=== PATIENT | female | born 1940 | race African-American/Black ===

== ENCOUNTER 2020-12-03 18:44 | Inpatient (IN) | payer MEDICARE, MEDICAID, SELFPAY ==
[2020-12-03] VITALS (14 sets, daily range): BP systolic 116–142; BP diastolic 65–91; PULSE 57–79; RESP 12–22; TEMP 36.8–37.1; O2SAT 93–100; BMI 21.2
--- NOTE | ~2020-12-03 | CT_ITS ---
EXAMINATION: CT brain wo con DATE: 12/03/2020 20:18 INDICATION: Head injury TECHNIQUE: Computed tomography (CT) of the head was performed without intravenous contrast. The mA wa s adjusted according to patient size. Iterative reconstruction technique was employed. Exam dose: 68 1.00 mGy-cm total exam DLP. COMPARISON: None FINDINGS: Bilateral vertebral artery, basilar artery and bilateral carotid siphon internal carotid ar valerie calcifications. There is nonspecific diminished attenuation of the cerebral white matter, likely due to chronic small vessel ischemic changes. Minimal bilateral basal ganglia calcifications. There is central and cortical cerebral and cerebellar atrophy. No intracranial mass lesion or hemorrhage or cerebrovascular accident is evident. No midline shift or mass effect effect. No subdural or epidural hematoma. No fracture or bone destruction of the cranial vault. Mastoid air cells and paranasal sinuses are unremarkable. IMPRESSION: Cerebral atherosclerosis and chronic small vessel ischemic changes No acute intracranial finding Reviewed, dictated and finalized at [facility]. Reviewed, dictated and finalized at location A.
--- NOTE | ~2020-12-03 | CT_ITS ---
EXAMINATION: CT facial bones wo con DATE: 12/03/2020 20:18 INDICATION: Fall. Pain at top of head, posterior neck TECHNIQUE: Computed tomography (CT) of the facial bones and maxillofacial region was performed withou t intravenous contrast. Automated exposure control and iterative reconstruction technique were employ ed. Exam dose: 681.00 mGy-cm total exam DLP. COMPARISON: None. FINDINGS: The frontozygomatic sutures, orbital rims and tobias, psychotic arches and remainder of the facial bones are intact. No facial bone fracture. Normal alignment at the temporomandibular joints. No mandible fracture. Paranasal sinuses and mastoid air cells are normally developed and aerated. IMPRESSION: No facial fracture Reviewed, dictated and finalized at [facility]. Reviewed, dictated and finalized at location A. IMPRESSION: No facial fracture
--- NOTE | ~2020-12-03 | US_ITS ---
EXAMINATION: US venous doppler [facility] DATE: 12/06/2020 14:41 INDICATION: Lower limb pain and swelling. TECHNIQUE: Grayscale ultrasound images without and with compression and Doppler ultrasound images of the bilateral lower extremity veins were obtained. COMPARISON: None. FINDINGS: The visualized portions of right common femoral vein, profunda (deep) femoral vein, femoral vein, pop liteal vein, peroneal veins, posterior tibial veins, and greater saphenous vein outflow are patent. The visualized portions of left common femoral vein, profunda femoral vein, femoral vein, popliteal v ein, peroneal veins, posterior tibial veins, and greater saphenous vein outflow are patent. IMPRESSION: 1. No deep venous thrombosis. Reviewed, dictated and finalized at location B.
--- NOTE | ~2020-12-03 | XR_ITS ---
XR hip BI 2V w AP pelvis DATE: 12/03/2020 20:28 INDICATION: Pelvic pain following fall TECHNIQUE: AP pelvis. AP and lateral views of each COMPARISON: None FINDINGS: There is diffuse osteopenia. Degenerative disc disease is noted, particularly severe at L4-5 and L5-S1. Calcified uterine fibroids are noted. Normal alignment at the pubic symphysis and sacroiliac joints. No pelvic fracture or bone destruction is evident. No fracture, dislocation, avascular necrosis or bone destruction. Calcification of the iliac and femoral arteries. IMPRESSION: Osteopenia; no pelvic or hip fracture is evident Severe degenerative disc disease at L4-5 and L5-S1 Reviewed, dictated and finalized at location A.
--- NOTE | ~2020-12-03 | XR_ITS ---
XR lumbar spine 2-3V DATE: 12/03/2020 20:29 INDICATION: Fall, back pain TECHNIQUE: AP, lateral, coned lateral lumbosacral views COMPARISON: None FINDINGS: Diffuse osteopenia. No fracture or bone destruction of the lumbar spine is evident. The lumbar pedicles are intact. There is moderate degenerative disc disease at L1-2 and L2-3, mild degenerative disease at L3-4. There is severe degenerative disc disease and mild grade 1 anterolisthesis at L4-5 due to degenerativ e change at the apophyseal joints.. There is severe degenerative disc disease at L5-S1. The cardiac joints are unremarkable. Surgical clips, right upper quadrant, consistent with cholecystectomy. Multiple calcified uterine fibroids. IMPRESSION: Diffuse osteopenia Multilevel degenerative disc disease, particularly severe at L4-5 Degenerative changes of facet joints with associated grade 1 anterolisthesis at L4-5 Status post cholecystectomy Reviewed, dictated and finalized at location A.
--- NOTE | ~2020-12-03 | CT_ITS ---
EXAMINATION: CT cervical spine wo con DATE: 12/03/2020 20:18 INDICATION: Fall. Posterior neck pain TECHNIQUE: Computed tomography (CT) of the cervical spine was performed without intravenous contrast. Automated exposure control and iterative reconstruction technique were employed. Exam dose: 681.00 mGy-cm total exam DLP. COMPARISON: None FINDINGS: C1 and C2 are normally aligned and the odontoid process is intact. No fracture or dislocati on or locked facet or prevertebral soft tissue swelling. Prominent uncovertebral joint spurring is noted at C4-5, C5-6 and C6-7. Degenerative changes of the a pophyseal joints in particular at C7-T1 bilaterally. There is severe degenerative disc disease at C4-5, C5-6 and C6-7 with mild retrolisthesis at C4-5, mi nimal retrolisthesis at C5-6 and C6-7.. IMPRESSION: There are extensive degenerative changes; no fracture or dislocation Reviewed, dictated and finalized at [facility]. Reviewed, dictated and finalized at location A. IMPRESSION: There are extensive degenerative changes; no fracture or dislocati on
--- NOTE | ~2020-12-03 | XR_ITS ---
XR thoracic spine 2V DATE: 12/03/2020 20:29 INDICATION: Fall. Back pain. TECHNIQUE: AP, lateral, swimmer views COMPARISON: None FINDINGS: Diffuse osteopenia. Minimal levoscoliosis. No recent fracture or bone destruction. The thoracic pedicles are intact. There is degenerative spurring of the mid and lower thoracic spine. No paraspinal soft tissue thicken ing. IMPRESSION: Osteopenia and degenerative change; no apparent recent fracture Reviewed, dictated and finalized at location A.
--- NOTE | 2020-12-03 18:46 | ECG_ITS ---
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
[2020-12-03 19:07] LABS: Basophils Percent Auto 0.1 % (0.2-1.2); Hematocrit 37.9 % (37.0-47.0); Hemoglobin 12.6 g/dL (12.0-15.0); Immature Granulocyte Absolute 0.03 K/mm3 (0.00-0.031); Immature Granulocyte Percent A 0.3 % (0-0.5); Lymphocytes Absolute Auto 0.58 K/mm3 (0.9-3.2); Lymphocytes Percent Auto 5.6 % (18.3-44.2); Mean Corpuscular HGB Conc 33.2 g/dl (32-36); Mean Corpuscular Hemoglobin 26.9 pg (26-34); Mean Platelet Volume 10.3 fl (7.4-10.4); Monocytes Absolute Auto 1.2 K/mm3 (0.1-0.6); Monocytes Percent Auto 11.2 % (2.6-8.5); Neutrophils Absolute Auto 8.6 K/mm3 (1.3-6.7); Neutrophils Percent Auto 82.8 % (45.5-73.1); Platelet Count Result 301 k/mm3 (150-375); Red Blood Count 4.68 M/mm3 (4.2-5.4); Red Cell Distribution Width 14.3 % (11.5-14.5); White Blood Count 10.4 K/mm3 (4.5-10.0)
[2020-12-03 19:16] LABS: Anion Gap 11 mmol/L (8-16); Blood Urea Nitrogen 16 mg/dL (7-17); Calcium 9.4 mg/dL (8.4-10.2); Carbon Dioxide 24 mmol/L (22-30); Chloride 106 mmol/L (98-107); Estimated Glomerular Filt Rate > 60; Glucose 181 mg/dL (65-105); Potassium 3.1 mmol/L (3.4-5.0); Sodium 141 mmol/L (137-145)
--- NOTE | 2020-12-03 19:35 | PC.NURSE ---
Received report from BARBARA Romero. Assumed care of patient at this time.
[2020-12-03 19:45] LABS: Add Urine Microscopic? YES; Appearance Urine Cloudy (Clear); Bacteria Urine 4+ /hpf; Bilirubin Urine Negative (Negative); Blood Urine 2+ (Negative); Color Urine Amber (Yellow); Glucose Urine UA Negative (Negative); Ketones Urine 1+ mg/dL (Negative); Leukocyte Esterase Ur 2+ LEU/UL (Negative); Mucus Urine Heavy /lpf; Nitrate Urine Negative (Negative); Protein Urine 3+ mg/dL (Negative); Squamous Epithelial Cell Urine Many /hpf (Few); Urobilinogen Urine Negative mg/dL (<2.0); WBC Clumps Urine Present /HPF; WBC Urine >75 /hpf
[2020-12-03] MEDS: SODIUM CHLORIDE 0.9% IV 1,000 ML 999 ML IV CONT (19:46)
[2020-12-03 20:17] LABS: Prothrombin Time 13.9 Seconds (11.1-14.7)
[2020-12-03 20:18] LABS: Partial Thromboplastin Time 41.7 SECONDS (22.3-36.8)
[2020-12-03 20:21] LABS: Alanine Aminotransferase 24 U/L (4-35); Albumin Level 3.4 g/dL (3.5-5.1); Alkaline Phosphatase 85 U/L (38-126); Aspartate Amino Transferase 48 U/L (14-36); Bilirubin,Total 0.6 mg/dL (0.2-1.3); Creatine Kinase 418 U/L (30-135); Magnesium 1.1 mg/dL (1.6-2.3)
[2020-12-03 20:32] LABS: Troponin I 0.018 ng/mL (0.000-0.034)
--- NOTE | 2020-12-03 21:19 | ED.GENADULT ---
HPI - General Adult General Chief complaint: Fall Stated complaint: UNRESPONSIVE Time Seen by Provider: 12/03/20 19:24 History of Present Illness HPI narrative: Patient 80-year-old female who presents the emergency department with chief complaint of frequent falls and generalized weakness. The patient lives independently and her son checks on her every few days patient states over the last several days she has been having episodes where she falls and then has to crawl on the floor but this evening she fell laid on the floor for she thinks probably approximately 24 hours patient denies loss of consciousness does report that she hit her head when she fell and reports that she had pain in her neck. Patient states her hips are sore and the patient states that she just feels much weaker than normal. Patient denies chest pain denies shortness of breath. The patient reports symptoms are now improved by anything nor they worsened by anything. Related Data Home Medications Medication Instructions Recorded Confirmed acetaminophen 500 mg tablet 500 mg PO DAILY PRN tablet 09/15/19 08/02/20 amlodipine 5 mg tablet 5 mg PO DAILY 09/15/19 08/02/20 aspirin 81 mg chewable tablet 81 mg PO DAILY 09/15/19 08/02/20 bismuth subsalicylate 262 mg 2 tablet PO .prn tablet 09/15/19 08/02/20 chewable tablet blood sugar diagnostic #10 each 09/15/19 08/02/20 calcium carbonate 200 mg calcium 200 mg PO .prn tablet 09/15/19 08/02/20 (500 mg) chewable tablet calcium carbonate 500 mg calcium 500 mg PO DAILY 09/15/19 08/02/20 (1,250 mg) tablet multivit with 1 tablet PO DAILY 09/15/19 08/02/20 cwyexink-smzp-XT-lutein 8 mg iron-400 mcg-300 mcg tablet potassium chloride 20 mEq 20 meq PO DAILY 09/15/19 08/02/20 tablet,extended release telmisartan 40 mg tablet 40 mg PO DAILY 09/15/19 08/02/20 Allergies Allergy/AdvReac Type Severity Reaction Status Date / Time codeine Allergy Unknown Unknown Verified 12/03/20 19:46 Review of Systems Review of Systems: Narrative: A 10 system review of systems was completed on the patient and is negative except for what is stated in the HPI. Nursing and ancillary documentation was reviewed. [facility] Past Medical History Medical History (Updated 12/03/20 @ 21:21 by Sathya Clifton MD) Anemia Arthritis Cataracts, both eyes Chicken pox Diabetes FH: cholecystectomy (~1998) FHx: migraine headaches Glaucoma High cholesterol Hx of one miscarriage Kidney disease Tonsillitis Family History Family History Father , 79 Heart attack Mother , 83 Heart attack Exam Narrative: Exam Narrative: GENERAL: Well-appearing, well-nourished, and in no acute distress. HEAD: Normocephalic, atraumatic. EYES: PERRLA and EOMI. ENT: Nares clear, no rhinorrhea or epistaxis. Mucous membranes moist. NECK: Supple. Mild tenderness to palpation of the midline of the cervical spine CHEST: Clear to auscultation. No respiratory distress. HEART: Regular rate and rhythm. No murmur heard. Normal peripheral pulses. ABDOMEN: Soft, nontender, nondistended, normal active bowel sounds. EXTREMITIES: Normal range of motion. No edema. SKIN: Warm, dry, no rash. NEURO: No focal deficits. Alert and oriented x3. PSYCH: Normal mood and affect. Course Vital Signs Vital signs: Vital Signs Temperature 36.9 C 12/03/20 18:47 Pulse Rate 61 12/03/20 18:47 Respiratory Rate 18 12/03/20 18:47 Blood Pressure 116/91 H 12/03/20 18:47 Pulse Oximetry 100 12/03/20 18:47 Temperature 36.9 C 12/03/20 18:47 Pulse Rate 58 L 12/03/20 20:50 Respiratory Rate 19 12/03/20 20:50 Blood Pressure 116/91 H 12/03/20 18:55 Pulse Oximetry 100 12/03/20 20:50 Medical Decision Making Vital Signs Vital Signs: Vital Signs Temperature 36.9 C 12/03/20 18:47 Pulse Rate 61 12/03/20 18:47 Respiratory Rate 18 12/03/20 18:47 Blood Pr
[2020-12-03] MEDS: MAGNESIUM SULF 4 GM/WATER100ML 4 GM/100 ML BAG IVPB (22:17)
[2020-12-03] MEDS: POTASSIUM CHLORIDE 20 MEQ PACKET (FOR LIQUID) 40 MEQ PO (22:19)
--- NOTE | 2020-12-03 23:02 | ADMGEN ---
This patient, Luna Conner, was admitted to Medical Room 255-. Patient/family oriented to hospital policies and general routines including ID bracelet, bed and alarms, visiting hours, pain management, procedures, bathroom and other care routines, personal items, smoking policy, room service/diet, and visiting hours. Information on how to activate the Rapid Response Team has been discussed. Patient/Family are encouraged to report perceived risks to care and to ask questions if they do not understand what they are told or what they should do.
[2020-12-03] MEDS: SODIUM CHLORIDE 0.9% IV 1,000 ML 125 ML IV CONT (23:28)
--- NOTE | 2020-12-03 23:56 | PC.NURSE ---
Called Patients Son, Moses Warner per telephone. Discussed patients history and current medications. He said she uses [facility] and she just received Eye drops from doctor that they will bring in tomorrow she has not filled her eye drops at [facility]. Unable to add the Eye drops into her medication list. Son said her eye drops are at her house. He will bring them in tomorrow.
[2020-12-04] VITALS (8 sets, daily range): BP systolic 98–133; BP diastolic 61–74; PULSE 60–117; RESP 16–20; TEMP 36.3–36.6; O2SAT 94–99
--- NOTE | 2020-12-04 03:37 | PM.IMHP ---
H&P: HPI History of Present Illness Date/Time: 12/04/20 03:37 Chief Complaint: Fall Narrative: 80-year-old female with past medical history of type 2 diabetes, hypertension and urge urinary incontinence who presented to the ER via EMS after being found down after falling at home. The patient lives in her own home but her son comes and checks on her every couple of days. It is unclear exactly how long the patient was down on the floor. It is assumed that the patient was on the floor for 24 hours. The patient's son reports the patient has been weaker than usual. She had evidently been getting up from using the restroom and felt weak and fell to the floor. She is usually able to crawl to get assistance or to use furniture to get up. This time she was so weak she was unable to crawl back to her bedroom. From what I can tell it sounds as if the patient has had multiple falls at home. She cannot give a time frame as to the falls. She reports that she hurts all over. The patient evidently has some episodes of confusion at baseline. The patient denies any head injury but reports that she hurts all over. She reports that she has been walking with a cane. She has chronic urge incontinence and wears depends at home. She denies any dysuria. She states that her urine may be more foul-smelling than usual. She denies any chest pain or shortness of breath. She has not had any cough or congestion. Review of Systems Review of Systems: Narrative: 12 systems were reviewed with pertinent positives and negatives per HPI. Except as documented in the HPI, all other systems were reviewed and are negative. However, the patient has periods of confusion making review of systems difficult PMF Past Medical History Medical History (Updated 12/04/20 @ 09:07 by Ricarda Starkey DO) Anemia Arthritis Chicken pox Dementia Mild dementia Diabetes Essential hypertension GERD (gastroesophageal reflux disease) Glaucoma High cholesterol Urge urinary incontinence Surgical History Surgical History (Updated 12/04/20 @ 03:40 by Ricarda Starkey DO) Hx of cholecystectomy (~1998) Status post cataract extraction of both eyes with insertion of intraocular lens Family History Family History Father , 79 Heart attack Mother , 83 Heart attack Social History Social History (Updated 12/04/20 @ 08:59 by Ricarda Starkey, DO) Social History: She is and lives at home alone. 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 Smoking status: Former smoker Tobacco type: cigarettes Additional smoking assessment comments: Pt states she smoked for about 9years Alcohol intake: never Substance use: never Substance use type: does not use Gender identity (if verbalized by the patient): Female Spiritual care concerns: No Meds Home Medications and Allergies Home Medications Medication Instructions Recorded Confirmed Type acetaminophen 500 mg tablet 500 mg PO DAILY PRN tablet 09/15/19 12/03/20 History amlodipine 5 mg tablet 5 mg PO DAILY 09/15/19 12/03/20 History potassium chloride 20 mEq 20 meq PO DAILY 09/15/19 12/03/20 History tablet,extended release atorvastatin 40 mg tablet 40 mg PO DAILY #90 tablet 10/06/20 12/03/20 Rx metoprolol succinate 200 mg 200 mg PO BID #180 tablet 10/06/20 12/03/20 Rx tablet,extended release 24 hr metformin 1,000 mg PO BID 12/03/20 12/03/20 History oxybutynin chloride 5 mg PO BID 12/03/20 12/03/20 History pantoprazole 40 mg PO DAILY 12/03/20 12/03/20 History Allergies Allergy/AdvReac Type Severity Reaction Status Date / Time codeine Allergy Unknown Unknown Verified 12/04/20 04:14 Vital Signs Vital Signs - 24 hr 12/03/20 18:47 12/03/20 18:55 12/03/20 18:57 Temperature 98.5 F Pulse Rate 61 61 57 L Respiratory Rate 18 H Blood Pressure 116/91 H 116/91 H Pulse Oximetry 100 99 100 12/03/20 19
[2020-12-04 05:38] LABS: Basophils Percent Auto 0.1 % (0.2-1.2); Hematocrit 38.5 % (37.0-47.0); Hemoglobin 12.1 g/dL (12.0-15.0); Immature Granulocyte Absolute 0.03 K/mm3 (0.00-0.031); Immature Granulocyte Percent A 0.4 % (0-0.5); Lymphocytes Absolute Auto 0.77 K/mm3 (0.9-3.2); Lymphocytes Percent Auto 9.4 % (18.3-44.2); Mean Corpuscular HGB Conc 31.4 g/dl (32-36); Mean Corpuscular Hemoglobin 26.2 pg (26-34); Mean Corpuscular Volume 83.3 fl (80-100); Mean Platelet Volume 10.3 fl (7.4-10.4); Monocytes Absolute Auto 1.1 K/mm3 (0.1-0.6); Monocytes Percent Auto 13.4 % (2.6-8.5); Neutrophils Absolute Auto 6.3 K/mm3 (1.3-6.7); Neutrophils Percent Auto 76.7 % (45.5-73.1); Platelet Count Result 281 k/mm3 (150-375); Red Blood Count 4.62 M/mm3 (4.2-5.4); Red Cell Distribution Width 14.6 % (11.5-14.5); White Blood Count 8.2 K/mm3 (4.5-10.0)
[2020-12-04 05:50] LABS: Anion Gap 8 mmol/L (8-16); Blood Urea Nitrogen 12 mg/dL (7-17); Calcium 8.6 mg/dL (8.4-10.2); Carbon Dioxide 25 mmol/L (22-30); Chloride 110 mmol/L (98-107); Creatine Kinase 218 U/L (30-135); Estimated CRCL calculation 59 ml/min; Estimated Glomerular Filt Rate > 60; Glucose 154 mg/dL (65-105); Potassium 3.3 mmol/L (3.4-5.0); Sodium 143 mmol/L (137-145)
[2020-12-04] MEDS: SODIUM CHLORIDE 0.9% IV 1,000 ML 125 ML IV CONT (07:31)
[2020-12-04 07:53] LABS: Hemoglobin A1C 6.9 % (<5.7)
[2020-12-04] MEDS: metFORMIN HCL 500 MG TABLET 1000 MG PO (08:18)
[2020-12-04] MEDS: amLODIPine BESYLATE 5 MG TABLET PO (08:19)
[2020-12-04] MEDS: PANTOPRAZOLE 40 MG TABLET PO (08:19)
[2020-12-04] MEDS: POTASSIUM CHLORIDE 20 MEQ TABLET.ER PO (08:19)
[2020-12-04] MEDS: ATORVASTATIN 40 MG TABLET PO (08:19)
[2020-12-04 08:31] LABS: Glucose Point of Care 157 (65-105)
[2020-12-04] MEDS: ACETAMINOPHEN 325 MG TABLET 650 MG PO (08:31)
--- NOTE | 2020-12-04 11:52 | PM.IMPN ---
Progress Note: A&P Assessment and Plan (1) Urinary tract infection: Qualifiers: Hematuria presence: without hematuria Urinary tract infection type: site unspecified Qualified Code(s): N39.0 - Urinary tract infection, site not specified Code(s): N39.0 - Urinary tract infection, site not specified Status: Acute Assessment and Plan: Urinalysis abnormal upon presentation. Mild leukocytosis upon presentation has resolved. She is afebrile. She noted to previous provider foul-smelling urine but denies additional urinary symptoms. Continue IV Rocephin. Started 12/03/2020 Continue gentle IV fluids Urine culture pending. Await results and tailor antibiotics accordingly (2) Frequent falls: Code(s): R29.6 - Repeated falls Status: Acute Assessment and Plan: Patient had a mechanical fall at home, where she lives alone. It is estimated that she was on the floor for 24 hours. CK is 218. Head CT with no acute findings. No acute injuries identified on facial CT, cervical spine CT, thoracic and lumbar x-ray, or hip and pelvis x-ray. She has a history of multiple falls at home. Fall precautions in place PT/OT eval appreciated Care coordination following. It seems that patient is unsafe to live at home alone. (3) Hypokalemia: Code(s): E87.6 - Hypokalemia Status: Acute Assessment and Plan: Potassium was 3.1 at presentation. It appears that she has chronic hyponatremia as she is on daily potassium supplements. 3.3 today Continue with 20 mEq KCL daily Monitor potassium levels (4) Hypomagnesemia: Code(s): E83.42 - Hypomagnesemia Status: Acute Assessment and Plan: Magnesium was 1.1 at presentation and was supplemented. Improved at 2.0 today. (5) Diabetes mellitus: Qualifiers: Diabetes mellitus complication status: without complication Diabetes mellitus fdc insulin use: without fdc use Diabetes mellitus type: type 2 Qualified Code(s): E11.9 - Type 2 diabetes mellitus without complications Code(s): E11.9 - Type 2 diabetes mellitus without complications Status: Acute Assessment and Plan: A1c is 6.9 (12/04/20). Last blood sugar was 157 Initiate Accu-Cheks, sliding scale insulin, and hypoglycemic protocol Hold home metformin (6) Nausea & vomiting: Code(s): R11.2 - Nausea with vomiting, unspecified Status: Acute Assessment and Plan: She an episode of emesis today following breakfast and lunch. This may be due to acute infection or hypokalemia/hypomagnesemia. No abdominal pain. Antiemetics as needed Will initiate clear liquid diet. Advance diet as tolerated Continue gentle IV fluids Continue Protonix daily Monitor clinically. Consider CT abdomen/pelvis if symptoms persist Subjective Date/time seen: 12/04/20 11:52 Interval history: Date of service: 12/04/2020 Luna Conner is an 80-year-old female with a history of anemia, akz-imvawgh-svfztocas diabetes mellitus, hyperlipidemia, hypertension, GERD, and dementia who is seen in follow-up for urinary tract infection. She is feeling well today. She complains of soreness in her neck and her head which has been present since her fall. She thinks this is improving. She denies weakness, dizziness, or lightheadedness. In regards to her multiple falls, she denied any precipitating symptoms and it seems this is mechanical in nature. She had an episode of emesis following breakfast and again following lunch. She had not been feeling sick at home. She denies abdominal pain. No diarrhea. Denies fevers or chills. No dysphagia. She denies shortness of breath, cough, chest pain, or palpitations. She denies urinary symptoms. No suprapubic pain, flank pain, or back pain. She notes a little bit of swelling in her legs. Her daughter is present at the bedside during interview and exam. Review of Systems Review
[2020-12-04] MEDS: ONDANSETRON INJ 4 MG/2 ML VIAL IV PUSH (11:59)
[2020-12-04 12:03] LABS: Glucose Point of Care 209 (65-105)
[2020-12-04] MEDS: INSULIN ASPART (*BKC) 100 UNITS/ML SUB-Q ×2 (12:03→17:14)
[2020-12-04 16:45] LABS: Glucose Point of Care 298 (65-105)
[2020-12-04] MEDS: SODIUM CHLORIDE 0.9% IV 1,000 ML 75 ML IV CONT (18:17)
[2020-12-04] MEDS: METOPROLOL SUCCINATE EXT REL 100 MG TABCR 200 MG PO (20:32)
[2020-12-04 20:59] LABS: Glucose Point of Care 331 (65-105)
[2020-12-04 20:59] LABS: Glucose Point of Care 325 (65-105)
[2020-12-05] VITALS (7 sets, daily range): BP systolic 99–151; BP diastolic 55–78; PULSE 54–60; RESP 16–20; TEMP 36.4–36.5; O2SAT 99–100
[2020-12-05 05:20] LABS: Hematocrit 35.9 % (37.0-47.0); Hemoglobin 11.3 g/dL (12.0-15.0); Mean Corpuscular HGB Conc 31.5 g/dl (32-36); Mean Corpuscular Hemoglobin 26.3 pg (26-34); Mean Corpuscular Volume 83.5 fl (80-100); Mean Platelet Volume 10.3 fl (7.4-10.4); Platelet Count Result 258 k/mm3 (150-375); Red Cell Distribution Width 14.7 % (11.5-14.5); White Blood Count 6.9 K/mm3 (4.5-10.0)
[2020-12-05 05:44] LABS: Glucose Point of Care 138 (65-105)
[2020-12-05 05:44] LABS: Alanine Aminotransferase 20 U/L (4-35); Albumin Level 2.7 g/dL (3.5-5.1); Alkaline Phosphatase 70 U/L (38-126); Anion Gap 3 mmol/L (8-16); Aspartate Amino Transferase 25 U/L (14-36); Bilirubin,Total 0.3 mg/dL (0.2-1.3); Blood Urea Nitrogen 8 mg/dL (7-17); Calcium 8.1 mg/dL (8.4-10.2); Carbon Dioxide 29 mmol/L (22-30); Chloride 109 mmol/L (98-107); Estimated CRCL calculation 70 ml/min; Estimated Glomerular Filt Rate > 60; Glucose 131 mg/dL (65-105); Magnesium 1.5 mg/dL (1.6-2.3); Potassium 3.3 mmol/L (3.4-5.0); Sodium 141 mmol/L (137-145)
[2020-12-05] MEDS: SODIUM CHLORIDE 0.9% IV 1,000 ML 75 ML IV CONT (05:59)
[2020-12-05 06:49] LABS: Hemoglobin A1C 6.9 % (<5.7)
[2020-12-05 07:57] LABS: Glucose Point of Care 173 (65-105)
[2020-12-05] MEDS: ACETAMINOPHEN 325 MG TABLET 650 MG PO (08:01)
[2020-12-05] MEDS: ATORVASTATIN 40 MG TABLET PO (08:02)
[2020-12-05] MEDS: PANTOPRAZOLE 40 MG TABLET PO (08:02)
[2020-12-05] MEDS: POTASSIUM CHLORIDE 20 MEQ TABLET.ER PO ×2 (08:02→16:09)
[2020-12-05] MEDS: amLODIPine BESYLATE 5 MG TABLET PO (08:02)
[2020-12-05] MEDS: METOPROLOL SUCCINATE EXT REL 100 MG TABCR 200 MG PO (08:02)
[2020-12-05] MEDS: ASPIRIN 81 MG CHEWABLE TABLET PO (09:31)
[2020-12-05] MEDS: OLOPATADINE 0.1% OPHTH SOLN 5 ML BTL 1 DROP EACH EYE ×2 (09:31→16:09)
[2020-12-05] MEDS: MAGNESIUM SULF 2 GM/WATER 50ML 2 GM/50 ML BAG IVPB (09:31)
[2020-12-05 12:20] LABS: Glucose Point of Care 249 (65-105)
[2020-12-05] MEDS: INSULIN ASPART (*BKC) 100 UNITS/ML SUB-Q ×2 (12:29→17:03)
--- NOTE | 2020-12-05 13:40 | PM.IMPN ---
Progress Note: A&P Assessment and Plan (1) Urinary tract infection: Qualifiers: Hematuria presence: without hematuria Urinary tract infection type: site unspecified Qualified Code(s): N39.0 - Urinary tract infection, site not specified Code(s): N39.0 - Urinary tract infection, site not specified Status: Acute Assessment and Plan: Urinalysis abnormal upon presentation. Mild leukocytosis upon presentation has resolved. She is afebrile. She initially noted foul-smelling urine but denies additional urinary symptoms. Urine culture with growth of >100,000 CFU E.coli Continue IV Rocephin based on susceptibility report. Started 12/03/2020 Discontinue IV fluids as she is tolerating p.o. intake (2) Frequent falls: Code(s): R29.6 - Repeated falls Status: Acute Assessment and Plan: Patient had a mechanical fall at home, where she lives alone. It is estimated that she was on the floor for 24 hours. CK is 218. Head CT with no acute findings. No acute injuries identified on facial CT, cervical spine CT, thoracic and lumbar x-ray, or hip and pelvis x-ray. She has a history of multiple falls at home. Fall precautions in place PT/OT eval appreciated Care coordination following. It seems that patient is unsafe to live at home alone. Initially resistant to SNF placement, today however family and patient both agreeable. Will await placement (3) Hypokalemia: Code(s): E87.6 - Hypokalemia Status: Acute Assessment and Plan: Potassium was 3.1 at presentation. It appears that she has chronic hyponatremia as she is on daily potassium supplements. Potassium 3.3 today Continue with 20 mEq KCL. Changed to b.i.d. Monitor potassium levels (4) Hypomagnesemia: Code(s): E83.42 - Hypomagnesemia Status: Acute Assessment and Plan: Magnesium was 1.1 at presentation and was supplemented with improvement to 2.0. Today low again at 1.5, may be due to vomiting yesterday. 2 g IV magnesium administered Monitor magnesium levels. She will probably need to be started on a daily magnesium supplement (5) Diabetes mellitus: Qualifiers: Diabetes mellitus complication status: without complication Diabetes mellitus intermediate accountant insulin use: without intermediate accountant use Diabetes mellitus type: type 2 Qualified Code(s): E11.9 - Type 2 diabetes mellitus without complications Code(s): E11.9 - Type 2 diabetes mellitus without complications Status: Acute Assessment and Plan: A1c is 6.9 (12/04/20). Reviewed and have been elevated above target. She had a blood sugar in the 300s yesterday evening. Last blood sugar 249. Initiate Accu-Cheks, high-dose sliding scale insulin, and hypoglycemic protocol Resume home metformin Administer 12 units Lantus tonight (6) Nausea & vomiting: Code(s): R11.2 - Nausea with vomiting, unspecified Status: Acute Assessment and Plan: She an episode of emesis yesterday following breakfast and lunch. This may be due to acute infection or hypokalemia/hypomagnesemia. No abdominal pain. This has resolved today and she is tolerating her diet. Antiemetics as needed Continue low-fat, bland diet. Go back to clears if vomiting again. Discontinue IV fluids as she has been tolerating p.o. intake today and has been adequately rehydrated Continue Protonix daily Monitor clinically. Subjective Date/time seen: 12/05/20 13:40 Interval history: Date of service: 12/05/2020 Luna Conner is an 80-year-old female with a history of anemia, nxn-cbinqco-gtrdodwgp diabetes mellitus, hyperlipidemia, hypertension, GERD, and dementia who is seen in follow-up for urinary tract infection. She is feeling well today. She denies urinary symptoms. She denies lower abdominal pain, flank pain, back pain. No fever or chills. She has been able to tolerate a bland diet today. No further nausea or vomiting. No jeremias
[2020-12-05] MEDS: metFORMIN HCL 500 MG TABLET 1000 MG PO (16:09)
[2020-12-05 16:42] LABS: Glucose Point of Care 221 (65-105)
[2020-12-05] MEDS: INSULIN GLARGINE (*BKC) 100 UNITS/ML 12 UNITS SUB-Q (20:47)
[2020-12-05 21:32] LABS: Glucose Point of Care 153 (65-105)
[2020-12-06] VITALS (8 sets, daily range): BP systolic 100–128; BP diastolic 53–78; PULSE 52–110; RESP 16–21; TEMP 36–36.2; O2SAT 100
[2020-12-06] MEDS: METOPROLOL SUCCINATE EXT REL 100 MG TABCR 200 MG PO ×3 (00:34→20:05)
[2020-12-06] MEDS: ACETAMINOPHEN 325 MG TABLET 650 MG PO (05:07)
[2020-12-06 05:45] LABS: Hematocrit 33.2 % (37.0-47.0); Hemoglobin 10.6 g/dL (12.0-15.0)
[2020-12-06 06:06] LABS: Anion Gap 2 mmol/L (8-16); Blood Urea Nitrogen 11 mg/dL (7-17); Calcium 8.6 mg/dL (8.4-10.2); Carbon Dioxide 28 mmol/L (22-30); Chloride 109 mmol/L (98-107); Estimated CRCL calculation 59 ml/min; Estimated Glomerular Filt Rate > 60; Glucose 132 mg/dL (65-105); Magnesium 1.5 mg/dL (1.6-2.3); Potassium 3.9 mmol/L (3.4-5.0); Sodium 139 mmol/L (137-145)
[2020-12-06 08:16] LABS: Glucose Point of Care 140 (65-105)
[2020-12-06] MEDS: PANTOPRAZOLE 40 MG TABLET PO (09:34)
[2020-12-06] MEDS: POTASSIUM CHLORIDE 20 MEQ TABLET.ER PO ×2 (09:34→17:38)
[2020-12-06] MEDS: ASPIRIN 81 MG CHEWABLE TABLET PO (09:34)
[2020-12-06] MEDS: amLODIPine BESYLATE 5 MG TABLET PO (09:34)
[2020-12-06] MEDS: metFORMIN HCL 500 MG TABLET 1000 MG PO ×2 (09:34→17:37)
[2020-12-06] MEDS: ATORVASTATIN 40 MG TABLET PO (09:35)
[2020-12-06] MEDS: OLOPATADINE 0.1% OPHTH SOLN 5 ML BTL 1 DROP EACH EYE ×2 (09:37→17:37)
--- NOTE | 2020-12-06 11:06 | PM.IMPN ---
Progress Note: A&P Assessment and Plan (1) Urinary tract infection: Qualifiers: Hematuria presence: without hematuria Urinary tract infection type: site unspecified Qualified Code(s): N39.0 - Urinary tract infection, site not specified Code(s): N39.0 - Urinary tract infection, site not specified Status: Acute Assessment and Plan: Urinalysis abnormal upon presentation. Mild leukocytosis upon presentation has resolved. She is afebrile. She initially noted foul-smelling urine but denies additional urinary symptoms. Urine culture with growth of >100,000 CFU E.coli Continue IV Rocephin based on susceptibility report. Started 12/03/2020 Hopeful discharge today. Will plan to transition to PO Cefdinir upon discharge to complete a 7 day course of antibiotic therapy. (2) Frequent falls: Code(s): R29.6 - Repeated falls Status: Acute Assessment and Plan: Patient had a mechanical fall at home, where she lives alone. It is estimated that she was on the floor for 24 hours. CK is 218. Head CT with no acute findings. No acute injuries identified on facial CT, cervical spine CT, thoracic and lumbar x-ray, or hip and pelvis x-ray. She has a history of multiple falls at home. Fall precautions in place PT/OT eval appreciated Care coordination following. Planning for SNF placement. COVID-19 test pending for placement. Hopeful discharge today upon negative COVID test. (3) Hypokalemia: Code(s): E87.6 - Hypokalemia Status: Acute Assessment and Plan: Potassium was 3.1 at presentation. It appears that she has chronic hyponatremia as she is on daily potassium supplements. Potassium 3.9 today Continue with home 20 mEq KCL Monitor potassium levels (4) Hypomagnesemia: Code(s): E83.42 - Hypomagnesemia Status: Acute Assessment and Plan: Magnesium was slightly decreased has been supplemented with IV magnesium. Magnesium slightly decreased at 1.5 again today. 2 g IV magnesium administered Begin 400 mg PO magnesium oxide daily upon discharge. Plan to repeat mag levels at nursing facility in 1 week. (5) Diabetes mellitus: Qualifiers: Diabetes mellitus type: type 2 Diabetes mellitus nursing home insulin use: without nursing home use Diabetes mellitus complication status: without complication Qualified Code(s): E11.9 - Type 2 diabetes mellitus without complications Code(s): E11.9 - Type 2 diabetes mellitus without complications Status: Acute Assessment and Plan: A1c is 6.9 (12/04/20). Reviewed and had been elevated above target but are improving. Last blood sugar 132. Accu-Cheks, high-dose sliding scale insulin, and hypoglycemic protocol Continue home metformin 12 units Lantus qHS while inpatient (6) Nausea & vomiting: Code(s): R11.2 - Nausea with vomiting, unspecified Status: Acute Assessment and Plan: She an episode of emesis on 12/04 following breakfast and lunch. This may have been due to acute infection or hypokalemia/hypomagnesemia. No abdominal pain. This has resolved today and she is tolerating her diet. She was rehydrated with IV fluids Antiemetics as needed Continue low-fat, bland diet. Go back to clears if vomiting again. Continue Protonix daily Monitor clinically. (7) Lower extremity edema: Code(s): R60.0 - Localized edema Status: Acute Assessment and Plan: She has 1+ edema bilateral lower extremities. This appears to be dependent edema and reportedly improves with leg elevation. She complains of bilateral calf tenderness. Homans sign negative. Elevate extremities Obtain bilateral venous Doppler Consider Behzad wrap for compression Subjective Date/time seen: 12/06/20 11:06 Interval history: Date of service: 12/06/2020 Luna Conner is an 80-year-old female with a history of anemia, jxg-uhnnhhd-yuzctegmh diabetes mellitus, hyperli
[2020-12-06] MEDS: MAGNESIUM SULF 2 GM/WATER 50ML 2 GM/50 ML BAG IVPB (11:30)
[2020-12-06 13:02] LABS: Glucose Point of Care 182 (65-105)
[2020-12-06 16:57] LABS: Glucose Point of Care 179 (65-105)
[2020-12-06 19:04] LABS: SARS-CoV-2 RNA PCR Negative
[2020-12-06] MEDS: INSULIN GLARGINE (*BKC) 100 UNITS/ML 12 UNITS SUB-Q (20:10)
[2020-12-06 20:50] LABS: Glucose Point of Care 171 (65-105)
[2020-12-07] MEDS: ACETAMINOPHEN 325 MG TABLET 650 MG PO ×2 (04:23→10:05)
[2020-12-07 05:32] LABS: Hemoglobin 11.6 g/dL (12.0-15.0)
[2020-12-07 06:00] VITALS: BP 131/56; PULSE 50; RESP 21; TEMP 36.3; O2SAT 100
[2020-12-07 06:19] LABS: Anion Gap 3 mmol/L (8-16); Blood Urea Nitrogen 11 mg/dL (7-17); Calcium 8.9 mg/dL (8.4-10.2); Carbon Dioxide 31 mmol/L (22-30); Chloride 106 mmol/L (98-107); Estimated CRCL calculation 59 ml/min; Estimated Glomerular Filt Rate > 60; Glucose 95 mg/dL (65-105); Magnesium 1.3 mg/dL (1.6-2.3); Potassium 3.9 mmol/L (3.4-5.0); Sodium 140 mmol/L (137-145)
[2020-12-07 08:36] LABS: Glucose Point of Care 89 (65-105)
[2020-12-07] MEDS: metFORMIN HCL 500 MG TABLET 1000 MG PO ×2 (09:47→17:10)
[2020-12-07] MEDS: POTASSIUM CHLORIDE 20 MEQ TABLET.ER PO ×2 (09:48→17:10)
[2020-12-07] MEDS: MAGNESIUM OXIDE 400 MG TABLET PO (09:48)
[2020-12-07] MEDS: ASPIRIN 81 MG CHEWABLE TABLET PO (09:48)
[2020-12-07] MEDS: amLODIPine BESYLATE 5 MG TABLET PO (09:48)
[2020-12-07] MEDS: ATORVASTATIN 40 MG TABLET PO (09:48)
[2020-12-07 09:49] VITALS: PULSE 64
[2020-12-07] MEDS: METOPROLOL SUCCINATE EXT REL 100 MG TABCR 200 MG PO (09:49)
[2020-12-07] MEDS: PANTOPRAZOLE 40 MG TABLET PO (09:49)
[2020-12-07] MEDS: OLOPATADINE 0.1% OPHTH SOLN 5 ML BTL 1 DROP EACH EYE ×2 (09:49→17:10)
[2020-12-07] MEDS: MAGNESIUM SULF 2 GM/WATER 50ML 2 GM/50 ML BAG IVPB (10:06)
[2020-12-07 12:21] LABS: Glucose Point of Care 176 (65-105)
[2020-12-07 14:00] VITALS: BP 109/51; PULSE 51; RESP 16; TEMP 36.2; O2SAT 100
--- NOTE | 2020-12-07 15:56 | PM.DS ---
DS: Admitting Diagnosis Admitting Diagnosis Admitting Diagnosis: uti DS: Discharge Diagnosis Discharge Diagnosis (1) Urinary tract infection: Qualifiers: Hematuria presence: without hematuria Urinary tract infection type: site unspecified Qualified Code(s): N39.0 - Urinary tract infection, site not specified Code(s): N39.0 - Urinary tract infection, site not specified Status: Acute Assessment and Plan: Urinalysis abnormal upon presentation. Mild leukocytosis upon presentation has resolved. She is afebrile. She initially noted foul-smelling urine but denies additional urinary symptoms. Urine culture with growth of >100,000 CFU E.coli Continue IV Rocephin based on susceptibility report. Started 12/03/2020 discharge today continue PO Cefdinir upon discharge to complete a 7 day course of antibiotic therapy (2) Frequent falls: Code(s): R29.6 - Repeated falls Status: Acute Assessment and Plan: Patient had a mechanical fall at home, where she lives alone. It is estimated that she was on the floor for 24 hours. CK is 218. Head CT with no acute findings. No acute injuries identified on facial CT, cervical spine CT, thoracic and lumbar x-ray, or hip and pelvis x-ray. She has a history of multiple falls at home. Fall precautions in place PT/OT eval appreciated Care coordination following. SNF placement. COVID-19 test neg (3) Hypokalemia: Code(s): E87.6 - Hypokalemia Status: Acute Assessment and Plan: Potassium was 3.1 at presentation. It appears that she has chronic hyponatremia as she is on daily potassium supplements. Potassium 3.9 today Continue with home 20 mEq KCL Monitor potassium levels (4) Hypomagnesemia: Code(s): E83.42 - Hypomagnesemia Status: Acute Assessment and Plan: Magnesium was slightly decreased has been supplemented with IV magnesium. Magnesium slightly decreased at 1.5-->1.3 today. 2 g IV magnesium administered Begin 400 mg PO magnesium oxide daily upon discharge repeat mag levels at nursing facility in 2 days (5) Diabetes mellitus: Qualifiers: Diabetes mellitus complication status: without complication Diabetes mellitus technician terminal and repeater insulin use: without technician terminal and repeater use Diabetes mellitus type: type 2 Qualified Code(s): E11.9 - Type 2 diabetes mellitus without complications Code(s): E11.9 - Type 2 diabetes mellitus without complications Status: Acute Assessment and Plan: A1c is 6.9 (12/04/20). Reviewed and had been elevated above target but are improving. Last blood sugar 132. Accu-Cheks, high-dose sliding scale insulin, and hypoglycemic protocol Continue home metformin 12 units Lantus qHS while inpatient (6) Nausea & vomiting: Code(s): R11.2 - Nausea with vomiting, unspecified Status: Acute Assessment and Plan: She an episode of emesis on 12/04 following breakfast and lunch. This may have been due to acute infection or hypokalemia/hypomagnesemia. No abdominal pain. This has resolved today and she is tolerating her diet. She was rehydrated with IV fluids Antiemetics as needed Continue low-fat, bland diet. Go back to clears if vomiting again. Continue Protonix daily Monitor clinically. (7) Lower extremity edema: Code(s): R60.0 - Localized edema Status: Acute Assessment and Plan: She has 1+ edema bilateral lower extremities. This appears to be dependent edema and reportedly improves with leg elevation. She complains of bilateral calf tenderness. Homans sign negative. Elevate extremities Obtain bilateral venous Doppler Consider Behzad wrap for compression DS: Summary Hospital Course Hospital Course: see d/c summary Time Spent with Patient Time attestation: Total time spent providing and/or coordinating discharge services: Exam Narrative: Exam Narrative: Ms. Conner is a thin, well-ap
[2020-12-07 17:30] LABS: Glucose Point of Care 148 (65-105)
== END 2020-12-07 18:00 | DRG 690 ==
LOC: ANHED 21:21 → ANH2MED 12-04 01:20
PROVIDERS: Emergency Medicine; Admitting Provider Internal Medicine; Emergency Provider Emergency Medicine; PCP Emergency Medicine; Visit Provider Physician Assistant
DX: N39.0 Urinary tract infection, site not specified (principal); B96.20 Unspecified Escherichia coli [E. coli] as the cause of diseases classified elsewhere; Z20.822 Contact with and (suspected) exposure to COVID-19; R29.6 Repeated falls; W19.XXXA Unspecified fall, initial encounter; E87.6 Hypokalemia; E83.42 Hypomagnesemia; E11.9 Type 2 diabetes mellitus without complications; R11.2 Nausea with vomiting, unspecified; R60.0 Localized edema; M62.81 Muscle weakness (generalized); K21.9 Gastro-esophageal reflux disease without esophagitis; F03.90 Unspecified dementia, unspecified severity, without behavioral disturbance, psychotic disturbance, mood disturbance, and anxiety; I10 Essential (primary) hypertension; H40.9 Unspecified glaucoma; E78.00 Pure hypercholesterolemia, unspecified; Z91.81 History of falling; Z79.82 Long term (current) use of aspirin; Z79.899 Other long term (current) drug therapy; Z98.42 Cataract extraction status, left eye; Z98.41 Cataract extraction status, right eye; Z96.1 Presence of intraocular lens
CPT/HCPCS: 36415; 51701; 70450; 70486; 72070; 72100; 72125; 73521; 80048; 80053; 80076; 81001; 82550; 82948; 83036; 83605; 83735; 84484; 85014; 85018; 85025; 85027; 85610; 85730; 87077; 87086; 87088; 87186; 93005; 93970; 96361; 96365; 97110; 97116; 97161; 97165; 97530; 97535; 99285; A9270; C9803; J0696; J1815; J2405; J3475; J7030; U0003; U0005

== ENCOUNTER → 2021-02-14 17:51 | Outpatient (CLI) | payer MEDICARE, MEDICAID, SELFPAY ==
--- NOTE | ~2021-02-14 | XR_ITS ---
EXAMINATION: XR abdomen obstructive series EXAM DATE: 02/14/2021 19:17 INDICATION: R11.2 - Nausea with vomiting, unspecified.. TECHNIQUE: Frontal upright projection of the upper abdomen, frontal projection of the lower abdomen f or interpretation. There is no prior study for comparison. FINDINGS: There is expected amount of colonic stool and gas. No small bowel dilation, nonobstructiv e bowel gas pattern. Small calcified fibroids. There are cholecystectomy clips. There is no organ omegaly suspected. Moderate to severe disc disease L4-5. There is moderate symmetric bilateral hip p rimary osteoarthritis. There is no free intraperitoneal air. The lung bases are clear. IMPRESSION: Chronic findings. Reviewed, dictated and finalized at location A. IMPRESSION: Chronic findings.
== END ==
PROVIDERS: PCP Emergency Medicine; Visit Provider Emergency Medicine
DX: R11.2 Nausea with vomiting, unspecified (principal)
CPT/HCPCS: 74019

== ENCOUNTER 2022-08-09 09:20 | Outpatient (CLI) | payer MEDICARE, MEDICAID, SELFPAY ==
--- NOTE | ~2022-08-09 | NM_ITS ---
EXAMINATION: NM shelby stress w perfusion DATE: 08/09/2022 12:28 INDICATION: Chest pain TECHNIQUE: Rest images were obtained following intravenous administration of 11 mCi Tc99m tetrofosmin (Myoview). The patient was infused intravenously with Lexiscan (Regadenoson). Then, 32.2 mCi Tc99m t etrofosmin (Myoview) was administered intravenously, and stress images were obtained. Data was recons tructed into short axis and horizontal and vertical long axis SPECT images. Gated SPECT images were a lso obtained. COMPARISON: None. FINDINGS: There is no definite reversible or fixed perfusion abnormality to suggest ischemia or infar ction. There is normal left ventricular chamber size, wall motion and ejection fraction. Left ventr icular ejection fraction measures 67%. IMPRESSION: 1. Normal myocardial perfusion at rest and during stress. 2. Left ventricular ejection fraction measuring 67%. Reviewed, dictated and finalized at location A. 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
--- NOTE | 2022-08-09 09:48 | EST_ITS ---
Patient Info Name: Luna Conner Age: 81 years : 1940 Gender: Female Ht: 62 in Wt: 138 lbs BSA: 1.67 m2 HR: 53 bpm BP: 165 / 61 mmHg Heart Rhythm: Sinus Rhythm Exam Date: 08/09/2022 11:12 AM Exam Location: [facility] Stress Patient Status: Outpatient Admit Date: 08/09/2022 Staff Ordering Physician: Rafal Meraz MD Attending Provider: Rafal Meraz MD Exercise Technologist: Lisandra Ruiz CT Exam Type: CA stress shelby w NM Study Info Indications R07.9 - Chest pain, unspecified A regadenoson stress test was performed. Summary 1. 1. Negative lexiscan stress test for ischemic ST changes by ECG criteria. 2. 2. Baseline hypertension with hypertensive response to lexiscan. 3. 3. Nuclear scan to follow and will be reported separately. Please correlate with it. 4. 4. Patient informed of the above results. Protocol: Lexiscan Stress ECG Details Stage: REST Duration (min): 2 min : 19 sec HR (bpm): 53 SBP (mmHg): 165 DBP (mmHg): 61 Stage: REST Duration (min): 8 min : 55 sec HR (bpm): 57 SBP (mmHg): 165 DBP (mmHg): 61 Stage: STAGE 1 Duration (min): 1 min : 0 sec HR (bpm): 69 SBP (mmHg): 165 DBP (mmHg): 61 Stage: RECOVERY Duration (min): 1 min : 0 sec HR (bpm): 85 SBP (mmHg): 253 DBP (mmHg): 41 Stage: RECOVERY Duration (min): 1 min : 51 sec HR (bpm): 83 SBP (mmHg): 242 DBP (mmHg): 82 Rest HR: 57 bpm Peak HR: 85 bpm Rest Sys BP: 165 mmHg Peak Sys BP: 253 mmHg Max Pred HR: 137 bpm % Max Pred HR: 62 % Target HR: 116 bpm Max RPP: 21,505 bpm*mmHg BP Response: Patient exhibited a hypertensive response with stress Termination Reason: Completed protocol Cardiac Symptoms: Shortness of breath Total Time: 1 min : 0 sec Rest Escobar BP: 61 mmHg Peak Escobar BP: 41 mmHg Total Dose: 0.4 mg Resting ECG Sinus bradycardia. Stress ECG No ST changes. Arrhythmias None. Report Signatures
== END 2022-08-09 09:21 | disposition home or self-care (01) ==
PROVIDERS: PCP Emergency Medicine; Visit Provider Emergency Medicine
DX: R07.9 Chest pain, unspecified (principal)
CPT/HCPCS: 78452; 93017; A9502; J2785

== ENCOUNTER 2022-10-18 00:22 | Day surgery (SDC) | payer MEDICARE, MEDICAID, SELFPAY ==
[2022-10-02 12:15] VITALS: BMI 25.6
[2022-10-18 09:55] VITALS: BP 141/93; PULSE 55; RESP 20; TEMP 36.9; O2SAT 95
[2022-10-18 10:09] LABS: Glucose Point of Care 114 mg/dl (65-105)
[2022-10-18] MEDS: LACTATED RINGERS 1,000 ML 150 ML IV CONT (10:09)
--- NOTE | 2022-10-18 10:17 | PM.HPGS ---
History of Present Illness History of Present Illness Consent: Risks, benefits, and alternatives have been discussed and questions answered. Patient agrees to proceed with procedure. Chief complaint: melena Narrative: Luna Conner is a 81 year old female with intermittent rectal bleeding, last colonoscopy about 14 years ago Review of Systems Constitutional: Constitutional: Denies headache(s) and Denies weakness Eyes: Eyes: Denies blurry vision ENT: Reports Normal hearing present, Denies headache(s) and Denies neck pain Cardiovascular: Cardiovascular: Denies chest pain and Denies dyspnea Respiratory: Respiratory: Denies dyspnea Gastrointestinal: Gastrointestinal: Reports no additional gastrointestinal complaints Genitourinary: Genitourinary: Denies dysuria Musculoskeletal: Musculoskeletal: Denies neck pain Integumentary/Breasts: Skin/Breast: Denies dry skin Neurologic: Reports Normal hearing present, Denies headache(s) and Denies weakness Psychiatric: Psychiatric: Denies anxiety Endocrine: Endocrine: Denies change in body appearance Hematologic/Lymphatic: Hematologic/Lymphatic: Denies easy bleeding Allergic/Immunologic: Allergic/Immunologic: Denies urticaria PMFSH Past Medical History Medical History (Updated 10/18/22 @ 10:18 by Jordi Bazan MD) Anemia Arthritis Chicken pox Dementia Mild dementia Diabetes Essential hypertension GERD (gastroesophageal reflux disease) Glaucoma High cholesterol Rectal bleeding Urge urinary incontinence Surgical History Surgical History Hx of cholecystectomy (~1998) Status post cataract extraction of both eyes with insertion of intraocular lens Family History Family History Father , 79 Heart attack Mother , 83 Heart attack Social History Social History Social History: She is and lives at home alone. 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 Smoking status: Former smoker Tobacco type: cigarettes Additional smoking assessment comments: Pt states she smoked for about 9years Alcohol intake: never Substance use: never Substance use type: does not use Living arrangements: assisted living Gender identity (if verbalized by the patient): Female Spiritual care concerns: No Meds Home Medications and Allergies Home Medications Medication Instructions Recorded Confirmed Type acetaminophen 500 mg tablet 500 mg PO DAILY PRN Pain 09/15/19 10/02/22 History (Tylenol Extra Strength) metformin 1,000 mg tablet 1,000 mg PO BID 12/03/20 10/02/22 History aspirin 81 mg tablet 81 mg PO DAILY 12/04/20 10/02/22 History calcium carbonate 200 mg calcium 200 mg PO BID PRN Heartburn 12/04/20 10/02/22 History (500 mg) chewable tablet (Antacid (calcium carbonate)) calcium carbonate 250 mg chewable 250 mg PO DAILY 12/04/20 10/02/22 History tablet carboxymethylcellulose sodium 1 % 1 drp EACH EYE QID 12/04/20 10/02/22 History eye liquid gel drops multivit with 1 tablet PO DAILY 12/04/20 10/02/22 History mdweeyqh-rgom-IZ-lutein 8 mg iron-400 mcg-300 mcg tablet (Centrum Silver Women) magnesium oxide 400 mg (241.3 mg 400 mg PO DAILY #30 tabs 12/06/20 10/02/22 Rx magnesium) tablet blood sugar diagnostic (Contour #100 ea 02/07/21 02/07/21 Rx Next Test Strips) furosemide 20 mg tablet (Lasix) 20 mg PO QAM #90 tabs 02/07/21 10/02/22 Rx lancets (Microlet Lancet) #300 ea 02/07/21 02/07/21 Rx metoprolol succinate 200 mg 200 mg PO BID #180 tabs 05/20/21 10/02/22 Rx tablet,extended release 24 hr benzonatate 100 mg capsule 100 mg PO TID PRN cough #21 caps 06/28/21 10/02/22 Rx donepezil 10 mg tablet (Aricept) 10 mg PO DAILY #90 tabs 07/24/22 10/02/22 Rx ondansetron HCl 4 mg tablet 4 mg PO Q6H PRN nausea and 07/24/2210/02
--- NOTE | 2022-10-18 10:22 | WPDANESEPPF ---
Anes - Initial Pre Proc Eval Procedure: Operation Date: 10/18/22 11:00 Proposed Procedures p Colonoscopy - Jordi Bazan MD Date/Time: 10/18/22 10:22 Surgeon: Jordi Bazan MD Pre Op Diagnosis: melena Patient Data Age: 81 Gender: F Height: 1.57 m Weight: 61.7 kg Last Vital Signs Temp 98.5 F 10/18/22 09:55 Pulse 55 L 10/18/22 09:55 Resp 20 10/18/22 09:55 BP 141/93 H 10/18/22 09:55 Pulse Ox 95 10/18/22 09:55 O2 Del Method Room Air 10/18/22 09:55 Allergies Allergy/AdvReac Type Severity Reaction Status Date / Time codeine Allergy Unknown Unknown Verified 10/18/22 09:54 Home Medications Medication Instructions Recorded Confirmed Type acetaminophen 500 mg tablet 500 mg PO DAILY PRN Pain 09/15/19 10/02/22 History (Tylenol Extra Strength) metformin 1,000 mg tablet 1,000 mg PO BID 12/03/20 10/02/22 History aspirin 81 mg tablet 81 mg PO DAILY 12/04/20 10/02/22 History calcium carbonate 200 mg calcium 200 mg PO BID PRN Heartburn 12/04/20 10/02/22 History (500 mg) chewable tablet (Antacid (calcium carbonate)) calcium carbonate 250 mg chewable 250 mg PO DAILY 12/04/20 10/02/22 History tablet carboxymethylcellulose sodium 1 % 1 drp EACH EYE QID 12/04/20 10/02/22 History eye liquid gel drops multivit with 1 tablet PO DAILY 12/04/20 10/02/22 History skclqoin-vikq-PH-lutein 8 mg iron-400 mcg-300 mcg tablet (Centrum Silver Women) magnesium oxide 400 mg (241.3 mg 400 mg PO DAILY #30 tabs 12/06/20 10/02/22 Rx magnesium) tablet blood sugar diagnostic (Contour #100 ea 02/07/21 02/07/21 Rx Next Test Strips) furosemide 20 mg tablet (Lasix) 20 mg PO QAM #90 tabs 02/07/21 10/02/22 Rx lancets (Microlet Lancet) #300 ea 02/07/21 02/07/21 Rx metoprolol succinate 200 mg 200 mg PO BID #180 tabs 05/20/21 10/02/22 Rx tablet,extended release 24 hr benzonatate 100 mg capsule 100 mg PO TID PRN cough #21 caps 06/28/21 10/02/22 Rx donepezil 10 mg tablet (Aricept) 10 mg PO DAILY #90 tabs 07/24/22 10/02/22 Rx ondansetron HCl 4 mg tablet 4 mg PO Q6H PRN nausea and 07/24/22 10/02/22 Rx vomiting #90 tabs pantoprazole 40 mg tablet,delayed 40 mg PO DAILY #90 tabs 07/24/22 10/02/22 Rx release amlodipine 5 mg tablet 5 mg PO DAILY 10/02/22 10/02/22 History atorvastatin 40 mg tablet 40 mg PO DAILY 10/02/22 10/02/22 History potassium chloride 20 mEq 20 meq PO DAILY 10/02/22 10/02/22 History tablet,extended release(part/cryst) oxybutynin chloride 5 mg tablet See Rx Instructions .Route 10/13/22 Rx .COMPLEX #180 tabs Laboratory Tests 10/18/22 10:06 POC Capillary Glucose 114 mg/dl H mg/dl (65-105) Patient hx anesthesia problems: none Family hx anesthesia problems: none Results Review: All pre-operative results and documents have been reviewed as part of the pre-operative evaluation. [facility] Past Medical History Medical History (Updated 10/18/22 @ 10:18 by Jordi Bazan MD) Anemia Arthritis Chicken pox Dementia Mild dementia Diabetes Essential hypertension GERD (gastroesophageal reflux disease) Glaucoma High cholesterol Rectal bleeding Urge urinary incontinence Surgical History Surgical History Hx of cholecystectomy (~1998) Status post cataract extraction of both eyes with insertion of intraocular lens Family History Family History Father , 79 Heart attack Mother , 83 Heart attack Social History Social History Social History: She is and lives at home alone. 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 Smoking status: Former smoker Tobacco type: cigarettes Additional smoking assessment comments: Pt states she smoked for about 9years Alcohol intake: never Substance use: never Substance
[2022-10-18 10:44] VITALS: BP 124/54; PULSE 49; RESP 17; O2SAT 96
[2022-10-18 10:54] VITALS: BP 134/86; PULSE 55; RESP 20; O2SAT 100
[2022-10-18 11:04] VITALS: BP 135/82; PULSE 55; RESP 20; O2SAT 100
== END 2022-10-18 11:20 | disposition home or self-care (01) ==
PROVIDERS: PCP Emergency Medicine; Visit Provider Internal Medicine Gastroenterology
PROC: 0DJD8ZZ Inspection of Lower Intestinal Tract, Via Natural or Artificial Opening Endoscopic (ICD-10-PCS; CPT 45378; principal; 2022-10-18 11:00)
DX: K92.1 Melena (principal); K57.30 Diverticulosis of large intestine without perforation or abscess without bleeding; F03.90 Unspecified dementia, unspecified severity, without behavioral disturbance, psychotic disturbance, mood disturbance, and anxiety; D64.9 Anemia, unspecified; E11.9 Type 2 diabetes mellitus without complications; I10 Essential (primary) hypertension; K21.9 Gastro-esophageal reflux disease without esophagitis; E78.00 Pure hypercholesterolemia, unspecified; H40.9 Unspecified glaucoma; Z79.84 Long term (current) use of oral hypoglycemic drugs; Z87.891 Personal history of nicotine dependence
CPT/HCPCS: 45378; 82948; J2704; J7120

== ENCOUNTER 2023-05-30 08:54 | Outpatient (CLI) | payer MEDICARE, SELFPAY | END 2023-05-30 08:55 | disposition home or self-care (01) | LOC: ANHAUDIO 08:56 | PROVIDERS: PCP Emergency Medicine; Visit Provider Emergency Medicine | DX: H91.90 Unspecified hearing loss, unspecified ear (principal) | CPT/HCPCS: 92557; 92567 ==

== ENCOUNTER 2023-08-22 12:19 | Outpatient (CLI) | payer MEDICARE, SELFPAY ==
[2023-08-22 13:22] LABS: SARS-CoV-2 RNA PCR Negative (Negative)
== END 2023-08-22 12:20 | disposition home or self-care (01) ==
LOC: ANHLAB 12:21
PROVIDERS: PCP Emergency Medicine; Visit Provider Emergency Medicine
DX: R05.3 Chronic cough (principal); H93.8X3 Other specified disorders of ear, bilateral; Z20.822 Contact with and (suspected) exposure to COVID-19
CPT/HCPCS: 87635

== ENCOUNTER 2025-03-20 16:19 | Inpatient (IN) | payer MEDICARE, SELFPAY ==
--- NOTE | ~2025-03-20 | XR_ITS ---
EXAMINATION: XR chest 1V portable Exam Date/Time: 03/20/2025 18:15 CDT HISTORY: weakness, confusion Comparison: None. RESULT: Lines, tubes, and devices: None. Lungs and pleura: Focal subsegmental opacity projecting over the left lower lung. Cardiomediastinal silhouette: Stable. Other: No acute osseous or upper abdominal finding. IMPRESSION: Focal, subsegmental atelectasis/consolidation in the left lower lung. Recommend short-term radiograph ic follow-up to ensure resolution. Reviewed, dictated and finalized at location K. IMPRESSION: Focal, subsegmental atelectasis/consolidation in the left lower lung. Recommend short-term radiographic follow-up to ensure resolution.
--- NOTE | ~2025-03-20 | MR_ITS ---
EXAMINATION: MR brain/brain stem wo/w con DATE: 03/21/2025 12:33 INDICATION: Weakness, confusion and right eye vision changes TECHNIQUE: Magnetic resonance imaging (MRI) of the brain and brainstem was performed without and with 13 mL Multihance intravenous contrast. Sequences included sagittal and axial T1-weighted SE, axial d iffusion-weighted FS SE, , axial T2-weighted FLAIR, and axial T2-weighted FSE. Postcontrast axial, sa gittal and coronal T1-weighted FSE was obtained. Apparent diffusion coefficient (ADC) maps were creat ed. COMPARISON: None. FINDINGS: Moderate-sized region of restricted diffusion with associated cytotoxic edema with increased T2 signa l an post fall defect the brain at the left occipital lobe consistent with acute to early subacute in farct. Within this region there is some thin serpiginous gyral enhancement consistent with secondary luxury perfusion in favoring an early subacute chronicity. Also within this region are 2 collections of multiple small foci of susceptibility artifact consistent with secondary petechial hemorrhage. The re are a couple additional small foci of susceptibility artifact in the right occipital lobe and righ t thalamus consistent with additional chronic microhemorrhage, typically seen in the setting of hyper tension. No abnormal intracranial mass lesion. There are multiple scattered small foci of nonspecific increased T2-weighted signal intensity in the cerebral white matter, predominantly involving the lionel p and periventricular white matter. There are no intraparenchymal signal abnormalities seen on the ot her pulse sequences. The ventricles are symmetric and normal in size. There are no abnormal extra-axi al fluid collections. Flow voids are seen in the cerebral arteries on the T2-weighted sequences consi stent with their expected patency. Visualized orbits and soft tissues are unremarkable. IMPRESSION: 1. Moderate-sized likely early subacute infarct with secondary gyral enhancement and some associated petechial hemorrhage in the left occipital lobe. 2. Additional mild scattered mesenteric white matter T2 hyperintensity consistent with chronic small vessel ischemic disease. 3. A couple additional small foci of susceptibility artifact consistent with chronic microhemorrhage at the right occipital lobe and right thalamus. Reviewed, dictated and finalized at location A. IMPRESSION: 1. Moderate-sized likely early subacute infarct with secondary gyral enhancemen t and some associated petechial hemorrhage in the left occipital lobe. 2. Additional mild scattered mesenteric white matter T2 hyperintensity consiste nt with chronic small vessel ischemic disease. 3. A couple additional small foci of susceptibility artifact consistent with ch ronic microhemorrhage at the right occipital lobe and right thalamus.
--- NOTE | ~2025-03-20 | CT_ITS ---
EXAMINATION: CT brain wo con DATE: 03/20/2025 18:57 INDICATION: confusion, vision changes, ramirez . TECHNIQUE: Computed tomography (CT) of the head was performed without intravenous contrast. The mA wa s adjusted according to patient size. Iterative reconstruction technique was employed. The dose-lengt h product was 681.00 mGy-cm. COMPARISON: 12/03/2020. FINDINGS: No acute intracranial hemorrhage or extra-axial fluid collection. No hydrocephalus, mass, or herniation. No acute ischemic infarct. Unremarkable dural venous sinus attenuation. No acute osseous abnormality. Small retention cyst/polyp in the right inferior maxillary sinus, minimal right ethmoid sinus mucosal thickening, the remaining aerated spaces are clear. Moderate atrophy and chronic white matter change. Atherosclerotic intracranial calcification. Bilater al lens replacements. Bilateral basal ganglia calcifications. Empty sella. IMPRESSION: No acute intracranial process. Reviewed, dictated and finalized at location K.
--- NOTE | ~2025-03-20 | CT_ITS ---
EXAMINATION: CTA brain carotid DATE: 03/20/2025 20:13 INDICATION: R vision loss/changes, weakness, confusion TECHNIQUE: Computed tomographic angiography (CTA) of the head and neck was performed with 100 mL Omni paque-350 intravenous contrast. Automated exposure control and iterative reconstruction technique wer e employed. The dose-length product was 945.54 mGy-cm. Maximum intensity projection and volume render ed 3D-reconstructions were created by the technologist on a separate workstation. COMPARISON: CT brain, same date. FINDINGS: CTA HEAD: No large vessel occlusion, aneurysm, high flow vascular malformation, nidus or extravasation. Symmetr ic parenchymal enhancement. Patent cerebral veins. Symmetric CTA NECK: Aortic arch and proximal great vessels: Normal arch anatomy. Atherosclerotic calcifications at the vi sualized aortic arch and proximal great vessels. Right common carotid, carotid bifurcation, and internal carotid artery: Calcified atherosclerotic tremaine que at the carotid bifurcation.There is 0% stenosis of the proximal right internal carotid artery rel ative to normal distal artery lumen diameter (NASCET criteria). Left common carotid, carotid bifurcation, and internal carotid artery: Calcified atherosclerotic plaq ue at the carotid bifurcation.There is 32% stenosis of the proximal left internal carotid artery rela tive to normal distal artery lumen diameter (NASCET criteria). Vertebral arteries: Severe left and moderate right vertebral artery origin stenoses. Vertebral arteri es co-dominant. Other findings: Subcentimeter thyroid hypodensities which require no additional evaluation at this ti me. Degenerative changes in the cervical spine. Mild senescent/emphysematous changes in the lungs. Os teopenia. Patient is edentulous. IMPRESSION: No large vessel intracranial occlusion, high-grade intracranial stenosis, or aneurysm. No carotid artery occlusion, dissection, or significant stenosis. No vertebral artery occlusion or dissection. Severe left and moderate right vertebral artery origin s tenoses. Reviewed, dictated and finalized at location K. IMPRESSION: No large vessel intracranial occlusion, high-grade intracranial stenosis, or an eurysm. No carotid artery occlusion, dissection, or significant stenosis. No vertebral artery occlusion or dissection. Severe left and moderate right dread tebral artery origin stenoses.
--- OUTSIDE RECORDS SUMMARY | 2025-03-20 16:22 | XMS_ITS | Patient Health Record ---
Author Organization [facility] Address [address] [place], [place] [id number] Care Team Providers Care Tower Foreman Name Role Phone AMEE Gonzales Unavailable Tin Sheffield Unavailable Unavailable Reason For Referral No Information Plan Of Treatment No Information Insurance Providers Payer Name Payer Address Payer Phone Subscriber Number Group Number Insured Name Patient Relationship to Insured Coverage Start Date Coverage End Date Medicare Part B [facility] [address] [place] [id number] SISI TRIPP Self - patient is the insured
[2025-03-20 16:26] VITALS: BP 140/69; PULSE 67; RESP 18; TEMP 36.4; O2SAT 99
--- NOTE | 2025-03-20 17:44 | ECG_ITS ---
Test Date: 2025-03-20 18:01:33 Measurements Intervals [place] Rate: 63 P: 88 [place]: 168 QRS: 48 QRSD: 85 T: 62 QT: 413 QTc: 424 Interpretive Statements SINUS RHYTHM BASELINE ARTIFACT- I, II, III, AVR, AVL, AVF, V3 NORMAL ECG No previous ECG available for comparison Electronically Signed On 03-20-2025 19:19:26 CDT by Joe Rivero D.O.
[2025-03-20 18:14] LABS: Hematocrit 40.4 % (37.0-47.0); Hemoglobin 12.6 g/dL (12.0-15.0); Immature Granulocyte Percent A 0.1 % (0-0.5); Lymphocytes Absolute Auto 1.34 K/mm3 (0.9-3.2); Mean Corpuscular HGB Conc 31.2 g/dl (32-36); Mean Corpuscular Hemoglobin 26.1 pg (26-34); Mean Corpuscular Volume 83.6 fl (80-100); Nucleated Red Blood Cells Absolute Auto 0.000 K/mm3 (0.0-0.012); Nucleated Red Blood Cells Perc 0.0 % (0.0-0.2); Platelet Count Result 276 k/mm3 (150-375); Red Blood Count 4.83 M/mm3 (4.2-5.4); White Blood Count 7.3 K/mm3 (4.5-10.0)
[2025-03-20 18:20] LABS: Add Urine Microscopic? YES; Appearance Urine Cloudy (Clear); Glucose Urine UA Negative (Negative); Leukocyte Esterase Ur 1+ LEU/UL (Negative); Need Manual Microscopic Reviewed; Nitrate Urine Positive (Negative); Specific Grav Ur 1.016 (1.001-1.035)
[2025-03-20 18:26] LABS: Alanine Aminotransferase 22 U/L (6-35); Albumin Level 4.2 g/dL (3.5-5.1); Alkaline Phosphatase 109 U/L (38-126); Anion Gap 8 mmol/L (4-12); Aspartate Amino Transferase 40 U/L (14-36); Bilirubin,Total 0.7 mg/dL (0.2-1.3); Blood Urea Nitrogen 16 mg/dL (7-17); Calcium 9.7 mg/dL (8.4-10.2); Carbon Dioxide 25 mmol/L (22-30); Chloride 105 mmol/L (98-107); Estimated CRCL calculation 29 ml/min; Estimated Glomerular Filt Rate 46; Glucose 153 mg/dL (65-110); Potassium 3.6 mmol/L (3.4-5.0); Sodium 138 mmol/L (137-145); Total Protein 7.9 g/dL (6.3-8.2)
--- NOTE | 2025-03-20 18:49 | ED_ITS ---
HPI - Weakness General Chief complaint: Weakness <GLENYS Rome Last Filed: 03/21/25 00:06> Stated complaint: weakness <GLENYS Rome Last Filed: 03/21/25 00:06> Time Seen by Provider: 03/20/25 18:36 <GLENYS Rome Last Filed: 03/21/25 00:06> Source: patient and family <GLENYS Rome Last Filed: 03/21/25 00:06> Mode of arrival: ambulatory <GLENYS Rome Last Filed: 03/21/25 00:06> Limitations: no limitations <GLENYS Rome Last Filed: 03/21/25 00:06> History of Present Illness HPI Narrative: Patient is an 84-year-old female who presents the ED with report of weakness, confusion, right eye vision changes. Patient reports yesterday she began noticing a white spot in the lateral visual field of her right eye. It has been intermittent. She states when the white spot occurs she has a hard time seeing on the right side. Patient's family at bedside reported that patient would attempt to grab her walker and would be grabbing at the air with her right hand. They also report that she has been somewhat confused over the last couple of days and weaker than normal. Patient describes generalized weakness. She denies focal numbness or weakness. No report of slurred speech or facial asymmetry. She does complain of a left-sided headache currently which has been ongoing since yesterday. She has been taking Tylenol. Denies nausea, vomiting, fevers, abdominal pain, chest pain. <GLENYS Rome Last Filed: 03/21/25 00:06> Related Data Home medications: Home Medications ?Medication ?Instructions ?Recorded ?Confirmed ?Last Taken ?Type acetaminophen 500 mg tablet 500 mg PO DAILY PRN Pain 09/15/19 12/10/24 Unknown History (Tylenol Extra Strength) aspirin 81 mg tablet 81 mg PO DAILY 12/04/20 12/10/24 Unknown History calcium carbonate (Antacid 200 mg PO BID PRN Heartburn 12/04/20 12/10/24 Unknown History (calcium carbonate)) calcium carbonate 250 mg chewable 250 mg PO DAILY 12/04/20 12/10/24 Unknown History tablet carboxymethylcellulose sodium 1 % 1 drp EACH EYE QID 12/04/20 12/10/24 Unknown History eye liquid gel drops [id number]-[id number] 8 mg-folic 400 1 tablet PO DAILY 12/04/20 12/10/24 Unknown History mcg-K 50 mcg-lutein 300 mcg tablet (Centrum Silver Women) <Trini Roberts PA-C - Last Filed: 03/21/25 00:06> Allergies/Adverse reactions: Allergies Allergy/AdvReac Type Severity Reaction Status Date / Time codeine Allergy Unknown Unknown Verified 03/21/25 01:47 <Trini Roberts PA-C - Last Filed: 03/21/25 00:06> Review of Systems 2 Review of Systems: All systems reviewed & are unremarkable except as noted in HPI. <Trini Roberts PA-C - Last Filed: 03/21/25 00:06> All systems reviewed & are unremarkable except as noted in HPI and below < Trini Roberts PA-C - Last Filed: 03/21/25 00:06> [facility] Past Medical History Medical History: Medical History Diverticulosis Rectal bleeding Black tarry stools Chest pain Sinusitis Lower extremity edema Nausea & vomiting Dementia Mild dementia GERD (gastroesophageal reflux disease) Urge urinary incontinence Essential hypertension Urinary tract infection High cholesterol Glaucoma Diabetes Chicken pox Arthritis Anemia <Trini Roberts PA-C - Last Filed: 03/21/25 00:06> Surgical History Surgical History: Surgical History Status post cataract extraction of both eyes with insertion of intraocular lens Hx of cholecystectomy (~1998) <Trini Roberts PA-C - Last Filed: 03/21/25 00:06> Family History Family History: Family History Father , 79 Heart attack Mother , 83 Heart attack <Trini Roberts PA-C - Last Filed: 03/21/25 00:06> Social History Social History: Social History Social History: She is and lives at home alone. 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 Smoking status: Former smoker Tobacco type: cigarettes Additional smoking assessment comments: Pt states she smoked for about 9years Alcohol intake: never Substance use: never Substance use type: does not use Do You Feel Safe in your Home?: Yes Lack of Transportation: No Lack of Food: Never True Current Housing: I Have Housing Concerned About Future Housing: No Difficulty Paying Gas/Electric Bills: No Difficulty Paying for Meds: No Currently Unemployed: No Education: Decline to Answer Difficulty w/ Childcare or Family Care: No Living arrangements: assisted living Gender identity (if verbalized by the patient): Female Spiritual care concerns: No <Trini Roberts PA-C - Last Filed: 03/21/25 00:06> Exam 2 Narrative: GENERAL: Elderly, non-toxic, in no acute distress. HEAD: Normocephalic, atraumatic. EYES: PERRL/EOMI, conjunctivae clear bilaterally. No nystagmus. NECK: Supple. No meningeal signs. RESPIRATORY: Airway patent, respirations nonlabored. Clear to auscultation bilaterally, no rales, rhonchi, wheezing. CARDIOVASCULAR: Regular rate and rhythm without murmurs, rubs, or gallops. Peripheral pulses 2+ and equal bilaterally. MUSCULOSKELETAL: Moves all extremities. No gross deformities. SKIN: Warm, dry, normal color. No rashes. NEURO: A&O X3. Speech clear. Follows commands. CN II-XII grossly intact. Sensation grossly intact. No ataxic movements. Strength 5/5 in upper and lower extremities bilaterally. No pronator drift. Equal lock plater strength bilaterally. Visual field significantly decreased in R eye periphery with both eyes open. R eye peripheral vision does seem to be slightly more clear and visualized more appropriately with only right eye open. Left eye visual field seems normal. [id number]-mr-[id number] testing is intact bilaterally, but slightly more uncoordinated on right side. PSYCHIATRIC: Appropriate mood and affect. Normal interaction. <Trini Roberts PA-C - Last Filed: 03/21/25 00:06> Course AIR POLLUTION CONTROL ENGINEER/PA Physician Supervision I agree with midlevel documentation; I performed the medical decision making component of this evaluation. <Cecy Joseph MD - Last Filed: 03/21/25 02:05> Vital Signs Vital signs: Vital Signs Temperature 97.6 F 03/20/25 16:26 Pulse Rate 67 03/20/25 16:26 Respiratory Rate 18 03/20/25 16:26 Blood Pressure 140/69 03/20/25 16:26 Pulse Oximetry 99 03/20/25 16:26 Oxygen Delivery Room Air 03/20/25 16:26 Temperature 97.6 F 03/20/25 16:26 Pulse Rate 67 03/20/25 16:26 Respiratory Rate 18 03/20/25 16:26 Blood Pressure 140/69 03/20/25 16:26 Pulse Oximetry 99 03/20/25 16:26 Oxygen Delivery Room Air 03/20/25 16:26 <Trini Roberts PA-C - Last Filed: 03/21/25 00:06> Vital Signs Temperature 97.6 F 03/20/25 16:26 Pulse Rate 67 03/20/25 16:26 Respiratory Rate 18 03/20/25 16:26 Blood Pressure 140/69 03/20/25 16:26 Pulse Oximetry 99 03/20/25 16:26 Oxygen Delivery Room Air 03/20/25 16:26 Temperature 97.6 F 03/20/25 16:26 Pulse Rate 67 03/20/25 16:26 Respiratory Rate 18 03/20/25 16:26 Blood Pressure 140/69 03/20/25 16:26 Pulse Oximetry 99 03/20/25 16:26 Oxygen Delivery Room Air 03/20/25 16:26 <Cecy Joseph MD - Last Filed: 03/21/25 02:05> MDM - Weakness MDM Narrative Medical decision making narrative: Patient presented to ED with weakness, confusion per family over the past couple of days. Patient also reporting R eye vision changes, described as a white spot in her right lateral visual filed since yesterday. Vital signs are stable upon arrival. Visual acuity is 20-200 bilaterally. Patient does seem to have fairly significant decreased peripheral vision in right eye, though exam is somewhat inconsistent. Extraocular movements intact. Eye itself appears normal. No gaze deviation. She otherwise appears neurologically intact on exam. I do not appreciate any other focal deficits. No strength discrepancies. No facial asymmetry. Sensation grossly intact. Per records, dilated eye exam with the [facility] in 01/11/2025 shows evidence of moderate diabetic retinopathy, hypertensive retinopathy, left eye posterior vitreous detachment. Concern for neurologic etiology versus mine technician issue. Unclear how much of this is related to her chronic ophthalmologic issues. Laboratory studies were obtained and fairly unremarkable. Possibly slight YANE, though no recent records to compare to. Given fluids in the ED. Blood sugar 153. Stable electrolytes. UA does appear consistent with infection. Sent for culture. Started on Rocephin. This may be contributing to report of weakness/confusion per family. EKG without concerning ischemic changes. Normal sinus rhythm. CT brain non con negative CTA brain and carotids does show vertebral artery stenosis, severe on left, moderate on right. No occlusion or dissection. No large vessel occlusion. No carotid artery stenosis. Discussed case with Dr. Zapata, ophthalmology @ [facility], felt sx's more neurologic related vs true ophtho/acute visual emergency. Can transfer if wanted, otherwise recommended continued with neurologic workup, outpatient ophthalmology eval with the [facility] that patient has previously seen. Discussed this with family. Utilize shared decision-making. Family would prefer patient to stay here and be evaluated by neurology here. Discussed case with Dr. Aguilar, neurology, agreed with plan, will consult. MRI in a.m.. Discussed case with Dr. Haider, hospitalist, accepted patient for admission. Med tele with neuro checks. Patient family in agreement with plan. <Trini Roberts PA-C - Last Filed: 03/21/25 00:06> Medical Records Attestation: I reviewed the patient's medical records. <Trini Roberts PA-C - Last Filed: 03/21/25 00:06> Lab Data Attestation: I reviewed the patient's lab results. <Trini Roberts PA-C - Last Filed: 03/21/25 00:06> Result diagrams: 03/20/25 18:07 03/20/25 18:07 <Trini Roberts PA-C - Last Filed: 03/21/25 00:06> Labs: Lab Results 03/20/25 03/20/25 Range/Units 18:00 18:07 WBC 7.3 (4.5-10.0) K/mm3 RBC 4.83 (4.2-5.4) M/mm3 Hgb 12.6 (12.0-15.0) g/dL Hct 40.4 (37.0-47.0) % MCV 83.6 (80-100) fl MCH 26.1 (26-34) pg MCHC 31.2 L (32-36) g/dl RDW 15.1 H (11.5-14.5) % Plt Count 276 (150-375) k/mm3 MPV 10.3 (7.4-10.4) fl Immature Gran % (Auto) 0.1 (0-0.5) % Neut % (Auto) 72.6 (45.5-73.1) % Lymph % (Auto) 18.3 (18.3-44.2) % Ford % (Auto) 8.6 H (2.6-8.5) % Eos % (Auto) 0.0 (0-4.4) % Baso % (Auto) 0.4 (0.2-1.2) % Lymph # (Auto) 1.34 (0.9-3.2) K/mm3 Ford # (Auto) 0.6 (0.1-0.6) K/mm3 Eos # (Auto) 0.0 (0-0.3) K/mm3 Baso # (Auto) 0.0 (0.0-0.1) K/mm3 Abs Immat Gran (auto) 0.01 (0.00-0.031) K/mm3 Absolute Neuts (auto) 5.3 (1.3-6.7) K/mm3 Absolute Nucleated RBC 0.000 (0.0-0.012) K/mm3 Nucleated RBC % 0.0 (0.0-0.2) % Sodium 138 (137-145) mmol/L Potassium 3.6 (3.4-5.0) mmol/L Chloride 105 (98-107) mmol/L Carbon Dioxide 25 (22-30) mmol/L Anion Gap 8 (4-12) mmol/L BUN 16 (7-17) mg/dL Creatinine 1.13 H (0.7-1.0) mg/dL Estim Creat Clear Calc 29 ml/min Estimated GFR 46 L (59 - ) Glucose 153 H (65-110) mg/dL Calcium 9.7 (8.4-10.2) mg/dL Total Bilirubin 0.7 (0.2-1.3) mg/dL AST 40 H (14-36) U/L ALT 22 (6-35) U/L Alkaline Phosphatase 109 (38-126) U/L Total Protein 7.9 (6.3-8.2) g/dL Albumin 4.2 (3.5-5.1) g/dL Urine Color Yellow (Yellow) Urine Appearance Cloudy H (Clear) Urine pH 5.5 (5.0-9.0) Ur Specific [place] 1.016 (1.001-1.035) Urine Protein 3+ H (Negative) mg/dL Urine Glucose (UA) Negative (Negative) mg/dL Urine Ketones Trace H (Negative) mg/dL Ur Blood (Man) 1+ H (Negative) Urine Nitrate Positive H (Negative) Urine Bilirubin Negative (Negative) Urine Urobilinogen 1.0 (<2.0) mg/dL Add Ur Microanalysis Reviewed Leukocyte Esterase Rfl 1+ H (Negative) PATTI/UL Urine RBC 6-10 H (0-2) /hpf Urine WBC 21-50 H (0-3) /hpf Ur Squamous Epith Cells Few (Few) /hpf Urine Bacteria 4+ /hpf Urine Casts 3-5 <Trini Roberts PA-C - Last Filed: 03/21/25 00:06> Lab Results 03/20/25 03/20/25 Range/Units 18:00 18:07 WBC 7.3 (4.5-10.0) K/mm3 RBC 4.83 (4.2-5.4) M/mm3 Hgb 12.6 (12.0-15.0) g/dL Hct 40.4 (37.0-47.0) % MCV 83.6 (80-100) fl MCH 26.1 (26-34) pg MCHC 31.2 L (32-36) g/dl RDW 15.1 H (11.5-14.5) % Plt Count 276 (150-375) k/mm3 MPV 10.3 (7.4-10.4) fl Immature Gran % (Auto) 0.1 (0-0.5) % Neut % (Auto) 72.6 (45.5-73.1) % Lymph % (Auto) 18.3 (18.3-44.2) % Ford % (Auto) 8.6 H (2.6-8.5) % Eos % (Auto) 0.0 (0-4.4) % Baso % (Auto) 0.4 (0.2-1.2) % Lymph # (Auto) 1.34 (0.9-3.2) K/mm3 Ford # (Auto) 0.6 (0.1-0.6) K/mm3 Eos # (Auto) 0.0 (0-0.3) K/mm3 Baso # (Auto) 0.0 (0.0-0.1) K/mm3 Abs Immat Gran (auto) 0.01 (0.00-0.031) K/mm3 Absolute Neuts (auto) 5.3 (1.3-6.7) K/mm3 Absolute Nucleated RBC 0.000 (0.0-0.012) K/mm3 Nucleated RBC % 0.0 (0.0-0.2) % Sodium 138 (137-145) mmol/L Potassium 3.6 (3.4-5.0) mmol/L Chloride 105 (98-107) mmol/L Carbon Dioxide 25 (22-30) mmol/L Anion Gap 8 (4-12) mmol/L BUN 16 (7-17) mg/dL Creatinine 1.13 H (0.7-1.0) mg/dL Estim Creat Clear Calc 29 ml/min Estimated GFR 46 L (59 - ) Glucose 153 H (65-110) mg/dL Calcium 9.7 (8.4-10.2) mg/dL Total Bilirubin 0.7 (0.2-1.3) mg/dL AST 40 H (14-36) U/L ALT 22 (6-35) U/L Alkaline Phosphatase 109 (38-126) U/L Total Protein 7.9 (6.3-8.2) g/dL Albumin 4.2 (3.5-5.1) g/dL Urine Color Yellow (Yellow) Urine Appearance Cloudy H (Clear) Urine pH 5.5 (5.0-9.0) Ur Specific [place] 1.016 (1.001-1.035) Urine Protein 3+ H (Negative) mg/dL Urine Glucose (UA) Negative (Negative) mg/dL Urine Ketones Trace H (Negative) mg/dL Ur Blood (Man) 1+ H (Negative) Urine Nitrate Positive H (Negative) Urine Bilirubin Negative (Negative) Urine Urobilinogen 1.0 (<2.0) mg/dL Add Ur Microanalysis Reviewed Leukocyte Esterase Rfl 1+ H (Negative) PATTI/UL Urine RBC 6-10 H (0-2) /hpf Urine WBC 21-50 H (0-3) /hpf Ur Squamous Epith Cells Few (Few) /hpf Urine Bacteria 4+ /hpf Urine Casts 3-5 <Cecy Joseph MD - Last Filed: 03/21/25 02:05> Imaging Data Attestation: I personally reviewed and interpreted this imaging study as follows: < Trini Roberts PA-C - Last Filed: 03/21/25 00:06> Radiologist's impression: ITS Impressions Chest X-Ray 03/20/25 18:33 IMPRESSION: Focal, subsegmental atelectasis/consolidation in the left lower lung. Recommend short-term radiographic follow-up to ensure resolution. Head CT 03/20/25 18:59 IMPRESSION: No acute intracranial process. Head/Neck CTA 03/20/25 20:34 IMPRESSION: No large vessel intracranial occlusion, high-grade intracranial stenosis, or aneurysm. No carotid artery occlusion, dissection, or significant stenosis. No vertebral artery occlusion or dissection. 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 <Trini Roberts PA-C - Last Filed: 03/21/25 00:06> ECG Data EKG #1: Attestation: I personally reviewed and interpreted this ECG as follows: <GLENYS Rome Last Filed: 03/21/25 00:06> ECG completion date: 03/20/25 <Trini Roberts PA-C - Last Filed: 03/21/25 00:06> ECG completion time: 18:01 <Trini Roberts PA-C - Last Filed: 03/21/25 00:06> EKG Interpretation: normal rate (63), sinus rhythm and no ST changes <Trini Roberts PA-C - Last Filed: 03/21/25 00:06> Critical Care Time Critical Care Time Critical Care Time: Yes <Cecy Joseph MD - Last Filed: 03/21/25 02:05> Total Critical Care Time: 45 <Cecy Joseph MD - Last Filed: 03/21/25 02:05> Discharge Plan Discharge Clinical Impression: Visual color changes, Generalized weakness, Acute confusion UTI (urinary tract infection) Qualifiers: Urinary tract infection type: acute cystitis Hematuria presence: with hematuria Qualified Code(s): N30.01 - Acute cystitis with hematuria <Trini Roberts PA-C - Last Filed: 03/21/25 00:06> Patient Disposition: Still a Patient <GLENYS Rome Last Filed: 03/21/25 00:06> Condition: Stable <GLENYS Rome Last Filed: 03/21/25 00:06>
--- NOTE | 2025-03-20 19:56 | PC.NURSE ---
Pt to CT at this time.
[2025-03-20] MEDS: cefTRIAXone 1 GM in SODIUM CHLORIDE 0.9% IV 50 ML 100 ML IVPB (21:00)
[2025-03-21] VITALS (8 sets, daily range): BP systolic 126–156; BP diastolic 72–85; PULSE 56–81; RESP 16–20; TEMP 36.8–37; O2SAT 98–100; BMI 26.0
[2025-03-21] MEDS: SODIUM CHLORIDE 0.9% IV 1,000 ML 999 ML IV CONT (00:25)
--- NOTE | 2025-03-21 00:50 | P.HP_ITS ---
H&P: HPI History of Present Illness Date/Time: 03/21/25 00:50 Chief Complaint: Weakness and right-sided cloudy vision Narrative: 84-year-old female with history of hypertension, hyperlipidemia, dementia, GERD, [id number] diabetes mellitus, hypertensive retinopathy, nonproliferative diabetic retinopathy, left eye posterior vitreous detachment, bilateral cataracts status post extraction with intra-ocular lens insertion, presents to [facility] ER on 03/20/2025 with weakness, confusion, white spots and decreased vision on the right visual field. For a few days she has felt weak and a bit more confused than usual. On day of admission she could not grab her walker with her right hand as her vision was obscured. No focal weakness or numbness. No slurred speech, no syncope, dizziness, chest pain, nausea, vomiting, diarrhea, shortness of breath, fever. She also had a left- sided headache a day prior but that resolved. Took Tylenol. She has no history of stroke but takes aspirin and atorvastatin daily. ER examination revealed decreased vision right visual field in the right eye, slightly better in the left eye. No focal deficits otherwise. WBC 7.3, urinalysis cloudy, leukocyte esterase 1+, nitrate positive, 21-50 WBC, few squamous cells. Chest x-ray with subsegmental atelectasis. CT head no acute intracranial process, moderate atrophy and chronic white matter change. CTA head and neck no occlusion, severe left and moderate right vertebral artery origin stenosis. She was given ceftriaxone IV. Case discussed with Dr. Zapata, opthalmology @ [facility]. [place] transfer not necessary for urgent workup. Case discussed with in-house Neurology Dr. Aguilar. Advised MRI and admission. Review of Systems Review of Systems: All systems reviewed & are unremarkable except as noted in HPI and below (Subjective/HPI) [facility] Past Medical History Medical History Diverticulosis Rectal bleeding Black tarry stools Chest pain Sinusitis Lower extremity edema Nausea & vomiting Dementia Mild dementia GERD (gastroesophageal reflux disease) Urge urinary incontinence Essential hypertension Urinary tract infection High cholesterol Glaucoma Diabetes Chicken pox Arthritis Anemia Surgical History Surgical History Status post cataract extraction of both eyes with insertion of intraocular lens Hx of cholecystectomy (~1998) Family History Family History Father , 79 Heart attack Mother , 83 Heart attack Social History Social History Social History: She is and lives at home alone. 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 Smoking status: Former smoker Tobacco type: cigarettes Additional smoking assessment comments: Pt states she smoked for about 9years Alcohol intake: never Substance use: never Substance use type: does not use Do You Feel Safe in your Home?: Yes Lack of Transportation: No Lack of Food: Never True Current Housing: I Have Housing Concerned About Future Housing: No Difficulty Paying Gas/Electric Bills: No Difficulty Paying for Meds: No Currently Unemployed: No Education: Decline to Answer Difficulty w/ Childcare or Family Care: No Living arrangements: assisted living Gender identity (if verbalized by the patient): Female Spiritual care concerns: No Meds Home Medications and Allergies Home Medications ?Medication ?Instructions ?Recorded ?Confirmed ?Type acetaminophen 500 mg tablet 500 mg PO DAILY PRN Pain 09/15/19 12/10/24 History (Tylenol Extra Strength) aspirin 81 mg tablet 81 mg PO DAILY 12/04/20 12/10/24 History calcium carbonate (Antacid 200 mg PO BID PRN Heartburn 12/04/20 12/10/24 History (calcium carbonate)) calcium carbonate 250 mg chewable 250 mg PO DAILY 12/04/20 12/10/24 History tablet carboxymethylcellulose sodium 1 % 1 drp EACH EYE QID 12/04/20 12/10/24 History eye liquid gel drops yremdjlo-vckr-cufd 8 mg-folic 400 1 tablet PO DAILY 12/04/20 12/10/24 History mcg-K 50 mcg-lutein 300 mcg tablet (Centrum Silver Women) blood-glucose sensor (Dexcom G7 #1 ea 06/11/24 12/10/24 Rx Sensor device) oxybutynin chloride 5 mg tablet See Rx Instructions .Route 07/07/24 12/10/24 Rx .COMPLEX #180 tabs donepezil 10 mg tablet See Rx Instructions .Route 07/15/24 12/10/24 Rx .COMPLEX #90 tabs metoprolol succinate 100 mg See Rx Instructions .Route 08/26/24 12/10/24 Rx tablet,extended release 24 hr .COMPLEX #90 tabs potassium chloride 20 mEq See Rx Instructions .Route 08/26/24 12/10/24 Rx tablet,extended release(part/cryst) .COMPLEX #90 tabs amlodipine 5 mg tablet See Rx Instructions .Route 09/25/24 12/10/24 Rx .COMPLEX #90 tabs metformin 1,000 mg tablet See Rx Instructions .Route 11/19/24 12/10/24 Rx .COMPLEX #180 tabs losartan 25 mg tablet 25 mg PO DAILY #90 tabs 12/08/24 12/10/24 Rx atorvastatin 40 mg tablet See Rx Instructions .Route 02/06/25 Rx .COMPLEX #90 tabs Allergies Allergy/AdvReac Type Severity Reaction Status Date / Time codeine Allergy Unknown Unknown Verified 12/10/24 10:10 Vital Signs Vital Signs - 24 hr 03/20/25 16:26 Temperature 97.6 F Pulse Rate 67 Respiratory Rate 18 Blood Pressure 140/69 Pulse Oximetry 99 Oxygen Delivery Room Air Exam Const: General: comfortable and no acute distress Other: A&O x3 HENMT: Mouth: Yes moist mucous membranes Other: Edentulous Eyes: Pupils: Equal, round and reactive pupils present Neck: Neck: supple Resp: Effort & Inspection: normal respiratory effort Auscultation: clear to auscultation bilaterally Cardio: Rate: regular rate Rhythm: regular rhythm GI: GI Palp: Yes Soft to palpation and No Tenderness to palpation present (GI) : General: Yes bladder normal to palpation Neuro: Motor exam (neuro): 5/5 motor strength present throughout Other: As described above. Retinal exam difficult, no papilledema or occlusion identified. Extrem: General: no edema H&P: Results Labs Labs: Short CBC 03/20/25 Range/Units 18:07 WBC 7.3 (4.5-10.0) K/mm3 Hgb 12.6 (12.0-15.0) g/dL Hct 40.4 (37.0-47.0) % Plt Count 276 (150-375) k/mm3 BMP 03/20/25 18:07 Sodium 138 Potassium 3.6 Chloride 105 Carbon Dioxide 25 BUN 16 Creatinine 1.13 H Glucose 153 H Calcium 9.7 Liver Function 03/20/25 Range/Units 18:07 Total Bilirubin 0.7 (0.2-1.3) mg/dL AST 40 H (14-36) U/L ALT 22 (6-35) U/L Alkaline Phosphatase 109 (38-126) U/L Albumin 4.2 (3.5-5.1) g/dL Urine 03/20/25 Range/Units 18:00 Urine Color Yellow (Yellow) Urine Appearance Cloudy H (Clear) Urine pH 5.5 (5.0-9.0) Ur Specific [place] 1.016 (1.001-1.035) Urine Protein 3+ H (Negative) mg/dL Urine Glucose (UA) Negative (Negative) mg/dL Assessment and Plan Assessment and plan (1) HTN (hypertension): Qualifiers: Hypertension type: essential hypertension Qualified Code(s): I10 - Essential (primary) hypertension Code(s): I10 - Essential (primary) hypertension Status: Acute (2) Diabetes mellitus: Qualifiers: Diabetes mellitus type: type 2 Diabetes mellitus intermediate card tender insulin use: without usp use Diabetes mellitus complication status: without complication Qualified Code(s): E11.9 - Type 2 diabetes mellitus without complications Code(s): E11.9 - Type 2 diabetes mellitus without complications Status: Acute (3) Generalized weakness: Code(s): R53.1 - Weakness Status: Acute (4) Vision changes: Code(s): H53.9 - Unspecified visual disturbance Status: Acute Plan 84-year-old female with history of hypertension, hyperlipidemia, dementia, GERD, pat-[id number] diabetes mellitus, hypertensive retinopathy, nonproliferative diabetic retinopathy, left eye posterior vitreous detachment, bilateral cataracts status post extraction with intra-ocular lens insertion, presents to [facility] ER on 03/20/2025 with weakness, confusion, white spots and decreased vision on the right visual field. For a few days she has felt weak and a bit more confused than usual. On day of admission she could not grab her walker with her right hand as her vision was obscured. No focal weakness or numbness. No slurred speech, no syncope, dizziness, chest pain, nausea, vomiting, diarrhea, shortness of breath, fever. She also had a left- sided headache a day prior but that resolved. Took Tylenol. She has no history of stroke but takes aspirin and atorvastatin daily. ER examination revealed decreased vision right visual field in the right eye, slightly better in the left eye. No focal deficits otherwise. WBC 7.3, urinalysis cloudy, leukocyte esterase 1+, nitrate positive, 21-50 WBC, few squamous cells. Chest x-ray with subsegmental atelectasis. CT head no acute intracranial process, moderate atrophy and chronic white matter change. CTA head and neck no occlusion, severe left and moderate right vertebral artery origin stenosis. She was given ceftriaxone IV. Case discussed with Dr. Zapata, opthalmology @ [facility]. [place] transfer not necessary for urgent workup. Case discussed with in-house Neurology Dr. Aguilar. Advised MRI and admission. ----- Pending MRI brain brainstem with and without contrast. Neurology consultation. Load with aspirin, continue aspirin 81 mg p.o. daily and atorvastatin. Neurochecks, fall precaution, ambulate with assistance, PTOT. Check lipid panel, hemoglobin A1c. Accu-Cheks a.c. HS with insulin sliding scale, low-dose. Patient wished to be full code. Diabetic diet. Heparin subQ 5000 units b.i.d.. Patient lives alone at home, has family assistance. Uses walker at baseline. Hospitalist [facility] Advance Care Plan I have confirmed that the patient's Advanced Care Plan is present, code status is documented, or surrogate decision maker is listed in patient medical record.: Yes Medication Reconciliation I have utilized all available resources to obtain, update and review the patients current medications (includes all prescriptions, OTC, herbals, cannabis, and nutritional supplements).: Yes
--- NOTE | 2025-03-21 01:04 | ADMGEN ---
This patient, Luna Conner, was admitted to Medical Room 346-01. Patient/family oriented to hospital policies and general routines including ID bracelet, bed and alarms, visiting hours, pain management, procedures, bathroom and other care routines, personal items, smoking policy, room service/diet, and visiting hours. Information on how to activate the Rapid Response Team has been discussed. Patient/Family are encouraged to report perceived risks to care and to ask questions if they do not understand what they are told or what they should do.
[2025-03-21] MEDS: ASPIRIN 81 MG CHEWABLE TABLET 324 MG PO (01:59)
[2025-03-21 05:54] LABS: Hematocrit 37.6 % (37.0-47.0); Hemoglobin 11.9 g/dL (12.0-15.0); Immature Granulocyte Percent A 0.2 % (0-0.5); Lymphocytes Absolute Auto 1.35 K/mm3 (0.9-3.2); Mean Corpuscular HGB Conc 31.6 g/dl (32-36); Mean Corpuscular Hemoglobin 26.3 pg (26-34); Mean Corpuscular Volume 83.0 fl (80-100); Nucleated Red Blood Cells Absolute Auto 0.000 K/mm3 (0.0-0.012); Nucleated Red Blood Cells Perc 0.0 % (0.0-0.2); Platelet Count Result 252 k/mm3 (150-375); Red Blood Count 4.53 M/mm3 (4.2-5.4); White Blood Count 6.6 K/mm3 (4.5-10.0)
[2025-03-21 06:27] LABS: Anion Gap 7 mmol/L (4-12); Blood Urea Nitrogen 10 mg/dL (7-17); Calcium 9.1 mg/dL (8.4-10.2); Carbon Dioxide 25 mmol/L (22-30); Chloride 104 mmol/L (98-107); Cholesterol 134 mg/dL (0-200); Estimated CRCL calculation 38 ml/min; Estimated Glomerular Filt Rate > 60; Glucose 120 mg/dL (65-110); HDL Direct 60 mg/dL; Magnesium 1.3 mg/dL (1.6-2.3); Potassium 3.1 mmol/L (3.4-5.0); Sodium 136 mmol/L (137-145); Triglycerides 80 mg/dL (<150)
[2025-03-21 07:37] LABS: Hemoglobin A1C 7.0 % (<5.7)
[2025-03-21] MEDS: DONEPEZIL HCL 10 MG TABLET BY MOUTH (08:32)
[2025-03-21] MEDS: ATORVASTATIN 40 MG TABLET BY MOUTH (08:32)
[2025-03-21] MEDS: LOSARTAN POTASSIUM 25 MG TABLET PO (08:53)
[2025-03-21] MEDS: POTASSIUM CHLORIDE 20 MEQ PACKET (FOR LIQUID) 40 MEQ PO (08:54)
[2025-03-21] MEDS: MAGNESIUM SULF 2 GM/WATER 50ML 2 GM/50 ML BAG IVPB (09:05)
--- NOTE | 2025-03-21 14:15 | P.PNCROSS_ITS ---
Event Note Event Note Event Note: patient is an 84-year-old female who had been seen and assessed by previous freddy duran same day I followed up with patient for assessment she was in no acute distress and no neuro deficits noted at time of visit daughter was at bedside and updated pending MRI results following assessment, MRI was completed that showed moderate sized subacute infarct with secondary gain will enhancement and some associated petechial hemorrhage in the left occipital lobe and A couple additional small foci of susceptibility artifact consistent with chronic microhemorrhage at the right occipital lobe and right thalamus. neurology has been consulted for further recommendations currently continuing with ASA and atorvastatin. echocardiogram pending to rule out any shunting, patient with mild hypokalemia and hypo magnesium which were both replenish and continued with IV Rocephin to treat urinary tract infection pending cultures. patient with no difficulty tolerating oral intake but PT/OT have been ordered for evaluation post CVA and possible discharge needs.
--- NOTE | 2025-03-21 15:27 | WPDNEURCNPN ---
Assessment and Plan Assessment and plan (1) Acute left [employer] stroke: Code(s): I63.532 - Cerebral infarction due to unspecified occlusion or stenosis of left posterior cerebral artery Status: Acute Assessment and Plan: patient has right homonymous hemianopsia. She also has some loss of rapid alternating movement of the right hand compared to the left side however the findings fairly subtle. The patient is currently on aspirin 81 mg a day and atorvastatin 40 mg a day and I would suggest to add Plavix or clopidogrel 75 mg daily for at least 3 months. That she can go on to single anti-platelet agent. I have given her my phone number for follow-up office in view of the stroke. Last LDL earlier this year was less than 65. Hence we can continue the current dose of atorvastatin 40 mg a day. Also attention to the blood pressure and blood glucose and lipid profile is recommended. (2) Diabetes mellitus: Qualifiers: Diabetes mellitus type: type 2 Diabetes mellitus group home insulin use: without group home use Diabetes mellitus complication status: without complication Qualified Code(s): E11.9 - Type 2 diabetes mellitus without complications Code(s): E11.9 - Type 2 diabetes mellitus without complications Status: Acute Plan The patient does not drive. I had discussion with the patient's daughter also on explained to her about the finding. Patient will need to be on antiplatelets and statins and work with the physical therapist particularly since he lives by herself. She may also any occupational therapist to evaluate her. The risk of her falling because of the hemianopia and the safety precautions also very important. Consult date: 03/21/25 HPI: Luna Conner is a 84 year old female With history of diabetes mellitus since her 30s presented to the hospital with some visual difficulties. Emergency room physician explained to me that she was having some difficulty with the right field of vision. CT angiogram head was performed and that shows a severe stenosis the left vertebral artery and moderate stenosis the right vertebral artery. CT scan of brain did not show any significant abnormalities. Patient also has had some headache and dizziness. Patient lives by herself. Her daughter is close to her and she is in fact was here at the time of this visit also. Patient denies any weakness in upper lower limbs however she still has some sense of imbalance while trying to go to the bathroom. No passing out spell. No history of previous stroke-like symptoms. Review of Systems Review of Systems: All systems reviewed & are unremarkable except as noted in HPI and below PMFSH Past Medical History Medical History (Updated 03/21/25 @ 15:32 by Hector Aguilar MD) Acute left [employer]OM[employer] stroke Diverticulosis Rectal bleeding Black tarry stools Chest pain Sinusitis Lower extremity edema Nausea & vomiting Dementia Mild dementia GERD (gastroesophageal reflux disease) Urge urinary incontinence Essential hypertension Urinary tract infection High cholesterol Glaucoma Diabetes Chicken pox Arthritis Anemia Surgical History Surgical History Status post cataract extraction of both eyes with insertion of intraocular lens Hx of cholecystectomy (~1998) Family History Family History Father , 79 Heart attack Mother , 83 Heart attack Social History Social History Social History: She is and lives at home alone. 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 Smoking status: Former smoker Tobacco type: cigarettes Additional smoking assessment comments: Pt states she smoked for about 9years Alcohol intake: never Substance use: never Substance use type: does not use Do You Feel Safe in your Home?: Yes Lack of Transportation: No Lack of Food: Never True Current Housing: I Have Housing Concerned About Future Housing: No Difficulty Paying Gas/Electric Bills: No Difficulty Paying for Meds: No Currently Unemployed: No Education: Decline to Answer Difficulty w/ Childcare or Family Care: No Living arrangements: assisted living Gender identity (if verbalized by the patient): Female Spiritual care concerns: No Meds Home Medications and Allergies Home Medications ?Medication ?Instructions ?Recorded ?Confirmed ?Type acetaminophen 500 mg tablet 500 mg PO DAILY PRN Pain 09/15/19 03/21/25 History (Tylenol Extra Strength) aspirin 81 mg tablet 81 mg PO DAILY 12/04/20 03/21/25 History calcium carbonate (Antacid 200 mg PO BID PRN Heartburn 12/04/20 03/21/25 History (calcium carbonate)) qrutjcsm-gxjt-orma 8 mg-folic 400 1 tablet PO DAILY 12/04/20 03/21/25 History mcg-K 50 mcg-lutein 300 mcg tablet (Centrum Silver Women) blood-glucose sensor (DexBookNow G7 #1 ea 06/11/24 03/21/25 Rx Sensor device) oxybutynin chloride 5 mg tablet See Rx Instructions .Route 07/07/24 03/21/25 Rx .COMPLEX #180 tabs donepezil 10 mg tablet See Rx Instructions .Route 07/15/24 03/21/25 Rx .COMPLEX #90 tabs metoprolol succinate 100 mg See Rx Instructions .Route 08/26/24 03/21/25 Rx tablet,extended release 24 hr .COMPLEX #90 tabs potassium chloride 20 mEq See Rx Instructions .Route 08/26/24 03/21/25 Rx tablet,extended release(part/cryst) .COMPLEX #90 tabs amlodipine 5 mg tablet See Rx Instructions .Route 09/25/24 03/21/25 Rx .COMPLEX #90 tabs metformin 1,000 mg tablet See Rx Instructions .Route 11/19/24 03/21/25 Rx .COMPLEX #180 tabs losartan 25 mg tablet 25 mg PO DAILY #90 tabs 12/08/24 03/21/25 Rx atorvastatin 40 mg tablet See Rx Instructions .Route 02/06/25 03/21/25 Rx .COMPLEX #90 tabs Allergies Allergy/AdvReac Type Severity Reaction Status Date / Time codeine Allergy Unknown Unknown Verified 03/21/25 01:47 Vital Signs Vital Signs - 24 hr 03/20/25 16:26 03/21/25 04:00 03/21/25 05:24 Temperature 97.6 F 98.6 F Pulse Rate 67 56 L 56 L Respiratory Rate 18 16 Blood Pressure 140/69 156/85 H Pulse Oximetry 99 100 Oxygen Delivery Room Air 03/21/25 08:30 03/21/25 08:30 03/21/25 11:49 Temperature Pulse Rate 58 L 70 Respiratory Rate Blood Pressure Pulse Oximetry Oxygen Delivery Room Air 03/21/25 14:38 Temperature Pulse Rate Respiratory Rate Blood Pressure Pulse Oximetry Oxygen Delivery Room Air Exam Const: General: cooperative, well developed and alert Orientation/consciousness: oriented to person, oriented to place and oriented to time HENMT: Head: atraumatic Mouth: Yes oropharynx normal Eyes: Alignment and Position: position normal Pupils: Equal, round and reactive pupils present EOM: EOMs intact bilaterally Other: Right homonymous hemianopsia was noted on bedside visual field Evaluation. Neck: Neck: supple Resp: Effort & Inspection: normal respiratory effort Cardio: Rate: regular rate Rhythm: regular rhythm Skin: General skin exam: normal color Neuro: General: Unable to assess gait Cranial nerves: Yes CN's II-XII intact bilaterally ( Except for right homonymous hemianopsia), Yes facial sensation intact/muscles of mastication intact, Yes Equal, round and reactive pupils present, Yes Bilaterally intact EOM present, Yes Nystagmus not present, Yes facial symmetry, Yes Midline tongue present, Yes Symmetric palate elevation present and Yes Ability to bilaterally elevate shoulders present Cognition (Neuro): normal cognition Speech: normal speech Motor exam (neuro): 5/5 motor strength present throughout, Motor fasciculations not present, Normal motor muscle tone present throughout and Motor abnormalities not present Sensory Exam: normal sensation Coordination: wwgxps-af-jrty test normal Other: rapid alternating movement of the right hand appears slightly less than the left side however no changes on the right foot compared to the left side. Normal strength throughout in all 4 limbs was noted at this time. No involuntary movements are seen. Results Labs 03/21/25 05:34 03/21/25 05:34 Labs: Short CBC 03/20/25 03/21/25 Range/Units 18:07 05:34 WBC 7.3 6.6 (4.5-10.0) K/mm3 Hgb 12.6 11.9 L (12.0-15.0) g/dL Hct 40.4 37.6 (37.0-47.0) % Plt Count 276 252 (150-375) k/mm3 BMP 03/20/25 03/21/25 18:07 05:34 Sodium 138 136 L Potassium 3.6 3.1 L Chloride 105 104 Carbon Dioxide 25 25 BUN 16 10 D Creatinine 1.13 H 0.73 Glucose 153 H 120 H Calcium 9.7 9.1 XAMINATION: MR brain/brain stem wo/w con DATE: 03/21/2025 12:33 INDICATION: Weakness, confusion and right eye vision changes TECHNIQUE: Magnetic resonance imaging (MRI) of the brain and brainstem was performed without and with 13 mL Multihance intravenous contrast. Sequences included sagittal and axial T1-weighted SE, axial diffusion-weighted FS SE, , axial T2-weighted FLAIR, and axial T2-weighted FSE. Postcontrast axial, sagittal and coronal T1-weighted FSE was obtained. Apparent diffusion coefficient (ADC) maps were created. COMPARISON: None. FINDINGS: Moderate-sized region of restricted diffusion with associated cytotoxic edema with increased T2 signal an post fall defect the brain at the left occipital lobe consistent with acute to early subacute infarct. Within this region there is some thin serpiginous gyral enhancement consistent with secondary luxury perfusion in favoring an early subacute chronicity. Also within this region are 2 collections of multiple small foci of susceptibility artifact consistent with secondary petechial hemorrhage. There are a couple additional small foci of susceptibility artifact in the right occipital lobe and right thalamus consistent with additional chronic microhemorrhage, typically seen in the setting of hypertension. No abnormal intracranial mass lesion. There are multiple scattered small foci of nonspecific increased T2-weighted signal intensity in the cerebral white matter, predominantly involving the deep and periventricular white matter. There are no intraparenchymal signal abnormalities seen on the other pulse sequences. The ventricles are symmetric and normal in size. There are no abnormal extra-axial fluid collections. Flow voids are seen in the cerebral arteries on the T2-weighted sequences consistent with their expected patency. Visualized orbits and soft tissues are unremarkable. IMPRESSION: 1. Moderate-sized likely early subacute infarct with secondary gyral enhancement and some associated petechial hemorrhage in the left occipital lobe. 2. Additional mild scattered mesenteric white matter T2 hyperintensity consistent with chronic small vessel ischemic disease. 3. A couple additional small foci of susceptibility artifact consistent with chronic microhemorrhage at the right occipital lobe and right thalamus. Reviewed, dictated and finalized at location A. Liver Function 03/20/25 Range/Units 18:07 Total Bilirubin 0.7 (0.2-1.3) mg/dL AST 40 H (14-36) U/L ALT 22 (6-35) U/L Alkaline Phosphatase 109 (38-126) U/L Albumin 4.2 (3.5-5.1) g/dL Urine 03/20/25 Range/Units 18:00 Urine Color Yellow (Yellow) Urine Appearance Cloudy H (Clear) Urine pH 5.5 (5.0-9.0) Ur Specific [place] 1.016 (1.001-1.035) Urine Protein 3+ H (Negative) mg/dL Urine Glucose (UA) Negative (Negative) mg/dL Imaging Attestation: I personally reviewed and interpreted this imaging study as follows: ( MRI of the brain and CT angiogram head and neck.) My impression: MRI of the brain shows infarct in the left occipital area most likely in the left posterior cerebral artery distribution. CT angiogram shows moderate to severe narrowing of the vertebral arteries left more than right.
[2025-03-21 16:23] LABS: Hemoglobin A1C 7.0 % (<5.7)
[2025-03-21 16:50] LABS: Cholesterol 154 mg/dL (0-200); HDL Direct 71 mg/dL; Triglycerides 99 mg/dL (<150)
[2025-03-21 17:26] LABS: Thyroid Stimulating Hormone 1.260 uIU/mL (0.465-4.680)
[2025-03-21] MEDS: INSULIN ASPART (*BKC) 100 UNITS/ML SUB-Q (17:50)
[2025-03-21 18:15] LABS: Vitamin B12 > 1000.0 pg/mL (239-931)
[2025-03-21] MEDS: cefTRIAXone 1 GM in SODIUM CHLORIDE 0.9% IV 50 ML 100 ML IVPB (20:08)
[2025-03-22] VITALS (9 sets, daily range): BP systolic 118–144; BP diastolic 68–77; PULSE 62–79; RESP 14–18; TEMP 36.7–36.8; O2SAT 98–100
[2025-03-22 05:52] LABS: Hematocrit 43.2 % (37.0-47.0); Hemoglobin 13.0 g/dL (12.0-15.0); Mean Corpuscular HGB Conc 30.1 g/dl (32-36); Mean Corpuscular Hemoglobin 26.1 pg (26-34); Mean Corpuscular Volume 86.7 fl (80-100); Platelet Count Result 249 k/mm3 (150-375); Red Blood Count 4.98 M/mm3 (4.2-5.4); White Blood Count 5.4 K/mm3 (4.5-10.0)
[2025-03-22 06:14] LABS: Alanine Aminotransferase 17 U/L (6-35); Albumin Level 3.8 g/dL (3.5-5.1); Alkaline Phosphatase 107 U/L (38-126); Anion Gap 6 mmol/L (4-12); Aspartate Amino Transferase 38 U/L (14-36); Bilirubin,Total 0.8 mg/dL (0.2-1.3); Blood Urea Nitrogen 9 mg/dL (7-17); Calcium 9.3 mg/dL (8.4-10.2); Carbon Dioxide 22 mmol/L (22-30); Chloride 104 mmol/L (98-107); Estimated CRCL calculation 31 ml/min; Estimated Glomerular Filt Rate 60; Glucose 122 mg/dL (65-110); Potassium 3.8 mmol/L (3.4-5.0); Sodium 132 mmol/L (137-145); Total Protein 7.1 g/dL (6.3-8.2)
[2025-03-22] MEDS: LOSARTAN POTASSIUM 25 MG TABLET PO (08:55)
[2025-03-22] MEDS: POTASSIUM CHLORIDE 20 MEQ PACKET (FOR LIQUID) 40 MEQ PO (08:55)
[2025-03-22] MEDS: ASPIRIN 81 MG ENTERIC TABLET PO (08:55)
[2025-03-22] MEDS: DONEPEZIL HCL 10 MG TABLET BY MOUTH (08:55)
[2025-03-22] MEDS: ATORVASTATIN 40 MG TABLET BY MOUTH (08:55)
--- NOTE | 2025-03-22 10:49 | P.PNIM_ITS ---
Progress Note: A&P Assessment and Plan (1) Acute left CLIENT COORDINATOR stroke: Code(s): I63.532 - Cerebral infarction due to unspecified occlusion or stenosis of left posterior cerebral artery Status: Acute Assessment and Plan: patient presented to the emergency department with worsening weakness and worsening visual problems * neurology consulted * MRI: Moderate-sized likely early subacute infarct with secondary gyral enhancement and some associated petechial hemorrhage in the left occipital lobe. * CTA with no stenosis * continue ASA, atorvastatin started on Plavix 75 daily x3 months stool antiplatelet therapy per Neurology recommendations * PT/OT recommending acute inpatient rehab * echocardiogram pending (2) HTN (hypertension): Qualifiers: Hypertension type: essential hypertension Qualified Code(s): I10 - Essential (primary) hypertension Code(s): I10 - Essential (primary) hypertension Status: Acute Assessment and Plan: * continue patient's losartan metoprolol, and amlodipine * monitor BP per unit protocol (3) UTI (urinary tract infection): Qualifiers: Hematuria presence: with hematuria Urinary tract infection type: acute cystitis Qualified Code(s): N30.01 - Acute cystitis with hematuria Code(s): N39.0 - Urinary tract infection, site not specified Status: Acute Assessment and Plan: UA on arrival suspicious for urinary tract infection, last attainable UA was with E coli pansensitive back in 2020 * IV Rocephin pending cultures (4) Diabetes mellitus: Qualifiers: Diabetes mellitus complication status: without complication Diabetes mellitus nursing home insulin use: without nursing home use Diabetes mellitus type: type 2 Qualified Code(s): E11.9 - Type 2 diabetes mellitus without complications Code(s): E11.9 - Type 2 diabetes mellitus without complications Status: Acute Assessment and Plan: * holding patient's metformin * low-dose SSI * Accu-Cheks a.c. HS * hypoglycemia protocol * diabetic diet * A1c 7.0/ follow-up A1c times 3-6 months (5) Generalized weakness: Code(s): R53.1 - Weakness Status: Acute Assessment and Plan: generalized weakness likely secondary to urinary tract infection and new subacute CVA * PT/ OT recommending acute inpatient rehab * care coordination sent referrals to [facility] (6) Vision changes: Code(s): H53.9 - Unspecified visual disturbance Status: Acute Assessment and Plan: CT angiogram head was performed and that shows a severe stenosis the left verteb ral artery and moderate stenosis the right vertebral artery. ED had spoke with Dr. Zapata, opthalmology @ [facility]. [place] transfer not necessary for urgent workup * MRI performed showing A couple additional small foci of susceptibility artifact consistent with chronic microhemorrhage at the right occipital lobe and right thalamus,Moderate-sized likely early subacute infarct with secondary gyral enhancement and some associated petechial hemorrhage in the left occipital lobe. * Follow-up outpatient Plan Code status: Full code per patient DVT prophylaxis: Heparin Stress ulcer prophylaxis: Na PT/OT notes: PT/OT recommends inpatient rehab Disposition: patient continues admission to the medical unit for further evaluation and treatment subacute CVA and urinary tract infection with generalized weakness patient worked with PT /OT who are recommending inpatient rehab referrals have been sent to [facility] from . Time Spent With Patient Time with patient: 15 - 25 minutes Subjective Date/time seen: 03/22/25 10:49 Interval history: Patient is an 84-year-old female who was admitted for further evaluation of weakness and right-sided cloudy vision she was found to have a new subacute infarction 03/22/2025: Patient resting comfortably in no acute distress, still reporting visual concerns but unchanged from admission. Review of Systems Review of Systems: All systems reviewed & are unremarkable except as noted in HPI and below (Subjective/HPI) Exam Const: General: comfortable and no acute distress Other: A&O x3 HENMT: Mouth: Yes moist mucous membranes Other: Edentulous Eyes: Pupils: Equal, round and reactive pupils present Neck: Neck: supple Resp: Effort & Inspection: normal respiratory effort Auscultation: clear to auscultation bilaterally Cardio: Rate: regular rate Rhythm: regular rhythm : General: Yes bladder normal to palpation Bimanual exam- vagina & uterus: bladder normal to palpation Skin: General skin exam: normal color and no rashes or lesions noted Wounds: wounds noted Neuro: Cranial nerves: Yes Equal, round and reactive pupils present Motor exam (neuro): 5/5 motor strength present throughout Extrem: General: normal to inspection and no edema Psych: Affect: normal affect Objective Data Vital Signs Vital Signs: Vital Signs - 24 hr 03/21/25 11:49 03/21/25 14:00 03/21/25 14:38 Temperature 98.5 F Pulse Rate 70 74 Respiratory Rate 20 Blood Pressure 133/81 Pulse Oximetry 100 Oxygen Delivery Room Air 03/21/25 16:00 03/21/25 20:00 03/21/25 22:00 Temperature 98.3 F Pulse Rate 81 64 68 Respiratory Rate 16 Blood Pressure 126/72 Pulse Oximetry 98 Oxygen Delivery 03/22/25 00:00 03/22/25 04:00 03/22/25 05:22 Temperature 98.1 F Pulse Rate 63 62 63 Respiratory Rate 14 Blood Pressure 144/73 H Pulse Oximetry 100 Oxygen Delivery 03/22/25 09:02 03/22/25 09:02 Temperature Pulse Rate 63 Respiratory Rate Blood Pressure Pulse Oximetry Oxygen Delivery Room Air Intake/Output Intake/Output: Intake & Output 03/19/25 03/20/25 03/21/25 03/22/25 23:59 23:59 23:59 23:59 Intake Total 50 2340 240 Output Total 600 Balance 50 2340 -360 Meds/Results Medications: Active Medications Generic Name Dose Route Start Last Admin Trade Name Freq PRN Reason Stop Dose Admin Acetaminophen 650 mg 03/20/25 23:21 Acetaminophen 325 Mg Tablet PO Q4H PRN Mild Pain (1-3) or Fever Amlodipine Besylate 5 mg 03/21/25 09:00 03/22/25 08:55 Amlodipine Besylate 5 Mg Tablet PO 5 mg DAILY ARTURO Administration Aspirin 81 mg 03/22/25 09:00 03/22/25 08:55 Aspirin 81 Mg Enteric Tablet PO 81 mg QAM ARTURO Administration Atorvastatin Calcium 40 mg 03/21/25 09:00 03/22/25 08:55 Atorvastatin 40 Mg Tablet BY MOUTH 40 mg DAILY ARTURO Administration Clopidogrel Bisulfate 75 mg 03/22/25 10:45 Clopidogrel Bisulfate 75 Mg Tablet PO QAM ARTURO Dextrose 12.5 gm 03/21/25 00:46 Dextrose 50% 25 Gm/50 Ml Syringe IV PUSH PRN PRN Hypoglycemia Protocol Donepezil HCl 10 mg 03/21/25 09:00 03/22/25 08:55 Donepezil Hcl 10 Mg Tablet BY MOUTH 10 mg DAILY ARTURO Administration Glucagon 1 mg 03/20/25 23:21 Glucagon For Inj 1 Mg Vial IM PRN PRN Hypoglycemia Protocol Glucose 15 gm 03/21/25 00:46 Glucose Oral Gel 15 Gm Of Glucse In 37.5 Gm Tube PO PRN PRN Hypoglycemia Protocol Heparin Sodium (Porcine) 5,000 units 03/21/25 00:50 03/22/25 08:55 Heparin Sodium 5,000 Units/Ml Vial SUB-Q 5,000 units Q12HR ARTURO Administration Ceftriaxone Sodium 1 gm/ 50 mls @ 100 mls/hr 03/21/25 21:00 03/21/25 20:38 Sodium Chloride IVPB Infused Q24H ARTURO Infusion Dextrose 1,000 mls @ 100 mls/hr 03/21/25 00:46 Dextrose 5% 1,000 Ml IVPB PRN PRN Hypoglycemia Protocol Insulin Aspart 2 - 5 units 03/21/25 08:00 03/22/25 08:45 Insulin Aspart (*Bkc) 100 Units/Ml SUB-Q Not Given TIDWM ARTURO Protocol Insulin Aspart 1 - 2 units 03/21/25 21:00 03/21/25 20:10 Insulin Aspart (*Bkc) 100 Units/Ml SUB-Q Not Given HS ARTURO Protocol Losartan Potassium 25 mg 03/21/25 09:00 03/22/25 08:55 Losartan Potassium 25 Mg Tablet PO 25 mg DAILY ARTURO Administration Oxybutynin Chloride 5 mg 03/21/25 09:00 03/22/25 08:55 Oxybutynin Chloride 5 Mg Tablet PO 5 mg BID ARTURO Administration Perflutren Lipid Microsphere 0 ml 03/21/25 14:18 Perflutren Lipid Microspheres 1.5 Ml Vial Diluted To 10 Ml Total Volume IV PUSH 03/24/25 14:18 ONCE PRN adequate visualization Protocol Potassium Chloride 40 meq 03/21/25 09:00 03/22/25 08:55 Potassium Chloride 20 Meq Packet (For Liquid) PO 40 meq DAILY ARTURO Administration Radiology Results: ITS Impressions Chest X-Ray 03/20/25 18:33 IMPRESSION: Focal, subsegmental atelectasis/consolidation in the left lower lung. Recommend short-term radiographic follow-up to ensure resolution. Head CT 03/20/25 18:59 IMPRESSION: No acute intracranial process. Head/Neck CTA 03/20/25 20:34 IMPRESSION: No large vessel intracranial occlusion, high-grade intracranial stenosis, or a neurysm. No carotid artery occlusion, dissection, or significant stenosis. No vertebral artery occlusion or dissection. 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 Brain MRI 03/21/25 12:43 IMPRESSION: 1. Moderate-sized likely early subacute infarct with secondary gyral enhancement and some associated petechial hemorrhage in the left occipital lobe. 2. Additional mild scattered mesenteric white matter T2 hyperintensity consistent with chronic small vessel ischemic disease. 3. A couple additional small foci of susceptibility artifact consistent with chronic microhemorrhage at the right occipital lobe and right thalamus. Labs Labs: Laboratory Results - last 24 hr 03/21/25 03/21/25 03/21/25 16:05 17:27 20:10 WBC RBC Hgb Hct MCV MCH MCHC RDW Plt Count MPV Sodium Potassium Chloride Carbon Dioxide Anion Gap BUN Creatinine Estim Creat Clear Calc Estimated GFR Glucose POC Capillary Glucose 219 H 195 H Hemoglobin A1c 7.0 H Calcium Total Bilirubin AST ALT Alkaline Phosphatase Total Protein Albumin Triglycerides 99 Cholesterol 154 LDL Cholesterol Direct 45 HDL Direct 71 Vitamin B12 > 1000.0 H Vitamin D 25-Hydroxy 39.9 Folate > 20.0 H TSH 1.260 03/22/25 03/22/25 05:32 08:39 WBC 5.4 RBC 4.98 Hgb 13.0 Hct 43.2 MCV 86.7 MCH 26.1 MCHC 30.1 L RDW 15.5 H Plt Count 249 MPV 10.5 H Sodium 132 L Potassium 3.8 Chloride 104 Carbon Dioxide 22 Anion Gap 6 BUN 9 Creatinine 0.89 Estim Creat Clear Calc 31 Estimated GFR 60 Glucose 122 H POC Capillary Glucose 140 H Hemoglobin A1c Calcium 9.3 Total Bilirubin 0.8 AST 38 H ALT 17 Alkaline Phosphatase 107 Total Protein 7.1 Albumin 3.8 Triglycerides Cholesterol LDL Cholesterol Direct HDL Direct Vitamin B12 Vitamin D 25-Hydroxy Folate TSH Quality VTE Prophylaxis VTE prophylaxis: pharmacologic ordered -Patient's previous records reviewed on admission -ER notes reviewed in detail on admission -discussed all findings and current treatment plan with patient/Family/POA -Consultations reviewed for recommendations -Patient's disposition for safe discharge discussed with case aide Dictation performed by [employer], a [employer] direct speech recognition software, therefore embroiderer hand variants and typographical errors may occur. Hospitalist MIPS Advance Care Plan I have confirmed that the patient's Advanced Care Plan is present, code status is documented, or surrogate decision maker is listed in patient medical record.: Yes Medication Reconciliation I have utilized all available resources to obtain, update and review the patients current medications (includes all prescriptions, OTC, herbals, cannabis, and nutritional supplements).: Yes The patient is not eligible for med reconciliation; the patient is in a emergent medical situation where delaying treatment would jeopardize the patients health.: No
[2025-03-22] MEDS: INSULIN ASPART (*BKC) 100 UNITS/ML SUB-Q (12:20)
[2025-03-22] MEDS: CLOPIDOGREL BISULFATE 75 MG TABLET PO (12:20)
[2025-03-22] MEDS: cefTRIAXone 1 GM in SODIUM CHLORIDE 0.9% IV 50 ML 100 ML IVPB (20:14)
[2025-03-23] VITALS (10 sets, daily range): BP systolic 123–134; BP diastolic 56–72; PULSE 62–99; RESP 16–18; TEMP 36.3–37; O2SAT 94–99
--- NOTE | 2025-03-23 | ECHO_ITS ---
Patient Info Name: Luna Conner Age: 84 years : 1940 Gender: Female Ht: 62 in Wt: 142 lbs BSA: 1.69 m2 HR: 69 bpm BP: 130 / 77 mmHg Technical Quality: Good Exam Date: 03/23/2025 1:35 PM Patient Status: I Admit Date: 03/21/2025 Exam Type: CA echo doppler w bubble study Staff Referring Physician: Trini Roberts Junior Database Administrator: Elizabeth Lomax Attending Provider: Nikia Haider Contrast/Agitated Saline Contrast/Ag. Saline: Agitated Saline Amount: 20.00 ml Existing IV Access: Yes IV Access Condition: patent with no signs of infiltration Summary 1. Left ventricular chamber dimension is normal. 2. Left ventricular systolic function is normal, estimated at 60-65. 3. There is moderate concentric increased left ventricular wall thickness. 4. The left ventricular diastolic function is grade I diastolic dysfunction. 5. E/e' 10 is mildly elevated. 6. Left atrial chamber dimension is moderately enlarged. 7. The aortic valve is not well visualized. Cannot determine number of aortic valve leaflets. 8. There is severe aortic valve sclerosis. 9. There is moderate aortic valve stenosis with a peak velocity of 264 cm/s, mean gradient of 17 mmHg, and aortic valve area of 1.1 cm2. 10. There is mild mitral valve regurgitation. 11. There is trace tricuspid valve regurgitation. 12. Mild pulmonary hypertension, estimated pulmonary arterial systolic pressure is 42 mmHg. 13. There is trace pulmonic regurgitation. Left Ventricle Left ventricular chamber dimension is normal. Left ventricular systolic function is normal, estimated at 60-65. There is moderate concentric increased left ventricular wall thickness. The left ventricular diastolic function is grade I diastolic dysfunction. E/e' 10 is mildly elevated. Right Ventricle Right ventricular chamber dimension is normal. Right ventricular systolic function is normal and with normal TAPSE 2.7 cm. Left Atria Left atrial chamber dimension is moderately enlarged. Right Atria Right atrial chamber dimension is normal. Atrial Septum Intact interatrial septum visualized by 2D and agitated saline imaging. Agitated saline injection with and without valsalva maneuver opacified right side cardiac chambers without shunt to left side cardiac chambers. Aortic Valve The aortic valve is not well visualized. Cannot determine number of aortic valve leaflets. There is severe aortic valve sclerosis. There is moderate aortic valve stenosis with a peak velocity of 264 cm/s, mean gradient of 17 mmHg, and aortic valve area of 1.1 cm2. There is no aortic valve regurgitation. Pulmonic Valve There is trace pulmonic regurgitation. Mitral Valve There is no mitral valve stenosis. There is mild mitral valve regurgitation. Tricuspid Valve There is trace tricuspid valve regurgitation. Mild pulmonary hypertension, estimated pulmonary arterial systolic pressure is 42 mmHg. Pericardium/Pleural There is no pericardial effusion. Inferior Vena Cava Normal inferior vena cava with >50% collapse upon inspiration consistent with normal right atrial pressure, 5 mmHg. Aorta The aortic root size at the sinus of Valsalva is normal. Left Ventricular Outflow Tract Name Value Normal LVOT 2D LVOT Diameter 1.9 cm LVOT Doppler LVOT Peak Velocity 103 cm/s LVOT Peak Gradient 3 mmHg LVOT Mean Gradient 2 mmHg LVOT VTI 23 cm LVOT VTI/AV VTI Ratio 0.4 LVOT Stroke Volume 65 ml LVOT CO 3.7 l/min LVOT CI 2.2 l/min/m2 Pulmonic Valve Name Value Normal RVOT Doppler RVOT Peak Velocity 90 cm/s RVOT Peak Gradient 3 mmHg PV Doppler PV Peak Velocity 109 cm/s PV Peak Gradient 5 mmHg Mitral Valve Name Value Normal MV Diastolic Function MV E Peak Velocity 56 cm/s MV A Peak Velocity 67 cm/s MV E/A 0.8 MV Decel Time (PW) 249 ms Tricuspid Valve Name Value Normal TV Regurgitation Doppler TR Peak Velocity 304 cm/s TR Peak Gradient 37 mmHg Estimated PAP/RSVP RA Pressure 5 mmHg <=5 PA Systolic Pressure 42 mmHg <36 RV Systolic Pressure 42 mmHg <36 TV Annular TDI TV Lateral [place] s' Velocity 15.5 cm/s >=9.5 Aorta Name Value Normal Ascending Aorta Ao Root Diameter (MM) 2.4 cm Ao Root Diam Index (MM) 1.4 cm/m2 Aortic Valve Name Value Normal AV Doppler AV Peak Velocity 264 cm/s AV Peak Gradient 28 mmHg AV Mean Gradient 17 mmHg AV VTI 62 cm AV Area (Cont Eq VTI) 1.1 cm2 >=3.0 AV Area (Cont Eq Yobani) 1.1 cm2 AV DI (Yobani) 0.39 AV Regurgitation 2D LVOT Area 2.8 cm2 Ventricles Name Value Normal LV Dimensions 2D/MM IVS Diastolic Thickness (2D) 1.2 cm 0.6-1.0 IVS Diastole Thickness (MM) 0.6 cm 0.6-0.9 LVID Diastole (2D) 3.8 cm 3.8-5.2 LVID Diastole (MM) 4.6 cm 3.8-5.2 LVIW Diastolic Thickness (2D) 1.0 cm 0.6-0.9 LVIW Diastolic Thickness (MM) 0.8 cm 0.6-0.9 LVID Systole (2D) 1.6 cm 2.2-3.5 LVID Systole (MM) 2.7 cm 2.2-3.5 LVOT Diameter 1.9 cm LV Mass (2D Cubed) 132.66 g 67.00-162.00 LV Mass Index (2D Cubed) 78 g/m2 43-95 Relative Wall Thickness (2D) 0.52 <=0.42 LV Mass (MM Cubed) 97.70 g 67.00-162.00 LV Mass Index (MM Cubed) 58 g/m2 43-95 Relative Wall Thickness (MM) 0.33 LV Fractional Shortening/Ejection Fraction 2D/MM LV Fractional Shortening (2D) 57 % 27-45 LV Fractional Shortening (MM) 41 % 27-45 LV EF (MM Teichholz) 72 % LV EF (2D Teichholz) 88 % LV Diastolic Volume (4C MOD) 56 ml LV EF (4C MOD) 71 % LV Diastolic Volume (2C MOD) 43 ml LV EF (2C MOD) 57 % LV Diastolic Volume (BP MOD) 49 ml 46-106 LV Diastolic Volume Index (BP MOD) 29 ml/m2 29-61 LV Systolic Volume (BP MOD) 17 ml 14-42 LV Systolic Volume Index (BP MOD) 10 ml/m2 8-24 LV EF (BP MOD) 65 % 54-74 LV Diastolic Length (4C) 7.2 cm LV Systolic Length (4C) 5.6 cm LV Stroke Volume (4C MOD) 40 ml Atria Name Value Normal LA Dimensions LA Dimension (MM) 3.7 cm 2.7-3.8 LA Volume (4C A-L) 76 ml LA Volume (BP A-L) 81 ml RA Dimensions RA Systolic Major [place] Length (4C) 4.8 cm 2.2-2.8 RA Area (4C) 14.8 cm2 <=18.0 Report Signatures
[2025-03-23 06:00] LABS: Hematocrit 37.1 % (37.0-47.0); Hemoglobin 11.8 g/dL (12.0-15.0); Mean Corpuscular HGB Conc 31.8 g/dl (32-36); Mean Corpuscular Hemoglobin 26.2 pg (26-34); Mean Corpuscular Volume 82.4 fl (80-100); Platelet Count Result 250 k/mm3 (150-375); Red Blood Count 4.50 M/mm3 (4.2-5.4); White Blood Count 4.6 K/mm3 (4.5-10.0)
[2025-03-23 06:27] LABS: Alanine Aminotransferase 18 U/L (6-35); Albumin Level 3.3 g/dL (3.5-5.1); Alkaline Phosphatase 92 U/L (38-126); Anion Gap 5 mmol/L (4-12); Aspartate Amino Transferase 35 U/L (14-36); Bilirubin,Total 0.6 mg/dL (0.2-1.3); Blood Urea Nitrogen 10 mg/dL (7-17); Calcium 9.1 mg/dL (8.4-10.2); Carbon Dioxide 25 mmol/L (22-30); Chloride 104 mmol/L (98-107); Estimated CRCL calculation 32 ml/min; Estimated Glomerular Filt Rate > 60; Glucose 123 mg/dL (65-110); Potassium 3.9 mmol/L (3.4-5.0); Sodium 134 mmol/L (137-145); Total Protein 6.3 g/dL (6.3-8.2)
[2025-03-23] MEDS: DONEPEZIL HCL 10 MG TABLET BY MOUTH (08:28)
[2025-03-23] MEDS: LOSARTAN POTASSIUM 25 MG TABLET PO (08:28)
[2025-03-23] MEDS: CLOPIDOGREL BISULFATE 75 MG TABLET PO (08:28)
[2025-03-23] MEDS: ASPIRIN 81 MG ENTERIC TABLET PO (08:28)
[2025-03-23] MEDS: ATORVASTATIN 40 MG TABLET BY MOUTH (08:28)
[2025-03-23] MEDS: POTASSIUM CHLORIDE 20 MEQ PACKET (FOR LIQUID) 40 MEQ PO (08:28)
--- NOTE | 2025-03-23 09:18 | P.PNIM_ITS ---
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 * CTA with no stenosis * continue ASA, atorvastatin started on Plavix 75 daily x3 months stool antiplatelet therapy per Neurology recommendations * PT/OT/ST recommending acute inpatient rehab * echocardiogram pending (2) HTN (hypertension): Qualifiers: Hypertension type: essential hypertension Qualified Code(s): I10 - Essential (primary) hypertension Code(s): I10 - Essential (primary) hypertension Status: Acute Assessment and Plan: * continue patient's losartan metoprolol, and amlodipine * monitor BP per unit protocol (3) UTI (urinary tract infection): Qualifiers: Hematuria presence: with hematuria Urinary tract infection type: acute cystitis Qualified Code(s): N30.01 - Acute cystitis with hematuria Code(s): N39.0 - Urinary tract infection, site not specified Status: Acute Assessment and Plan: UA on arrival suspicious for urinary tract infection, last attainable UA was with E coli pansensitive back in 2020 * IV Rocephin pending cultures (4) Diabetes mellitus: Qualifiers: Diabetes mellitus complication status: without complication Diabetes mellitus senior living insulin use: without extermination supervisor use Diabetes mellitus type: type 2 Qualified Code(s): E11.9 - Type 2 diabetes mellitus without complications Code(s): E11.9 - Type 2 diabetes mellitus without complications Status: Acute Assessment and Plan: * holding patient's metformin * low-dose SSI * Accu-Cheks a.c. HS * hypoglycemia protocol * diabetic diet * A1c 7.0/ follow-up A1c times 3-6 months (5) Generalized weakness: Code(s): R53.1 - Weakness Status: Acute Assessment and Plan: generalized weakness likely secondary to urinary tract infection and new subacute CVA * PT/ OT recommending acute inpatient rehab * care coordination sent referrals to [facility] (6) Vision changes: Code(s): H53.9 - Unspecified visual disturbance Status: Acute Assessment and Plan: CT angiogram head was performed and that shows a severe stenosis the left dread tebral artery and moderate stenosis the right vertebral artery. ED had spoke with Dr. Zapata, opthalmology @ [facility]. [place] transfer not necessary for urgent workup * MRI performed showing A couple additional small foci of susceptibility artifact consistent with chronic microhemorrhage at the right occipital lobe and right thalamus,Moderate-sized likely early subacute infarct with secondary gyral enhancement and some associated petechial hemorrhage in the left occipital lobe. * Follow-up outpatient Plan Code status: Full code per patient DVT prophylaxis: Heparin Stress ulcer prophylaxis: Na PT/OT notes: PT/OT recommends inpatient rehab Disposition: patient continues admission to the medical unit for further evaluation and treatment subacute CVA and urinary tract infection with generalized weakness patient worked with PT /OT who are recommending inpatient rehab referrals have been sent to [facility] from . Time Spent With Patient Time with patient: 15 - 25 minutes Subjective Date/time seen: 03/23/25 09:18 Interval history: Patient is an 84-year-old female who was admitted for further evaluation of weakness and right-sided cloudy vision she was found to have a new subacute infarction 03/23/2025: Patient up in chair doing well still with some communication difficulty, vision unchanged. Denies any dizziness, N/V, SOB, CP. Review of Systems Review of Systems: All systems reviewed & are unremarkable except as noted in HPI and below (Subjective/HPI) Exam Const: General: comfortable and no acute distress Other: A&O x3 HENMT: Mouth: Yes moist mucous membranes Other: Edentulous Eyes: Pupils: Equal, round and reactive pupils present Neck: Neck: supple Resp: Effort & Inspection: normal respiratory effort Auscultation: clear to auscultation bilaterally Cardio: Rate: regular rate Rhythm: regular rhythm Skin: General skin exam: normal color, no rashes or lesions noted and wounds noted Wounds: wounds noted Neuro: Cranial nerves: Yes Equal, round and reactive pupils present Motor exam (neuro): 5/5 motor strength present throughout Other: As described above. Retinal exam difficult, no papilledema or occlusion nahum ntified. Extrem: General: normal to inspection and no edema Psych: Affect: normal affect Objective Data Vital Signs Vital Signs: Vital Signs - 24 hr 03/22/25 12:00 03/22/25 14:00 03/22/25 16:00 Temperature 98.3 F Pulse Rate 79 64 73 Respiratory Rate 18 Blood Pressure 118/68 Pulse Oximetry 98 03/22/25 20:00 03/22/25 21:45 03/23/25 01:34 Temperature 98.1 F Pulse Rate 69 78 66 Respiratory Rate 18 Blood Pressure 130/77 Pulse Oximetry 99 03/23/25 04:47 03/23/25 06:00 Temperature 97.4 F L Pulse Rate 62 74 Respiratory Rate 18 Blood Pressure 131/72 Pulse Oximetry 97 Intake/Output Intake/Output: Intake & Output 03/20/25 03/21/25 03/22/25 03/23/25 23:59 23:59 23:59 23:59 Intake Total 50 2340 2700 170 Output Total 600 750 Balance 50 2340 2100 -580 Meds/Results Medications: Active Medications Generic Name Dose Route Start Last Admin Trade Name Freq PRN Reason Stop Dose Admin Acetaminophen 650 mg 03/20/25 23:21 Acetaminophen 325 Mg Tablet PO Q4H PRN Mild Pain (1-3) or Fever Amlodipine Besylate 5 mg 03/21/25 09:00 03/23/25 08:28 Amlodipine Besylate 5 Mg Tablet PO 5 mg DAILY ARTURO Administration Aspirin 81 mg 03/22/25 09:00 03/23/25 08:28 Aspirin 81 Mg Enteric Tablet PO 81 mg QAM ARTURO Administration Atorvastatin Calcium 40 mg 03/21/25 09:00 03/23/25 08:28 Atorvastatin 40 Mg Tablet BY MOUTH 40 mg DAILY ARTURO Administration Clopidogrel Bisulfate 75 mg 03/22/25 10:45 03/23/25 08:28 Clopidogrel Bisulfate 75 Mg Tablet PO 75 mg QAM ARTURO Administration Dextrose 12.5 gm 03/21/25 00:46 Dextrose 50% 25 Gm/50 Ml Syringe IV PUSH PRN PRN Hypoglycemia Protocol Donepezil HCl 10 mg 03/21/25 09:00 03/23/25 08:28 Donepezil Hcl 10 Mg Tablet BY MOUTH 10 mg DAILY ARTURO Administration Glucagon 1 mg 03/20/25 23:21 Glucagon For Inj 1 Mg Vial IM PRN PRN Hypoglycemia Protocol Glucose 15 gm 03/21/25 00:46 Glucose Oral Gel 15 Gm Of Glucse In 37.5 Gm Tube PO PRN PRN Hypoglycemia Protocol Heparin Sodium (Porcine) 5,000 units 03/21/25 00:50 03/23/25 08:28 Heparin Sodium 5,000 Units/Ml Vial SUB-Q 5,000 units Q12HR ARTURO Administration Ceftriaxone Sodium 1 gm/ 50 mls @ 100 mls/hr 03/21/25 21:00 03/23/25 00:32 Sodium Chloride IVPB Infused Q24H ARTURO Infusion Dextrose 1,000 mls @ 100 mls/hr 03/21/25 00:46 Dextrose 5% 1,000 Ml IVPB PRN PRN Hypoglycemia Protocol Insulin Aspart 2 - 5 units 03/21/25 08:00 03/23/25 08:03 Insulin Aspart (*Bkc) 100 Units/Ml SUB-Q Not Given TIDWM ARTURO Protocol Insulin Aspart 1 - 2 units 03/21/25 21:00 03/22/25 20:57 Insulin Aspart (*Bkc) 100 Units/Ml SUB-Q Not Given HS ARTURO Protocol Losartan Potassium 25 mg 03/21/25 09:00 03/23/25 08:28 Losartan Potassium 25 Mg Tablet PO 25 mg DAILY ARTURO Administration Oxybutynin Chloride 5 mg 03/21/25 09:00 03/23/25 08:28 Oxybutynin Chloride 5 Mg Tablet PO 5 mg BID ARTURO Administration Perflutren Lipid Microsphere 0 ml 03/21/25 14:18 Perflutren Lipid Microspheres 1.5 Ml Vial Diluted To 10 Ml Total Volume IV PUSH 03/24/25 14:18 ONCE PRN adequate visualization Protocol Potassium Chloride 40 meq 03/21/25 09:00 03/23/25 08:28 Potassium Chloride 20 Meq Packet (For Liquid) PO 40 meq DAILY ARTURO Administration Radiology Results: ITS Impressions Chest X-Ray 03/20/25 18:33 IMPRESSION: Focal, subsegmental atelectasis/consolidation in the left lower lung. Recommend short-term radiographic follow-up to ensure resolution. Head CT 03/20/25 18:59 IMPRESSION: No acute intracranial process. Head/Neck CTA 03/20/25 20:34 IMPRESSION: No large vessel intracranial occlusion, high-grade intracranial stenosis, or aneurysm. No carotid artery occlusion, dissection, or significant stenosis. No vertebral artery occlusion or dissection. 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 Brain MRI 03/21/25 12:43 IMPRESSION: 1. Moderate-sized likely early subacute infarct with secondary gyral enhancement and some associated petechial hemorrhage in the left occipital lobe. 2. Additional mild scattered mesenteric white matter T2 hyperintensity consistent with chronic small vessel ischemic disease. 3. A couple additional small foci of susceptibility artifact consistent with chronic microhemorrhage at the right occipital lobe and right thalamus. Labs Labs: Laboratory Results - last 24 hr 03/22/25 03/22/25 03/22/25 12:12 17:01 20:55 WBC RBC Hgb Hct MCV MCH MCHC RDW Plt Count MPV Sodium Potassium Chloride Carbon Dioxide Anion Gap BUN Creatinine Estim Creat Clear Calc Estimated GFR Glucose POC Capillary Glucose 285 H 143 H 183 H Calcium Total Bilirubin AST ALT Alkaline Phosphatase Total Protein Albumin 03/23/25 03/23/25 05:43 07:56 WBC 4.6 RBC 4.50 Hgb 11.8 L Hct 37.1 MCV 82.4 MCH 26.2 MCHC 31.8 L RDW 15.3 H Plt Count 250 MPV 9.7 Sodium 134 L Potassium 3.9 Chloride 104 Carbon Dioxide 25 Anion Gap 5 BUN 10 Creatinine 0.88 Estim Creat Clear Calc 32 Estimated GFR > 60 Glucose 123 H POC Capillary Glucose 130 H Calcium 9.1 Total Bilirubin 0.6 AST 35 ALT 18 Alkaline Phosphatase 92 Total Protein 6.3 Albumin 3.3 L Quality VTE Prophylaxis VTE prophylaxis: pharmacologic ordered -Patient's previous records reviewed on admission -ER notes reviewed in detail on admission -discussed all findings and current treatment plan with patient/Family/POA -Consultations reviewed for recommendations -Patient's disposition for safe discharge discussed with geriatric case manager Dictation performed by [employer] direct speech recognition software, therefore paratransit driver variants and typographical errors may occur. Hospitalist MIPS Advance Care Plan I have confirmed that the patient's Advanced Care Plan is present, code status is documented, or surrogate decision maker is listed in patient medical record.: Yes Medication Reconciliation I have utilized all available resources to obtain, update and review the patients current medications (includes all prescriptions, OTC, herbals, cannabis, and nutritional supplements).: Yes The patient is not eligible for med reconciliation; the patient is in a emergent medical situation where delaying treatment would jeopardize the patients health.: No
[2025-03-23] MEDS: INSULIN ASPART (*BKC) 100 UNITS/ML SUB-Q (11:53)
[2025-03-23] MEDS: cefTRIAXone 1 GM in SODIUM CHLORIDE 0.9% IV 50 ML 100 ML IVPB (20:20)
[2025-03-24] VITALS: PULSE 68
[2025-03-24 04:00] VITALS: PULSE 61
[2025-03-24 05:54] LABS: Hematocrit 39.4 % (37.0-47.0); Hemoglobin 12.1 g/dL (12.0-15.0); Mean Corpuscular HGB Conc 30.7 g/dl (32-36); Mean Corpuscular Hemoglobin 25.9 pg (26-34); Mean Corpuscular Volume 84.4 fl (80-100); Platelet Count Result 261 k/mm3 (150-375); Red Blood Count 4.67 M/mm3 (4.2-5.4); White Blood Count 4.3 K/mm3 (4.5-10.0)
[2025-03-24 06:00] VITALS: BP 139/88; PULSE 64; RESP 18; TEMP 36.6; O2SAT 99
[2025-03-24 06:14] LABS: Alanine Aminotransferase 27 U/L (6-35); Albumin Level 3.4 g/dL (3.5-5.1); Alkaline Phosphatase 88 U/L (38-126); Anion Gap 4 mmol/L (4-12); Aspartate Amino Transferase 45 U/L (14-36); Bilirubin,Total 0.5 mg/dL (0.2-1.3); Blood Urea Nitrogen 12 mg/dL (7-17); Calcium 9.2 mg/dL (8.4-10.2); Carbon Dioxide 24 mmol/L (22-30); Chloride 109 mmol/L (98-107); Estimated CRCL calculation 32 ml/min; Estimated Glomerular Filt Rate > 60; Glucose 123 mg/dL (65-110); Sodium 137 mmol/L (137-145); Total Protein 6.5 g/dL (6.3-8.2)
[2025-03-24 06:22] LABS: Potassium 4.3 mmol/L (3.4-5.0)
[2025-03-24] MEDS: ATORVASTATIN 40 MG TABLET BY MOUTH (09:26)
[2025-03-24] MEDS: ASPIRIN 81 MG ENTERIC TABLET PO (09:26)
[2025-03-24] MEDS: POTASSIUM CHLORIDE 20 MEQ PACKET (FOR LIQUID) 40 MEQ PO (09:26)
[2025-03-24] MEDS: CLOPIDOGREL BISULFATE 75 MG TABLET PO (09:26)
[2025-03-24] MEDS: DONEPEZIL HCL 10 MG TABLET BY MOUTH (09:26)
[2025-03-24] MEDS: LOSARTAN POTASSIUM 25 MG TABLET PO (09:27)
[2025-03-24 09:29] VITALS: PULSE 63
[2025-03-24 12:00] VITALS: PULSE 79
[2025-03-24 14:00] VITALS: BP 100/65; PULSE 76; RESP 16; TEMP 37; O2SAT 100
--- NOTE | 2025-03-24 14:15 | P.DS_ITS ---
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: Code(s): I63.532 - Cerebral infarction due to unspecified occlusion or stenosis of left posterior cerebral artery Status: Acute (2) HTN (hypertension): Qualifiers: Hypertension type: essential hypertension Qualified Code(s): I10 - Essential (primary) hypertension Code(s): I10 - Essential (primary) hypertension Status: Acute (3) UTI (urinary tract infection): Qualifiers: Hematuria presence: with hematuria Urinary tract infection type: acute cystitis Qualified Code(s): N30.01 - Acute cystitis with hematuria Code(s): N39.0 - Urinary tract infection, site not specified Status: Acute (4) Diabetes mellitus: Qualifiers: Diabetes mellitus complication status: without complication Diabetes mellitus salvage determiner insulin use: without salvage determiner use Diabetes mellitus type: type 2 Qualified Code(s): E11.9 - Type 2 diabetes mellitus without complications Code(s): E11.9 - Type 2 diabetes mellitus without complications Status: Acute (5) Generalized weakness: Code(s): R53.1 - Weakness Status: Acute (6) Vision changes: Code(s): H53.9 - Unspecified visual disturbance Status: Acute DS: Summary Hospital Course Reason for hospitalization: Acute CVA /UTI Hospital Course: Admission: Patient was a 84-year-old female with history of hypertension, hyperlipidemia, dementia, GERD, bca-djauior-ntezmursp diabetes mellitus, hypertensive retinopathy, nonproliferative diabetic retinopathy, left eye posterior vitreous detachment, bilateral cataracts status post extraction with intra-ocular lens insertion, presents to [facility] on 03/20/2025 with weakness, confu nikhil, white spots and decreased vision on the right visual field. For a few days she has felt weak and a bit more confused than usual. On day of admission she could not grab her walker with her right hand as her vision was obscured. No focal weakness or numbness. No slurred speech, no syncope, dizziness, chest pain, nausea, vomiting, diarrhea, shortness of breath, fever. She also had a left-sided headache a day prior but that resolved. Took Tylenol. She has no history of stroke but takes aspirin and atorvastatin daily. In the ED: revealed decreased vision right visual field in the right eye, slightly better in the left eye. No focal deficits otherwise. WBC 7.3, urinalysis cloudy, leukocyte esterase 1+, nitrate positive, 21-50 WBC, few squamous cells. Chest x-ray with subsegmental atelectasis. CT head no acute intracranial process, moderate atrophy and chronic white matter change. CTA head and neck no occlusion, severe left and moderate right vertebral artery origin stenosis. She was given ceftriaxone IV. ER physician had discussed csase with Dr. Zaptaa, ophthalmology @ [facility] [place] transfer not necessary for urgent workup. Case discussed with in-house Neurology Dr. Aguilar. Advised MRI and admission. Hospital Course: patient was then admitted to the medical unit for further evaluation and treatment of possible CVA and MRI was ordered and Neurology was consulted. brain MRI demonstrated a moderate sized likely early subacute infarct with secondary Tone enhancement and some associated petechial hemorrhaging of the left occipital lobe. these results were evaluated by Neurology at which time they place patient on atorvastatin, ASA and Plavix. patient will continue with dual antiplatelet therapy for 3 months but then can transition just to ASA. physical, occupational, and speech therapy were consulted for evaluation recommended acute rehab for further therapy after acute CVA. Patient with overall improvement during admission and was progressing back to her baseline prior to acute stroke. during this admission she was also found to have a urinary tract infection which grew E coli that was pansensitive. Patient on day of discharge alert and oriented responding appropriately but still having some difficulty communication. Patient was discharged to [facility] for continued rehab transitioned her to oral antibiotic therapy for completion for UTI. family and patient updated on discharge plan both acknowledged and agreed. on day of discharge labs reviewed desirable ranges and vitals stable. Status at Discharge Functional status at discharge: uses cane/walker Overall status at discharge: patient is progressing back to baseline Time Spent with Patient Time attestation: Total time spent providing and/or coordinating discharge services: Time spent: Greater than 30 minutes Exam Const: General: comfortable and no acute distress Other: A&O x3 HENMT: Mouth: Yes moist mucous membranes Other: Edentulous Eyes: Pupils: Equal, round and reactive pupils present Neck: Neck: supple Resp: Effort & Inspection: normal respiratory effort Auscultation: clear to auscultation bilaterally Cardio: Rate: regular rate Rhythm: regular rhythm : General: Yes bladder normal to palpation Bimanual exam- vagina & uterus: bladder normal to palpation Skin: General skin exam: normal color, no rashes or lesions noted and wounds noted Wounds: wounds noted Neuro: Cranial nerves: Yes Equal, round and reactive pupils present Motor exam (neuro): 5/5 motor strength present throughout Other: As described above. Retinal exam difficult, no papilledema or occlusion identified. Extrem: General: normal to inspection and no edema Psych: Affect: normal affect DS: Data Data Completed and Pending Labs on day of discharge: Labs from last 24 hours 03/24/25 03/24/25 03/24/25 11:43 08:00 05:40 WBC 4.3 L RBC 4.67 Hgb 12.1 Hct 39.4 MCV 84.4 MCH 25.9 L MCHC 30.7 L RDW 15.5 H Plt Count 261 MPV 10.1 Sodium 137 Potassium 4.3 Chloride 109 H Carbon Dioxide 24 Anion Gap 4 BUN 12 Creatinine 0.88 Estim Creat Clear Calc 32 Estimated GFR > 60 Glucose 123 H POC Capillary Glucose 190 H 128 H Calcium 9.2 Total Bilirubin 0.5 AST 45 H ALT 27 Alkaline Phosphatase 88 Total Protein 6.5 Albumin 3.4 L 03/23/25 03/23/25 20:50 17:13 WBC RBC Hgb Hct MCV MCH MCHC RDW Plt Count MPV Sodium Potassium Chloride Carbon Dioxide Anion Gap BUN Creatinine Estim Creat Clear Calc Estimated GFR Glucose POC Capillary Glucose 213 H 131 H Calcium Total Bilirubin AST ALT Alkaline Phosphatase Total Protein Albumin Imaging Radiologist's impression: Radiology Results: ITS Impressions Chest X-Ray 03/20/25 18:33 IMPRESSION: Focal, subsegmental atelectasis/consolidation in the left lower lung. Recommend short-term radiographic follow-up to ensure resolution. Head CT 03/20/25 18:59 IMPRESSION: No acute intracranial process. Head/Neck CTA 03/20/25 20:34 IMPRESSION: No large vessel intracranial occlusion, high-grade intracranial stenosis, or aneurysm. No carotid artery occlusion, dissection, or significant stenosis. No vertebral artery occlusion or dissection. 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 Brain MRI 03/21/25 12:43 IMPRESSION: 1. Moderate-sized likely early subacute infarct with secondary gyral enhancement and some associated petechial hemorrhage in the left occipital lobe. 2. Additional mild scattered mesenteric white matter T2 hyperintensity consistent with chronic small vessel ischemic disease. 3. A couple additional small foci of susceptibility artifact consistent with chronic microhemorrhage at the right occipital lobe and right thalamus. Discharge Plan Discharge Attending physician on discharge: Sathya Florentino Consulting providers: Hector Aguilar; Katerina Escoto Discharging Clinician: Katerina Escoto Anticipated Discharge Date/Time: 03/24/25 14:07 Patient Disposition: SNF Activity: may shower and as tolerated Diet: diabetic Discharge Instructions: 1). CVA * continue ASA, atorvastatin started on Plavix 75 daily x3 months dual antiplatelet therapy per Neurology recommendations then can stop the Plavix * Continue with PT/OT/ST * Monitor and control blood pressure 2). UTI * I have prescribed oral antibiotic please complete as indicated 3) Vision changes * MRI performed showed additional small foci of susceptibility artifact consistent with chronic microhemorrhage at the right occipital lobe and right thalamus,Moderate-sized likely early subacute infarct with secondary gyral enhancement and some associated petechial hemorrhage in the left occipital lobe. * Follow-up outpatient with your fuller brush man How can you care for yourself at home? ? Keep track of any new symptoms or changes in your symptoms. ? Rest until you feel better. ? Be safe with medicines. Take your medicines exactly as prescribed. Call your doctor if you think you are having a problem with your medicine. ? Do not drive after taking a prescription pain medicine. ? Ensure to follow-up with primary care physician as indicated and provide updated medication list provided to you at discharge. When should you call for help? Call 911 anytime you think you may need emergency care. For example, call if: ? You passed out (lost consciousness). Call your doctor now or seek immediate medical care if: ? You have new symptoms like fever, difficulty breathing, Chest pain, vomiting, or rash. ? You have new or different pain. ? You are confused and are having trouble thinking clearly. ? Your symptoms are getting worse. Watch closely for changes in your health, and be sure to contact your doctor if: ? You do not get better as expected. Patient Instructions: Ischemic Stroke (DC), Urinary Tract Infection in Older Adults (DC) Patient Language: Citizen Of [place] Stand Alone Forms: General Discharge Information, Correction Discharge Follow-up/Referrals: Rafal Meraz MD [Primary Care Provider] - 3 Weeks Discharge Medications: New clopidogrel 75 mg Tablet 75 mg PO QAM Qty: 90 0RF Rx Instructions: Stop after 3 months cephalexin 500 mg Capsule 500 mg PO Q12HR Qty: 6 0RF Continued acetaminophen [Tylenol Extra Strength] 500 mg tablet 500 mg PO DAILY PRN (Reason: Pain) aspirin 81 mg Tablet 81 mg PO DAILY Centrum Silver Women 8 mg iron-400 mcg-300 mcg Tablet 1 tablet PO DAILY calcium carbonate [Antacid (calcium carbonate)] 200 mg calcium (500 mg) Tablet,Chewable 200 mg PO BID PRN (Reason: Heartburn) oxybutynin chloride 5 mg tablet See Rx Instructions .ROUTE .COMPLEX Qty: 180 2RF Dose Instruction: TAKE 1 TABLET BY MOUTH TWICE DAILY Rx Instructions: TAKE 1 TABLET BY MOUTH TWICE DAILY donepezil 10 mg tablet See Rx Instructions .ROUTE .COMPLEX Qty: 90 2RF Dose Instruction: TAKE 1 TABLET BY MOUTH DAILY Rx Instructions: TAKE 1 TABLET BY MOUTH DAILY potassium chloride 20 mEq tablet,ER particles/crystals See Rx Instructions .ROUTE .COMPLEX Qty: 90 2RF Dose Instruction: TAKE 1 TABLET BY MOUTH EVERY DAY Rx Instructions: TAKE 1 TABLET BY MOUTH EVERY DAY metoprolol succinate 100 mg tablet extended release 24 hr See Rx Instructions .ROUTE .COMPLEX Qty: 90 2RF Dose Instruction: TAKE 1 TABLET BY MOUTH DAILY Rx Instructions: TAKE 1 TABLET BY MOUTH DAILY amlodipine 5 mg tablet See Rx Instructions .ROUTE .COMPLEX Qty: 90 2RF Dose Instruction: TAKE 1 TABLET(5 MG) BY MOUTH EVERY DAY Rx Instructions: TAKE 1 TABLET(5 MG) BY MOUTH EVERY DAY metformin 1,000 mg tablet See Rx Instructions .ROUTE .COMPLEX Qty: 180 2RF Dose Instruction: TAKE 1 TABLET BY MOUTH TWICE DAILY Rx Instructions: TAKE 1 TABLET BY MOUTH TWICE DAILY losartan 25 mg tablet 25 mg PO DAILY Qty: 90 2RF atorvastatin 40 mg tablet See Rx Instructions .ROUTE .COMPLEX Qty: 90 2RF Dose Instruction: TAKE 1 TABLET BY MOUTH DAILY Rx Instructions: TAKE 1 TABLET BY MOUTH DAILY Discontinued (DME) Dexcom G7 Sensor Device See Rx Instructions .ROUTE .COMPLEX Qty: 1 3RF Dose Instruction: USE DIRECTED Rx Instructions: USE DIRECTED Date of admission: 03/21/25 15:03 Primary Care Provider: Rafal Meraz Admitting Provider: Nikia Haider Attending physician on admission: Nikia Haider Condition: Stable Quality VTE Prophylaxis VTE prophylaxis: pharmacologic ordered -Patient's previous records reviewed on admission -ER notes reviewed in detail on admission -discussed all findings and current treatment plan with patient/Family/POA -Consultations reviewed for recommendations -Patient's disposition for safe discharge discussed with caseworker intake Dictation performed by [employer] direct speech recognition software, therefore analysis lead variants and typographical errors may occur. Hospitalist MIPS Heart Failure (Exclusion) Patient has history of Heart Transplant or Left Ventricular Assistive Device?: No IF YES, STOP HERE Heart Failure (Qualifier) Patient has current or prior documentation of LVEF less than or equal to 40%, or mod/servere depressed LVSF?: No IF NO, STOP HERE
== END 2025-03-24 16:40 | DRG 65 ==
LOC: ANHED 03-21 00:06 → ANH3MED 03-21 00:23
PROVIDERS: Emergency Medicine; Psychiatry & Neurology Neurology; Admitting Provider General Practice; Emergency Provider Physician Assistant; PCP Emergency Medicine; Visit Provider Nurse Practitioner Family
DX: I63.532 Cerebral infarction due to unspecified occlusion or stenosis of left posterior cerebral artery (principal); N39.0 Urinary tract infection, site not specified; H53.461 Homonymous bilateral field defects, right side; I10 Essential (primary) hypertension; E87.6 Hypokalemia; E83.42 Hypomagnesemia; E78.5 Hyperlipidemia, unspecified; E11.319 Type 2 diabetes mellitus with unspecified diabetic retinopathy without macular edema; K21.9 Gastro-esophageal reflux disease without esophagitis; K57.30 Diverticulosis of large intestine without perforation or abscess without bleeding; M19.90 Unspecified osteoarthritis, unspecified site; H35.039 Hypertensive retinopathy, unspecified eye; H40.9 Unspecified glaucoma; F03.90 Unspecified dementia, unspecified severity, without behavioral disturbance, psychotic disturbance, mood disturbance, and anxiety; Z79.82 Long term (current) use of aspirin; Z87.891 Personal history of nicotine dependence
CPT/HCPCS: 36415; 70450; 70496; 70498; 70553; 71045; 80048; 80053; 80061; 81001; 82306; 82607; 82746; 82948; 83036; 83735; 84443; 85025; 85027; 87086; 92507; 92523; 93005; 93306; 96361; 96365; 96366; 96367; 96375; 97110; 97116; 97162; 97165; 97530; 97535; 99285; A9270; A9577; G0378; J0696; J1644; J1815; J3475; J7030; Q9967

== ENCOUNTER 2025-04-14 05:06 | Inpatient (IN) | payer MEDICARE, SELFPAY ==
[2025-04-14 05:05] VITALS: BP 124/91; PULSE 57; RESP 18; TEMP 36.8; O2SAT 100
--- NOTE | 2025-04-14 05:16 | ECG_ITS ---
Test Date: 2025-04-14 05:22:37 Measurements Intervals [place] Rate: 49 P: -17 NC: 359 QRS: 35 QRSD: 82 T: 57 QT: 465 QTc: 423 Interpretive Statements SINUS BRADYCARDIA BASELINE ARTIFACT- V5-V6 ABNORMAL ECG Compared to ECG 03/20/2025 18:01:33 HEART RATE HAS DECREASED Electronically Signed On 04-14-2025 06:24:44 CDT by Joe Rivero D.O.
[2025-04-14 05:25] VITALS: BP 124/91; PULSE 61; RESP 20; O2SAT 100
--- OUTSIDE RECORDS SUMMARY | 2025-04-14 05:25 | XMS_ITS | Patient Health Record ---
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
[2025-04-14 05:34] LABS: Hematocrit 35.5 % (37.0-47.0); Hemoglobin 11.0 g/dL (12.0-15.0); Immature Granulocyte Percent A 0.4 % (0-0.5); Lymphocytes Absolute Auto 1.15 K/mm3 (0.9-3.2); Mean Corpuscular HGB Conc 31.0 g/dl (32-36); Mean Corpuscular Hemoglobin 26.3 pg (26-34); Mean Corpuscular Volume 84.9 fl (80-100); Nucleated Red Blood Cells Absolute Auto 0.000 K/mm3 (0.0-0.012); Nucleated Red Blood Cells Perc 0.0 % (0.0-0.2); Platelet Count Result 286 k/mm3 (150-375); Red Blood Count 4.18 M/mm3 (4.2-5.4); White Blood Count 5.6 K/mm3 (4.5-10.0)
[2025-04-14 05:51] LABS: Lipase 254 U/L (23-300); Magnesium 1.2 mg/dL (1.6-2.3)
[2025-04-14 05:52] LABS: Alanine Aminotransferase 15 U/L (6-35); Albumin Level 3.3 g/dL (3.5-5.1); Alkaline Phosphatase 84 U/L (38-126); Anion Gap 8 mmol/L (4-12); Aspartate Amino Transferase 27 U/L (14-36); Bilirubin,Total 0.6 mg/dL (0.2-1.3); Blood Urea Nitrogen 19 mg/dL (7-17); Calcium 9.4 mg/dL (8.4-10.2); Carbon Dioxide 24 mmol/L (22-30); Chloride 106 mmol/L (98-107); Estimated CRCL calculation 42 ml/min; Estimated Glomerular Filt Rate > 60; Glucose 126 mg/dL (65-110); Potassium 4.5 mmol/L (3.4-5.0); Sodium 138 mmol/L (137-145); Total Protein 6.2 g/dL (6.3-8.2)
--- NOTE | 2025-04-14 06:16 | ED_ITS ---
HPI - General Adult General Chief complaint: GI Bleed Stated complaint: RECTAL BLEED Time Seen by Provider: 04/14/25 05:08 History of Present Illness HPI narrative: Patient is an 84-year-old female who presents emergency department this morning from local [place] due to lower GI bleed. Per [facility] report, patient has been having bloody stools, bright red blood since 11:00 p.m. last night. Patient has had a previous history of lower GI bleed. She was recently started on blood thinners, Plavix approximately 3 weeks ago after she was diagnosed with a stroke. Otherwise patient is denying any symptoms, is resting comfortably and does not appear to be in any distress. Related Data Home Medications ?Medication ?Instructions ?Recorded ?Confirmed ?Last Taken ?Type acetaminophen 500 mg tablet 500 mg PO DAILY PRN Pain 0 09/15/19 03/21/25 Unknown History (Tylenol Extra Strength) aspirin 81 mg tablet 81 mg PO DAILY 12/04/2010/14 Unknown History calcium carbonate (Antacid 200 mg PO BID PRN Heartburn 12/04/20 03/21/25 Unknown History (calcium carbonate)) [id number] 8 mg-folic 400 1 tablet PO DAILY 03/21/25 Unknown History mcg-K 50 mcg-lutein 300 mcg tablet (Centrum Silver Women) Allergies Allergy/AdvReac Type Severity Reaction Status Date / Time codeine Allergy Unknown Unknown Verified 04/14/25 05:14 Review of Systems 2 Review of Systems: All systems are reviewed and are negative unless stated otherwise in the HPI. 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 Diverticulosis Rectal bleeding Black tarry stools Chest pain Sinusitis Lower extremity edema Nausea & vomiting Dementia Mild dementia GERD (gastroesophageal reflux disease) Urge urinary incontinence Essential hypertension Urinary tract infection High cholesterol Glaucoma Diabetes Chicken pox Arthritis Anemia Surgical History Surgical History Status post cataract extraction of both eyes with insertion of intraocular lens Hx of cholecystectomy (~1998) Family History Family History Father , 79 Heart attack Mother , 83 Heart attack Social History Social History Social History: She is and lives at home alone. 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 Smoking status: Former smoker Tobacco type: cigarettes Additional smoking assessment comments: Pt states she smoked for about 9years Alcohol intake: never Substance use: never Substance use type: does not use Do You Feel Safe in your Home?: Yes Lack of Transportation: No Lack of Food: Never True Current Housing: I Have Housing Concerned About Future Housing: No Difficulty Paying Gas/Electric Bills: No Difficulty Paying for Meds: No Currently Unemployed: No Education: Decline to Answer Difficulty w/ Childcare or Family Care: No Living arrangements: assisted living Gender identity (if verbalized by the patient): Female Spiritual care concerns: No Exam 2 Narrative: General: Alert, awake, afebrile, in no acute distress. HEENT: PERRL, no rhinorrhea, no post nasal drip, oropharynx clear. Neck: Trachea midline, no JVD, no lymphadenopathy. Cardiovascular: Regular rate and rhythm, no murmurs, rubs or gallops, no peripheral edema. Respiratory: Clear to auscultation bilaterally, no tachypnea, no wheezing, no rhonchi, no rubs, no respiratory distress. Abdomen: Soft, nontender, nondistended, no rebound, no guarding, no peritoneal signs. Rectal: Good rectal tone, patient is passing large amount of small blood clots, bright red blood, no stool identified. Musculoskeletal: No joint swelling or deformity, normal muscle tone. Skin: No rashes or petechia, no signs of infection. Psychiatric: Alert and oriented, normal behavior and judgment for situation. Neurological: Alert and oriented to person, place, and time. Follows all commands. No focal deficits, speech is clear and fluent. Course Vital Signs Vital signs: Vital Signs Temperature 98.3 F 04/14/25 05:05 Pulse Rate 57 L 04/14/25 05:05 Respiratory Rate 18 04/14/25 05:05 Blood Pressure 124/91 H 04/14/25 05:05 Pulse Oximetry 100 04/14/25 05:05 Oxygen Delivery Room Air 04/14/25 05:05 Temperature 98.3 F 04/14/25 05:05 Pulse Rate 61 04/14/25 05:25 Respiratory Rate 20 04/14/25 05:25 Blood Pressure 124/91 H 04/14/25 05:25 Pulse Oximetry 100 04/14/25 05:25 Oxygen Delivery Room Air 04/14/25 05:05 Medical Decision Making MDM Narrative Medical decision making narrative: The patient was evaluated by myself in the emergency department. History is obtained from patient who is an independent historian and physical exam was performed. External medical records were reviewed at this time. IV was established and pertinent tests were ordered. Laboratory results obtained revealing a low magnesium of over 1.2 otherwise unremarkable. Patient was administered 2 g of IV magnesium at this time. Differential diagnosis considerations include upper versus lower GI bleed, hypovolemic shock, electrolyte derangements. Comorbidities impacting this visit include none. I have evaluated and discussed social determinants of health with the patient that could potentially impact subsequent diagnosis and treatment plans. On repeat assessment of the patient, reevaluation revealed that the patient is doing well and is in no acute distress. Patient symptoms have improved since she arrived to our emergency department. Repeat vital signs were all reviewed and noted to be stable. Differential diagnosis and treatment plan were discussed with the patient at bedside. Patient agrees with discussion and after shared medical decision making agrees with admission. All questions were answered to the patient's satisfaction. Case was discussed with the on-call recycling specialist Dr. Blake at [phone] was accepted admission. Case was discussed with the on-call hospitalist WILL Hayes at [phone] and he accepted admission. Vital Signs Vital Signs: Vital Signs Temperature 98.3 F 04/14/25 05:05 Pulse Rate 57 L 04/14/25 05:05 Respiratory Rate 18 04/14/25 05:05 Blood Pressure 124/91 H 04/14/25 05:05 Pulse Oximetry 100 04/14/25 05:05 Oxygen Delivery Room Air 04/14/25 05:05 Temperature 98.3 F 04/14/25 05:05 Pulse Rate 61 04/14/25 05:25 Respiratory Rate 20 04/14/25 05:25 Blood Pressure 124/91 H 04/14/25 05:25 Pulse Oximetry 100 04/14/25 05:25 Oxygen Delivery Room Air 04/14/25 05:05 Lab Data 04/14/25 05:24 04/14/25 05:24 Labs: Lab Results 04/14/25 Range/Units 05:24 WBC 5.6 (4.5-10.0) K/mm3 RBC 4.18 L (4.2-5.4) M/mm3 Hgb 11.0 L (12.0-15.0) g/dL Hct 35.5 L (37.0-47.0) % MCV 84.9 (80-100) fl MCH 26.3 (26-34) pg MCHC 31.0 L (32-36) g/dl RDW 15.2 H (11.5-14.5) % Plt Count 286 (150-375) k/mm3 MPV 10.5 H (7.4-10.4) fl Immature Gran % (Auto) 0.4 (0-0.5) % Neut % (Auto) 66.3 (45.5-73.1) % Lymph % (Auto) 20.6 (18.3-44.2) % Hardee % (Auto) 9.3 H (2.6-8.5) % Eos % (Auto) 2.7 (0-4.4) % Baso % (Auto) 0.7 (0.2-1.2) % Lymph # (Auto) 1.15 (0.9-3.2) K/mm3 Hardee # (Auto) 0.5 (0.1-0.6) K/mm3 Eos # (Auto) 0.2 (0-0.3) K/mm3 Baso # (Auto) 0.0 (0.0-0.1) K/mm3 Abs Immat Gran (auto) 0.02 (0.00-0.031) K/mm3 Absolute Neuts (auto) 3.7 (1.3-6.7) K/mm3 Absolute Nucleated RBC 0.000 (0.0-0.012) K/mm3 Nucleated RBC % 0.0 (0.0-0.2) % Sodium 138 (137-145) mmol/L Potassium 4.5 (3.4-5.0) mmol/L Chloride 106 (98-107) mmol/L Carbon Dioxide 24 (22-30) mmol/L Anion Gap 8 (4-12) mmol/L BUN 19 H (7-17) mg/dL Creatinine 0.77 (0.7-1.0) mg/dL Estim Creat Clear Calc 42 ml/min Estimated GFR > 60 (59 - ) Glucose 126 H (65-110) mg/dL Calcium 9.4 (8.4-10.2) mg/dL Magnesium 1.2 L (1.6-2.3) mg/dL Total Bilirubin 0.6 (0.2-1.3) mg/dL AST 27 (14-36) U/L ALT 15 (6-35) U/L Alkaline Phosphatase 84 (38-126) U/L Total Protein 6.2 L (6.3-8.2) g/dL Albumin 3.3 L (3.5-5.1) g/dL Lipase 254 (23-300) U/L Blood Type Pending Antibody Screen Pending Discharge Plan Discharge Clinical Impression: Acute lower GI bleeding Patient Disposition: Still a Patient Condition: Stable Patient Language: Solomon Islander Prescriptions: No Action acetaminophen [Tylenol Extra Strength] 500 mg tablet 500 mg PO DAILY PRN (Reason: Pain) clopidogrel 75 mg Tablet 75 mg PO QAM Qty: 90 0RF Rx Instructions: Stop after 3 months cephalexin 500 mg Capsule 500 mg PO Q12HR Qty: 6 0RF aspirin 81 mg Tablet 81 mg PO DAILY Centrum Silver Women 8 mg iron-400 mcg-300 mcg Tablet 1 tablet PO DAILY calcium carbonate [Antacid (calcium carbonate)] 200 mg calcium (500 mg) Tablet,Chewable 200 mg PO BID PRN (Reason: Heartburn) potassium chloride 20 mEq tablet,ER particles/crystals See Rx Instructions .ROUTE .COMPLEX Qty: 90 2RF Dose Instruction: TAKE 1 TABLET BY MOUTH EVERY DAY Rx Instructions: TAKE 1 TABLET BY MOUTH EVERY DAY metoprolol succinate 100 mg tablet extended release 24 hr See Rx Instructions .ROUTE .COMPLEX Qty: 90 2RF Dose Instruction: TAKE 1 TABLET BY MOUTH DAILY Rx Instructions: TAKE 1 TABLET BY MOUTH DAILY amlodipine 5 mg tablet See Rx Instructions .ROUTE .COMPLEX Qty: 90 2RF Dose Instruction: TAKE 1 TABLET(5 MG) BY MOUTH EVERY DAY Rx Instructions: TAKE 1 TABLET(5 MG) BY MOUTH EVERY DAY metformin 1,000 mg tablet See Rx Instructions .ROUTE .COMPLEX Qty: 180 2RF Dose Instruction: TAKE 1 TABLET BY MOUTH TWICE DAILY Rx Instructions: TAKE 1 TABLET BY MOUTH TWICE DAILY losartan 25 mg tablet 25 mg PO DAILY Qty: 90 2RF atorvastatin 40 mg tablet See Rx Instructions .ROUTE .COMPLEX Qty: 90 2RF Dose Instruction: TAKE 1 TABLET BY MOUTH DAILY Rx Instructions: TAKE 1 TABLET BY MOUTH DAILY oxybutynin chloride 5 mg tablet See Rx Instructions .ROUTE .COMPLEX Qty: 180 2RF Dose Instruction: TAKE 1 TABLET BY MOUTH TWICE DAILY Rx Instructions: TAKE 1 TABLET BY MOUTH TWICE DAILY donepezil 10 mg tablet See Rx Instructions .ROUTE .COMPLEX Qty: 90 2RF Dose Instruction: TAKE 1 TABLET BY MOUTH DAILY Rx Instructions: TAKE 1 TABLET BY MOUTH DAILY Follow-up/Referrals: Rafal Meraz MD [Primary Care Provider, Internal Medicine] Time of Disposition: 06:27
[2025-04-14] MEDS: MAGNESIUM SULF 2 GM/WATER 50ML 2 GM/50 ML BAG IVPB (06:19)
[2025-04-14 06:54] VITALS: BP 143/69; PULSE 53; RESP 18; O2SAT 100
--- NOTE | 2025-04-14 06:57 | PC.NURSE ---
Addendum entered by Pradip Campos RN 04/14/25 07:02: Correction ED nurse name is Chastity Merritt Original Note: Chastity Anders RN from ED gave report (Pradip Campos RN) with updates about patient health condition and diagnosis. [place] [facility] [phone].
--- NOTE | 2025-04-14 07:42 | PM.IMHP ---
H&P: HPI History of Present Illness Date/Time: 04/14/25 07:42 Chief Complaint: Lower GI bleed Narrative: 84-year-old female with history of hypertension, hyperlipidemia, dementia, GERD, hks-arcpqbb-vpkowmuby diabetes mellitus, hypertensive retinopathy, nonproliferative diabetic retinopathy, left eye posterior vitreous detachment, bilateral cataracts status post extraction with intra-ocular lens insertion, presents to [facility] ER due to lower GI bleed. Patient was recently admitted on 03/21/25 due to weakness, confusion, white spots and decreased vision on the right visual Flied. MRI was performed during that admission which showed Moderate-sized likely early subacute infarct with secondary gyral enhancement and some associated petechial hemorrhage in the left occipital lobe. Neurology was consulted and patient was started on clopidogrel 3 weeks ago during discharge in addition to aspirin. Yesterday at the senior care patient had bright red stool around 11:00 p.m. and was brought to ED. Called her son who reports patient do not have any major medical history including CAD or cancer. As per his son colonoscopy was performed by many years ago and no significant finding. In general patient lives by herself and uses cane for mobility. During the evaluation discussed with her son who agrees to holding aspirin and Plavix for now. Review of Systems Review of Systems: All systems are reviewed and are negative unless stated otherwise in the HPI. 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 Diverticulosis Rectal bleeding Black tarry stools Chest pain Sinusitis Lower extremity edema Nausea & vomiting Dementia Mild dementia GERD (gastroesophageal reflux disease) Urge urinary incontinence Essential hypertension Urinary tract infection High cholesterol Glaucoma Diabetes Chicken pox Arthritis Anemia Surgical History Surgical History Status post cataract extraction of both eyes with insertion of intraocular lens Hx of cholecystectomy (~1998) Family History Family History Father , 79 Heart attack Mother , 83 Heart attack Social History Social History Social History: She is and lives at home alone. 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 Smoking status: Former smoker Tobacco type: cigarettes Second hand tobacco smoke exposure: No Additional smoking assessment comments: Pt states she smoked for about 9years Alcohol intake: never Substance use: never Substance use type: does not use Do You Feel Safe in your Home?: Yes Lack of Transportation: No Lack of Food: Never True Current Housing: I Have Housing Concerned About Future Housing: No Difficulty Paying Gas/Electric Bills: No Difficulty Paying for Meds: No Currently Unemployed: No Education: Decline to Answer Difficulty w/ Childcare or Family Care: No Living arrangements: assisted living Gender identity (if verbalized by the patient): Female Spiritual care concerns: No Meds Home Medications and Allergies Home Medications ?Medication ?Instructions ?Recorded ?Confirmed ?Type acetaminophen 500 mg tablet 500 mg PO DAILY PRN Pain 09/15/19 04/14/25 History (Tylenol Extra Strength) aspirin 81 mg tablet 81 mg PO DAILY 12/04/20 04/14/25 History calcium carbonate (Antacid 200 mg PO BID PRN Heartburn 12/04/20 04/14/25 History (calcium carbonate)) oeiyakbv-elyb-klgk 8 mg-folic 400 1 tablet PO DAILY 12/04/20 04/14/25 History mcg-K 50 mcg-lutein 300 mcg tablet (Centrum Silver Women) metoprolol succinate 100 mg See Rx Instructions .Route 08/26/24 04/14/25 Rx tablet,extended release 24 hr .COMPLEX #90 tabs potassium chloride 20 mEq See Rx Instructions .Route 08/26/24 04/14/25 Rx tablet,extended release(part/cryst) .COMPLEX #90 tabs amlodipine 5 mg tablet See Rx Instructions .Route 09/25/24 04/14/25 Rx .COMPLEX #90 tabs metformin 1,000 mg tablet See Rx Instructions .Route 11/19/24 04/14/25 Rx .COMPLEX #180 tabs losartan 25 mg tablet 25 mg PO DAILY #90 tabs 12/08/24 04/14/25 Rx atorvastatin 40 mg tablet See Rx Instructions .Route 02/06/25 04/14/25 Rx .COMPLEX #90 tabs cephalexin 500 mg capsule 500 mg PO Q12HR #6 caps 03/24/25 04/14/25 Rx clopidogrel 75 mg tablet 75 mg PO QAM #90 tabs 03/24/25 04/14/25 Rx donepezil 10 mg tablet See Rx Instructions .Route 04/06/25 04/14/25 Rx .COMPLEX #90 tabs oxybutynin chloride 5 mg tablet See Rx Instructions .Route 04/06/25 04/14/25 Rx .COMPLEX #180 tabs Allergies Allergy/AdvReac Type Severity Reaction Status Date / Time codeine Allergy Unknown Unknown Verified 04/14/25 05:14 Vital Signs Vital Signs - 24 hr 04/14/25 05:05 04/14/25 05:25 04/14/25 06:54 Temperature 98.3 F Pulse Rate 57 L 61 53 L Respiratory Rate 18 20 18 Blood Pressure 124/91 H 124/91 H 143/69 H Pulse Oximetry 100 100 100 Oxygen Delivery Room Air Exam Narrative: General: Alert, awake, afebrile, in no acute distress. HEENT: PERRL, no rhinorrhea, no post nasal drip, oropharynx clear. Neck: Trachea midline, no JVD, no lymphadenopathy. Cardiovascular: Regular rate and rhythm, no murmurs, rubs or gallops, no peripheral edema. Respiratory: Clear to auscultation bilaterally, no tachypnea, no wheezing, no rhonchi, no rubs, no respiratory distress. Abdomen: Soft, nontender, nondistended, no rebound, no guarding, no peritoneal signs. Rectal: Good rectal tone, patient is passing large amount of small blood clots, bright red blood, no stool identified. Musculoskeletal: No joint swelling or deformity, normal muscle tone. Skin: No rashes or petechia, no signs of infection. Psychiatric: Alert and oriented, normal behavior and judgment for situation. Neurological: Alert and oriented to person, place, and time. Follows all commands. No focal deficits, speech is clear and fluent. H&P: Results Labs Labs: Short CBC 04/14/25 Range/Units 05:24 WBC 5.6 (4.5-10.0) K/mm3 Hgb 11.0 L (12.0-15.0) g/dL Hct 35.5 L (37.0-47.0) % Plt Count 286 (150-375) k/mm3 BMP 04/14/25 05:24 Sodium 138 Potassium 4.5 Chloride 106 Carbon Dioxide 24 BUN 19 H Creatinine 0.77 Glucose 126 H Calcium 9.4 Liver Function 04/14/25 Range/Units 05:24 Total Bilirubin 0.6 (0.2-1.3) mg/dL AST 27 (14-36) U/L ALT 15 (6-35) U/L Alkaline Phosphatase 84 (38-126) U/L Albumin 3.3 L (3.5-5.1) g/dL Assessment and Plan Assessment and plan (1) Acute lower GI bleeding: Code(s): K92.2 - Gastrointestinal hemorrhage, unspecified Status: Acute Assessment and Plan: PPI b.i.d. NPO Monitor H&H Transfuse blood if less than 7 No recent history of endoscopy/colonoscopy Home medication reveals use of clopidogrel and aspirin No evidence of anticoagulant GI consulted and appreciate recommendations (2) Diabetes mellitus: Qualifiers: Diabetes mellitus complication status: without complication Diabetes mellitus [facility] insulin use: without terminal block assembler use Diabetes mellitus type: type 2 Qualified Code(s): E11.9 - Type 2 diabetes mellitus without complications Code(s): E11.9 - Type 2 diabetes mellitus without complications Status: Acute Assessment and Plan: SSI Low-dose sliding scale Hypoglycemia protocol (3) HTN (hypertension): Qualifiers: Hypertension type: essential hypertension Qualified Code(s): I10 - Essential (primary) hypertension Code(s): I10 - Essential (primary) hypertension Status: Acute Assessment and Plan: hold losartan 25 mg p.o. q.d. hold metoprolol 100 mg p.o. q.d. hold amlodipine 5 mg p.o. q.d. (4) HLD (hyperlipidemia): Qualifiers: Hyperlipidemia type: mixed hyperlipidemia Qualified Code(s): E78.2 - Mixed hyperlipidemia Code(s): E78.5 - Hyperlipidemia, unspecified Status: Acute Assessment and Plan: Continue atorvastatin 40 mg p.o. q.d. (5) Bradycardia: Code(s): R00.1 - Bradycardia, unspecified Status: Acute Assessment and Plan: Hold metoprolol if necessary (6) CVA (cerebral vascular accident): Code(s): I63.9 - Cerebral infarction, unspecified Status: Acute Assessment and Plan: Hold aspirin and Plavix MRI 03/25/2025 :Moderate-sized likely early subacute infarct with secondary gyral enhancement and some associated petechial hemorrhage in the left occipital lobe. Plan Code status: Full code No DVT prophylaxis due to possible GI bleed
--- NOTE | 2025-04-14 08:51 | P.CONGI_ITS ---
Assessment and Plan Assessment and plan (1) Acute lower GI bleeding: Code(s): K92.2 - Gastrointestinal hemorrhage, unspecified Status: Acute (2) Normocytic anemia: Code(s): D64.9 - Anemia, unspecified Status: Acute Plan 1. Lower GI bleed/normocytic anemia: Last colonoscopy 10/18/2022 done for rectal bleeding showed diverticulosis but no signs of active bleeding. Patient was recent admitted (03/20-03/24) and diagnosed with a stroke and was started on Plavix in combination with aspirin 81 mg daily. Yesterday around 11 pm the patient had BRBPR and was brought to the ER from intermediate. Labs today show normal BMP and LFT's. WBC's 6, Hgb 11, Hct 36, MCV 85 and platelets 286. Labs last checked 03/24/2025 at which time Hgb 12. No BM since admission. * patient is a poor endoscopy candidate at this time given her recent stroke and newly started anticoagulant therapy, unless she continues to have active bleeding or H/H continues to drop we will take a more observational approach * Recommended hold anticoagulant today and tomorrow then restarting and monitor for bleeding * primary care team to continue monitoring H/H every 8 hrs and transfused as needed to keep Hgb >7 Thank you very much for allowing me to share in the care of this very nice patient. This report may have been done utilizing a voice recognition system. Attempts have been made to correct errors. However, there may be uncorrected grammatical, spelling, and recognition errors present. 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 Patient presented to the ER today from intermediate for rectal bleeding. GI consulted for lower GI bleed. Daughter Becka at bedside throughout the entire visit. Patient was recently admitted and diagnosed with a stroke on 03/21 she was discharged on aspirin 81 mg and Plavix daily. She was brought to the emergency room this morning after she was noted to have bright red blood with her bowel movement. She has had no bowel movements since admission. She denies any GI complaints. Denies abdominal pain, nausea, vomiting, bloating, odynophagia, dysphagia, reflux, regurgitation, appetite loss, or weight loss. 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 Denies diarrhea, constipation, hematochezia, melena, fecal incontinence, or rectal pain. Family history negative for CRC or IBD. She is a nondrinker nonsmoker and denies marijuana use. ENDOSCOPY HISTORY: EGD: Patient has never had an EGD COLONOSCOPY: 10/18/[address] Fagan for blood in stool Findings: multiple diverticula were present throughout the entire colon but mostly in the left side, no active bleeding no repeat colonoscopy recommended LABS AND STOOL STUDIES: Labs 04/14/2025: Sodium 138, potassium 4.5, BUN 19, creatinine 0.77, GFR >60, calcium 9.4 WBC 6, Hgb 11, Hct 36, MCV 85, platelets 286 Total bilirubin 0.6, AST 27, ALT 15, Alkaline Phos 84, albumin 3.3, lipase 254 IMAGING: No recent GI imaging Review of Systems 2 Constitutional: Constitutional: Reports as per HPI ENT: Reports as per HPI Cardiovascular: Cardiovascular: Reports as per HPI, Denies chest pain and Denies dyspnea Respiratory: Respiratory: Denies cough and Denies dyspnea Gastrointestinal: Gastrointestinal: Reports as per HPI Musculoskeletal: Musculoskeletal: Reports as per HPI Integumentary/Breasts: Skin/Breast: Reports as per HPI Psychiatric: Psychiatric: Reports as per HPI Endocrine: Endocrine: Reports no additional endocrine complaints Hematologic/Lymphatic: Hematologic/Lymphatic: Reports no additional hematologic/lymphatic complaints [facility] Past Medical History Medical History Acute left 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 stroke Diverticulosis Rectal bleeding Black tarry stools Chest pain Sinusitis Lower extremity edema Nausea & vomiting Dementia Mild dementia GERD (gastroesophageal reflux disease) Urge urinary incontinence Essential hypertension Urinary tract infection High cholesterol Glaucoma Diabetes Chicken pox Arthritis Anemia Surgical History Surgical History Status post cataract extraction of both eyes with insertion of intraocular lens Hx of cholecystectomy (~1998) Family History Family History Father , 79 Heart attack Mother , 83 Heart attack Social History Social History Social History: She is and lives at home alone. 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 Smoking status: Former smoker Tobacco type: cigarettes Second hand tobacco smoke exposure: No Additional smoking assessment comments: Pt states she smoked for about 9years Alcohol intake: never Substance use: never Substance use type: does not use Do You Feel Safe in your Home?: Yes Lack of Transportation: No Lack of Food: Never True Current Housing: I Have Housing Concerned About Future Housing: No Difficulty Paying Gas/Electric Bills: No Difficulty Paying for Meds: No Currently Unemployed: No Education: Decline to Answer Difficulty w/ Childcare or Family Care: No Living arrangements: assisted living Gender identity (if verbalized by the patient): Female Spiritual care concerns: No Meds Home Medications and Allergies Home Medications ?Medication ?Instructions ?Recorded ?Confirmed ?Type acetaminophen 500 mg tablet 500 mg PO DAILY PRN Pain 0 09/15/19 04/14/25 History (Tylenol Extra Strength) aspirin 81 mg tablet 81 mg PO DAILY 12/04/2003/21 History calcium carbonate (Antacid 200 mg PO BID PRN Heartburn 12/04/20 04/14/25 History (calcium carbonate)) [id number] 8 mg-folic 400 1 tablet PO DAILY 04/14/25 History mcg-K 50 mcg-lutein 300 mcg tablet (Centrum Silver Women) metoprolol succinate 100 mg See Rx Instructions .Route 08/26/24 04/14/25 Rx tablet,extended release 24 hr .COMPLEX #90 tabs potassium chloride 20 mEq See Rx Instructions .Route 0 08/26/24 04/14/25 Rx tablet,extended release(part/cryst) .COMPLEX #90 tabs amlodipine 5 mg tablet See Rx Instructions .Route 0 09/25/24 04/14/25 Rx .COMPLEX #90 tabs metformin 1,000 mg tablet See Rx Instructions .Route 0 11/19/24 04/14/25 Rx .COMPLEX #180 tabs losartan 25 mg tablet 25 mg PO DAILY #90 tabs 04/09/1304/14/25 Rx atorvastatin 40 mg tablet See Rx Instructions .Route 0 02/06/25 04/14/25 Rx .COMPLEX #90 tabs cephalexin 500 mg capsule 500 mg PO Q12HR #6 caps 01/1104/14/25 Rx clopidogrel 75 mg tablet 75 mg PO QAM #90 tabs 04/14/25 Rx donepezil 10 mg tablet See Rx Instructions .Route 0 04/06/25 04/14/25 Rx .COMPLEX #90 tabs oxybutynin chloride 5 mg tablet See Rx Instructions .R oute 04/06/25 04/14/25 Rx .COMPLEX #180 tabs Allergies Allergy/AdvReac Type Severity Reaction Status Date / Time codeine Allergy Unknown Unknown Verified 04/14/25 05:14 Vital Signs Vital Signs - 24 hr 04/14/25 05:05 04/14/25 05:25 04/14/25 06:54 Temperature 98.3 F Pulse Rate 57 L 61 53 L Respiratory Rate 18 20 18 Blood Pressure 124/91 H 124/91 H 143/69 H Pulse Oximetry 100 100 100 Oxygen Delivery Room Air Exam 2 Const: General: cooperative, healthy appearing, comfortable, no acute distress and well developed Orientation/consciousness: oriented to person, oriented to place, oriented to time and patient oriented x3 HENMT: Head: normal to inspection, normocephalic and atraumatic Mouth: Yes Normal oral and palatal mucosa present and Yes moist mucous membranes Eyes: General: appearance normal, both eyes and all related structures C onjunctivae: conjunctivae normal Sclera: sclerae normal Pupils: Equal, round and reactive pupils present Neck: Neck: normal visual inspection Chest: Chest palpation & inspection: normal inspection of the chest Resp: Effort & Inspection: normal respiratory effort and able to speak in complete sentences Auscultation: clear to auscultation bilaterally Cardio: Jugular venous distension: no JVD Rate: regular rate Rhythm: r egular rhythm Heart sounds: S1 normal heart sound present and S2 normal heart sound present GI: Inspection: normal to inspection GI Palp: Yes Soft to palpation and Yes No hepatosplenomegaly present Auscultation: normal bowel sounds Rectal Exam: deferred Skin: General skin exam: normal color and no rashes or lesions noted Neuro: General: oriented to person, oriented to place, oriented to time and patient oriented x3 Cranial nerves: Yes Equal, round and reactive pupils present Speech: normal speech Other: Mild right-sided weakness following recent stroke Extrem: General: normal to inspection and no clubbing, cyanosis or edema Psych: Appearance: grossly normal and well kempt Affect: normal affect Results Labs 04/14/25 05:24 04/14/25 05:24 Labs: Short CBC 04/14/25 Range/Units 05:24 WBC 5.6 (4.5-10.0) K/mm3 Hgb 11.0 L (12.0-15.0) g/dL Hct 35.5 L (37.0-47.0) % Plt Count 286 (150-375) k/mm3 BMP 04/14/25 05:24 Sodium 138 Potassium 4.5 Chloride 106 Carbon Dioxide 24 BUN 19 H Creatinine 0.77 Glucose 126 H Calcium 9.4 Liver Function 04/14/25 Range/Units 05:24 Total Bilirubin 0.6 (0.2-1.3) mg/dL AST 27 (14-36) U/L ALT 15 (6-35) U/L Alkaline Phosphatase 84 (38-126) U/L Albumin 3.3 L (3.5-5.1) g/dL
[2025-04-14] MEDS: SODIUM CHLORIDE 0.9% IV 1,000 ML 100 ML IV CONT (11:03)
[2025-04-14 12:00] VITALS: BP 98/50; PULSE 55; RESP 18; TEMP 35.9; O2SAT 100
[2025-04-14 14:22] LABS: Hematocrit 29.4 % (37.0-47.0); Hemoglobin 9.1 g/dL (12.0-15.0)
[2025-04-14] MEDS: ATORVASTATIN 40 MG TABLET PO (14:33)
[2025-04-14] MEDS: POTASSIUM CHLORIDE 20 MEQ ER TABLET PO (14:33)
[2025-04-14] MEDS: DONEPEZIL HCL 10 MG TABLET PO (14:33)
[2025-04-14 16:00] VITALS: BP 118/64; PULSE 64; RESP 18; TEMP 36.3; O2SAT 100
--- NOTE | 2025-04-14 18:52 | PC.NURSE ---
Miralax given as ordered with large results. BM brown with blood noted. Blodd work ordered to be repeated at 1999.
[2025-04-14] MEDS: PANTOPRAZOLE SODIUM IV 40 MG VIAL IV PUSH (20:44)
[2025-04-14 20:50] LABS: Hematocrit 26.7 % (37.0-47.0); Hemoglobin 8.3 g/dL (12.0-15.0)
[2025-04-14 21:25] VITALS: BP 93/45; PULSE 54; RESP 16; TEMP 36.6; O2SAT 100
[2025-04-15] VITALS (7 sets, daily range): BP systolic 81–107; BP diastolic 42–83; PULSE 54–66; RESP 16–24; TEMP 35.9–36.7; O2SAT 99–100
[2025-04-15] MEDS: ALBUMIN HUMAN 5% 250 ML IV CONT (01:25)
[2025-04-15] MEDS: POTASSIUM CHLORIDE 20 MEQ ER TABLET PO (08:54)
[2025-04-15] MEDS: PANTOPRAZOLE SODIUM IV 40 MG VIAL IV PUSH ×2 (08:55→21:06)
[2025-04-15] MEDS: DONEPEZIL HCL 10 MG TABLET PO (08:55)
[2025-04-15] MEDS: ATORVASTATIN 40 MG TABLET PO (08:55)
[2025-04-15 09:09] LABS: Hematocrit 26.3 % (37.0-47.0); Hemoglobin 8.0 g/dL (12.0-15.0); Mean Corpuscular HGB Conc 30.4 g/dl (32-36); Mean Corpuscular Hemoglobin 26.6 pg (26-34); Mean Corpuscular Volume 87.4 fl (80-100); Platelet Count Result 211 k/mm3 (150-375); Red Blood Count 3.01 M/mm3 (4.2-5.4); White Blood Count 4.8 K/mm3 (4.5-10.0)
[2025-04-15 09:58] LABS: Alanine Aminotransferase 17 U/L (6-35); Albumin Level 3.2 g/dL (3.5-5.1); Alkaline Phosphatase 74 U/L (38-126); Anion Gap 7 mmol/L (4-12); Aspartate Amino Transferase 24 U/L (14-36); Bilirubin,Total 0.5 mg/dL (0.2-1.3); Blood Urea Nitrogen 18 mg/dL (7-17); Calcium 8.9 mg/dL (8.4-10.2); Carbon Dioxide 22 mmol/L (22-30); Chloride 109 mmol/L (98-107); Estimated CRCL calculation 39 ml/min; Estimated Glomerular Filt Rate > 60; Glucose 154 mg/dL (65-110); Potassium 4.6 mmol/L (3.4-5.0); Sodium 138 mmol/L (137-145); Total Protein 5.6 g/dL (6.3-8.2)
--- NOTE | 2025-04-15 13:47 | P.PNIM_ITS ---
Progress Note: A&P Assessment and Plan (1) Acute lower GI bleeding: Code(s): K92.2 - Gastrointestinal hemorrhage, unspecified Status: Acute Assessment and Plan: PPI b.i.d. Started regular diet Monitor H&H Transfuse blood if less than 7 No recent history of endoscopy/colonoscopy Home medication reveals use of clopidogrel and aspirin No evidence of anticoagulant GI consulted and appreciate recommendations No acute intervention from GI (2) Diabetes mellitus: Qualifiers: Diabetes mellitus complication status: without complication Diabetes mellitus fdc insulin use: without intermediate manager use Diabetes mellitus type: type 2 Qualified Code(s): E11.9 - Type 2 diabetes mellitus without complications Code(s): E11.9 - Type 2 diabetes mellitus without complications Status: Acute Assessment and Plan: SSI Low-dose sliding scale Hypoglycemia protocol (3) HTN (hypertension): Qualifiers: Hypertension type: essential hypertension Qualified Code(s): I10 - Essential (primary) hypertension Code(s): I10 - Essential (primary) hypertension Status: Acute Assessment and Plan: hold losartan 25 mg p.o. q.d. hold metoprolol 100 mg p.o. q.d. hold amlodipine 5 mg p.o. q.d. (4) HLD (hyperlipidemia): Qualifiers: Hyperlipidemia type: mixed hyperlipidemia Qualified Code(s): E78.2 - Mixed hyperlipidemia Code(s): E78.5 - Hyperlipidemia, unspecified Status: Acute Assessment and Plan: Continue atorvastatin 40 mg p.o. q.d. (5) Bradycardia: Code(s): R00.1 - Bradycardia, unspecified Status: Acute Assessment and Plan: Hold metoprolol if necessary (6) CVA (cerebral vascular accident): Code(s): I63.9 - Cerebral infarction, unspecified Status: Acute Assessment and Plan: Hold aspirin and Plavix MRI 03/25/2025 :Moderate-sized likely early subacute infarct with secondary gyral enhancement and some associated petechial hemorrhage in the left occipital lobe. Plan Code status: Full code No DVT prophylaxis due to possible GI bleed Subjective Date/time seen: 04/15/25 13:47 Interval history: Patient still has evidence of bloody stool. Will continue monitor H and H Review of Systems Review of Systems: All systems are reviewed and are negative unless stated otherwise in the HPI. Exam Narrative: General: Alert, awake, afebrile, in no acute distress. HEENT: PERRL, no rhinorrhea, no post nasal drip, oropharynx clear. Neck: Trachea midline, no JVD, no lymphadenopathy. Cardiovascular: Regular rate and rhythm, no murmurs, rubs or gallops, no peripheral edema. Respiratory: Clear to auscultation bilaterally, no tachypnea, no wheezing, no rhonchi, no rubs, no respiratory distress. Abdomen: Soft, nontender, nondistended, no rebound, no guarding, no peritoneal signs. Rectal: Good rectal tone, patient is passing large amount of small blood clots, bright red blood, no stool identified. Musculoskeletal: No joint swelling or deformity, normal muscle tone. Skin: No rashes or petechia, no signs of infection. Psychiatric: Alert and oriented, normal behavior and judgment for situation. Neurological: Alert and oriented to person, place, and time. Follows all commands. No focal deficits, speech is clear and fluent. Objective Data Vital Signs Vital Signs: Vital Signs - 24 hr 04/14/25 16:00 04/14/25 20:44 04/14/25 21:25 Temperature 97.4 F L 97.8 F Pulse Rate 64 54 L Respiratory Rate 18 16 Blood Pressure 118/64 93/45 L Pulse Oximetry 100 100 Oxygen Delivery Room Air 04/15/25 00:45 04/15/25 04:45 04/15/25 08:00 Temperature 97.6 F 98.1 F 97.8 F Pulse Rate 57 L 54 L 66 Respiratory Rate 20 18 20 Blood Pressure 84/46 L 103/43 L 107/83 Pulse Oximetry 100 100 99 Oxygen Delivery 04/15/25 08:00 Temperature Pulse Rate Respiratory Rate Blood Pressure Pulse Oximetry Oxygen Delivery Room Air Intake/Output Intake/Output: Intake & Output 04/12/25 04/13/25 04/14/25 04/15/25 23:59 23:59 23:59 23:59 Intake Total 540 350 Balance 540 350 Meds/Results Medications: Active Medications Generic Name Dose Route Start Last Admin Trade Name Freq PRN Reason Stop Dose Admin Acetaminophen 500 mg 04/14/25 13:37 Acetaminophen 500 Mg Tablet PO DAILY PRN Pain Atorvastatin Calcium 40 mg 04/14/25 13:40 04/15/25 08:55 Atorvastatin 40 Mg Tablet PO 40 mg QAM ARTURO Administration Donepezil HCl 10 mg 04/14/25 13:40 04/15/25 08:55 Donepezil Hcl 10 Mg Tablet PO 10 mg QAM ARTURO Administration Oxybutynin Chloride 5 mg 04/14/25 21:00 04/14/25 20:44 Oxybutynin Chloride 5 Mg Tablet PO 5 mg On Hold: 04/15/25 01:10 Q12HR ARTURO Administration Pantoprazole Sodium 40 mg 04/14/25 21:00 04/15/25 08:55 Pantoprazole Sodium Iv 40 Mg Vial IV PUSH 40 mg Q12HR ARTURO Administration Polyethylene Glycol 17 gm 04/14/25 17:00 04/15/25 08:54 Polyethylene Glycol 3350 17 Gm Powd.Pack PO Not Given BID ARTURO Potassium Chloride 20 meq 04/14/25 13:45 04/15/25 08:54 Potassium Chloride 20 Meq Er Tablet PO 20 meq QAM ARTURO Administration Labs Labs: Laboratory Results - last 24 hr 04/14/25 04/14/25 04/14/25 14:06 17:12 20:36 WBC RBC Hgb 9.1 L 8.3 L Hct 29.4 L 26.7 L MCV MCH MCHC RDW Plt Count MPV Sodium Potassium Chloride Carbon Dioxide Anion Gap BUN Creatinine Estim Creat Clear Calc Estimated GFR Glucose POC Capillary Glucose 133 H Calcium Total Bilirubin AST ALT Alkaline Phosphatase Total Protein Albumin 04/14/25 04/15/25 04/15/25 21:31 08:07 09:04 WBC 4.8 RBC 3.01 L Hgb 8.0 L Hct 26.3 L MCV 87.4 MCH 26.6 MCHC 30.4 L RDW 15.4 H Plt Count 211 MPV 10.3 Sodium 138 Potassium 4.6 Chloride 109 H Carbon Dioxide 22 Anion Gap 7 BUN 18 H Creatinine 0.83 Estim Creat Clear Calc 39 Estimated GFR > 60 Glucose 154 H POC Capillary Glucose 180 H 123 H Calcium 8.9 Total Bilirubin 0.5 AST 24 ALT 17 Alkaline Phosphatase 74 Total Protein 5.6 L Albumin 3.2 L 04/15/25 11:45 WBC RBC Hgb Hct MCV MCH MCHC RDW Plt Count MPV Sodium Potassium Chloride Carbon Dioxide Anion Gap BUN Creatinine Estim Creat Clear Calc Estimated GFR Glucose POC Capillary Glucose 143 H Calcium Total Bilirubin AST ALT Alkaline Phosphatase Total Protein Albumin Hospitalist [facility] Advance Care Plan I have confirmed that the patient's Advanced Care Plan is present, code status is documented, or surrogate decision maker is listed in patient medical record.: Yes Medication Reconciliation I have utilized all available resources to obtain, update and review the patients current medications (includes all prescriptions, OTC, herbals, cannabis, and nutritional supplements).: Yes
--- NOTE | 2025-04-15 16:16 | P.PNGI_ITS ---
Progress Note: A&P Assessment and Plan (1) Acute lower GI bleeding: Code(s): K92.2 - Gastrointestinal hemorrhage, unspecified Status: Acute Assessment and Plan: This patient was admitted for episodes of lower gastrointestinal bleeding. The most likely cause is diverticular disease, based on the findings from her recent colonoscopy. Her dual antiplatelet regimen of aspirin and Plavix has been temporarily discontinued. Her clinical status is being closely monitored, with a focus on her hemodynamic stability and serial hematocrit levels. She is being treated with MiraLax twice a day to encourage bowel movements, which will help us assess for the cessation of bleeding. Discharge is planned once her stool output normalizes (goal : normal color stools) , indicating that the bleeding has resolved. Subjective Date/time seen: 04/15/25 16:16 Interval history: The patient is feeling well and remains hemodynamically stable, with no signs of hypotension or tachycardia. She had a single maroon bowel movement this morning. Her hemoglobin levels have trended as follows: * 04/14/2025, 2:00 PM: 9.1 g/dL * 04/14/2025, 8:00 PM: 8.3 g/dL * 04/15/2025, 9:00 AM: 8.0 g/dL She is tolerating a regular diet and reports no further symptoms.. Review of Systems Review of Systems: All systems reviewed & are unremarkable except as noted in HPI and below Objective Data Vital Signs Vital Signs: Vital Signs - 24 hr 04/14/25 20:44 04/14/25 21:25 04/15/25 00:45 Temperature 97.8 F 97.6 F Pulse Rate 54 L 57 L Respiratory Rate 16 20 Blood Pressure 93/45 L 84/46 L Pulse Oximetry 100 100 Oxygen Delivery Room Air 04/15/25 04:45 04/15/25 08:00 04/15/25 08:00 Temperature 98.1 F 97.8 F Pulse Rate 54 L 66 Respiratory Rate 18 20 Blood Pressure 103/43 L 107/83 Pulse Oximetry 100 99 Oxygen Delivery Room Air 04/15/25 12:00 Temperature 96.6 F L Pulse Rate 64 Respiratory Rate 24 H Blood Pressure 106/42 L Pulse Oximetry 100 Oxygen Delivery Intake/Output Intake/Output: Intake & Output 04/12/25 04/13/25 04/14/25 04/15/25 23:59 23:59 23:59 23:59 Intake Total 540 370 Balance 540 370 Meds/Results Medications: Active Medications Generic Name Dose Route Start Last Admin Trade Name Stefani PRN Reason Stop Dose Admin Acetaminophen 500 mg 04/14/25 13:37 Acetaminophen 500 Mg Tablet PO DAILY PRN Pain Atorvastatin Calcium 40 mg 04/14/25 13:40 04/15/25 08:55 Atorvastatin 40 Mg Tablet PO 40 mg QAM ARTURO Administration Donepezil HCl 10 mg 04/14/25 13:40 04/15/25 08:55 Donepezil Hcl 10 Mg Tablet PO 10 mg QAM ARTURO Administration Oxybutynin Chloride 5 mg 04/14/25 21:00 04/14/25 20:44 Oxybutynin Chloride 5 Mg Tablet PO 5 mg On Hold: 04/15/25 01:10 Q12HR ARTURO Administration Pantoprazole Sodium 40 mg 04/14/25 21:00 04/15/25 08:55 Pantoprazole Sodium Iv 40 Mg Vial IV PUSH 40 mg Q12HR ARTURO Administration Polyethylene Glycol 17 gm 04/14/25 17:00 04/15/25 08:54 Polyethylene Glycol 3350 17 Gm Powd.Pack PO Not Given BID ARTURO Potassium Chloride 20 meq 04/14/25 13:45 04/15/25 08:54 Potassium Chloride 20 Meq Er Tablet PO 20 meq QAM ARTURO Administration Labs Labs: Laboratory Results - last 24 hr 04/14/25 04/14/25 04/14/25 17:12 20:36 21:31 WBC RBC Hgb 8.3 L Hct 26.7 L MCV MCH MCHC RDW Plt Count MPV Sodium Potassium Chloride Carbon Dioxide Anion Gap BUN Creatinine Estim Creat Clear Calc Estimated GFR Glucose POC Capillary Glucose 133 H 180 H Calcium Total Bilirubin AST ALT Alkaline Phosphatase Total Protein Albumin 04/15/25 04/15/25 04/15/25 08:07 09:04 11:45 WBC 4.8 RBC 3.01 L Hgb 8.0 L Hct 26.3 L MCV 87.4 MCH 26.6 MCHC 30.4 L RDW 15.4 H Plt Count 211 MPV 10.3 Sodium 138 Potassium 4.6 Chloride 109 H Carbon Dioxide 22 Anion Gap 7 BUN 18 H Creatinine 0.83 Estim Creat Clear Calc 39 Estimated GFR > 60 Glucose 154 H POC Capillary Glucose 123 H 143 H Calcium 8.9 Total Bilirubin 0.5 AST 24 ALT 17 Alkaline Phosphatase 74 Total Protein 5.6 L Albumin 3.2 L
[2025-04-15 19:58] LABS: Hematocrit 21.6 % (37.0-47.0)
[2025-04-15 20:06] LABS: Hemoglobin 6.9 g/dL (12.0-15.0)
[2025-04-16] VITALS (18 sets, daily range): BP systolic 88–139; BP diastolic 38–89; PULSE 56–85; RESP 16–26; TEMP 35.8–37.1; O2SAT 92–100
[2025-04-16] MEDS: SODIUM CHLORIDE 0.9% IV 250 ML 30 ML IV CONT ×2 (00:25→16:28)
[2025-04-16 06:10] LABS: Hematocrit 24.7 % (37.0-47.0); Hemoglobin 7.7 g/dL (12.0-15.0)
--- NOTE | 2025-04-16 06:59 | WPDGIPROGNO ---
Progress Note: A&P Assessment and Plan (1) Acute lower GI bleeding: Code(s): K92.2 - Gastrointestinal hemorrhage, unspecified Status: Acute Assessment and Plan: This patient has a known history of diverticular disease, confirmed by a colonoscopy in 2022. She was admitted with acute, [id number] lower GI bleeding and is currently under observation. She continues to pass red blood per rectum but remains hemodynamically stable. A colonoscopy is not indicated at this time. First, she recently suffered a stroke, making the procedure a higher risk for anesthesia. Second, the chances of an active bleeding diverticulum being identified is very low. It is important to note that she is still under the pharmacologic influence of Plavix and aspirin, which were discontinued upon admission. We anticipate that the bleeding episode will self-limit over the next few hours as the effects of the antiplatelet medications wear off. We will continue to closely monitor her clinical status. If she becomes hemodynamically unstable, a CT angiogram will be indicated to localize the bleeding. If a CT angiogram is needed, she will be transferred to another hospital for an angiogram and embolization, which typically does not require general anesthesia. Subjective Date/time seen: 04/16/25 06:59 Interval history: The patient continues to pass dark blood per rectum. However, her vital signs remain stable, with a consistent systolic blood pressure of around 120 and a pulse between 60 and 70. Her hemoglobin was 6.9 g/dL as of 7:00 PM on 04/15. Following the transfusion of one unit of packed red blood cells this morning, her hemoglobin has risen to 7.7 g/dL. Objective Data Vital Signs Vital Signs: Vital Signs - 24 hr 04/15/25 08:00 04/15/25 08:04/15/25 12:00 Temperature 97.8 F 96.6 F L Pulse Rate 66 64 Respiratory Rate 20 24 H Blood Pressure 107/83 106/42 L Pulse Oximetry 99 100 Oxygen Delivery Room Air 04/15/25 16:00 04/15/25 21:06 04/15/25 21:55 Temperature 97.4 F L 96.6 F L Pulse Rate 62 64 Respiratory Rate 20 16 Blood Pressure 95/49 L 81/55 L Pulse Oximetry 99 99 Oxygen Delivery Room Air 04/15/25 23:07 04/16/25 00:00 04/16/25 00:02 Temperature 97.5 F L 97.6 F Pulse Rate 62 56 L Respiratory Rate 20 18 Blood Pressure 94/45 L 94/38 L Pulse Oximetry 99 100 100 Oxygen Delivery Room Air 04/16/25 00:21 04/16/25 00:25 04/16/25 02:25 Temperature 97.5 F L 97 F L 97.3 F L Pulse Rate 64 63 71 Respiratory Rate 18 20 24 H Blood Pressure 99/60 L 118/59 L 124/69 Pulse Oximetry 100 100 99 Oxygen Delivery 04/16/25 02:25 04/16/25 04:25 04/16/25 05:30 Temperature 97.2 F L 96.5 F L 97.9 F Pulse Rate 59 L 61 62 Respiratory Rate 26 H 24 H 20 Blood Pressure 101/47 L 100/53 L 120/61 Pulse Oximetry 98 100 100 Oxygen Delivery Intake/Output Intake/Output: Intake & Output 04/13/25 04/14/25 04/15/25 04/16/25 23:59 23:59 23:59 23:59 Intake Total 540 850 631 Balance 540 850 631 Meds/Results Medications: Active Medications Generic Name Dose Route Start Last Admin Trade Name Freq PRN Reason Stop Dose Admin Acetaminophen 500 mg 04/14/25 13:37 Acetaminophen 500 Mg Tablet PO DAILY PRN Pain Atorvastatin Calcium 40 mg 04/14/25 13:40 04/15/25 08:55 Atorvastatin 40 Mg Tablet PO 40 mg QAM ARTURO Administration Donepezil HCl 10 mg 04/14/25 13:40 04/15/25 08:55 Donepezil Hcl 10 Mg Tablet PO 10 mg QAM ARTURO Administration Oxybutynin Chloride 5 mg 04/14/25 21:00 04/14/25 20:44 Oxybutynin Chloride 5 Mg Tablet PO 5 mg On Hold: 04/15/25 01:10 Q12HR ARTURO Administration Pantoprazole Sodium 40 mg 04/14/25 21:00 04/15/25 21:06 Pantoprazole Sodium Iv 40 Mg Vial IV PUSH 40 mg Q12HR ARTURO Administration Polyethylene Glycol 17 gm 04/14/25 17:00 04/15/25 17:58 Polyethylene Glycol 3350 17 Gm Powd.Pack PO 17 gm BID ARTURO Administration Potassium Chloride 20 meq 04/14/25 13:45 04/15/25 08:54 Potassium Chloride 20 Meq Er Tablet PO 20 meq QAM ARTURO Administration Labs Labs: Laboratory Results - last 24 hr 04/14/25 04/15/25 04/15/25 05:24 08:07 09:04 WBC 4.8 RBC 3.01 L Hgb 8.0 L Hct 26.3 L MCV 87.4 MCH 26.6 MCHC 30.4 L RDW 15.4 H Plt Count 211 MPV 10.3 Sodium 138 Potassium 4.6 Chloride 109 H Carbon Dioxide 22 Anion Gap 7 BUN 18 H Creatinine 0.83 Estim Creat Clear Calc 39 Estimated GFR > 60 Glucose 154 H POC Capillary Glucose 123 H Calcium 8.9 Total Bilirubin 0.5 AST 24 ALT 17 Alkaline Phosphatase 74 Total Protein 5.6 L Albumin 3.2 L Blood Type B Positive Antibody Screen Negative Crossmatch See Detail 04/15/25 04/15/25 04/15/25 11:45 16:44 19:49 WBC RBC Hgb 6.9 L* Hct 21.6 L MCV MCH MCHC RDW Plt Count MPV Sodium Potassium Chloride Carbon Dioxide Anion Gap BUN Creatinine Estim Creat Clear Calc Estimated GFR Glucose POC Capillary Glucose 143 H 171 H Calcium Total Bilirubin AST ALT Alkaline Phosphatase Total Protein Albumin Blood Type Antibody Screen Crossmatch 04/15/25 04/16/25 22:00 05:38 WBC RBC Hgb 7.7 L Hct 24.7 L MCV MCH MCHC RDW Plt Count MPV Sodium Potassium Chloride Carbon Dioxide Anion Gap BUN Creatinine Estim Creat Clear Calc Estimated GFR Glucose POC Capillary Glucose 164 H Calcium Total Bilirubin AST ALT Alkaline Phosphatase Total Protein Albumin Blood Type Antibody Screen Crossmatch
[2025-04-16] MEDS: PANTOPRAZOLE SODIUM IV 40 MG VIAL IV PUSH ×2 (08:51→20:51)
[2025-04-16] MEDS: ATORVASTATIN 40 MG TABLET PO (08:51)
[2025-04-16] MEDS: DONEPEZIL HCL 10 MG TABLET PO (08:51)
[2025-04-16] MEDS: POTASSIUM CHLORIDE 20 MEQ ER TABLET PO (08:51)
--- NOTE | 2025-04-16 12:26 | P.PNIM_ITS ---
Progress Note: A&P Assessment and Plan (1) Acute lower GI bleeding: Code(s): K92.2 - Gastrointestinal hemorrhage, unspecified Status: Acute Assessment and Plan: PPI b.i.d. Started regular diet Monitor H&H Transfuse blood if less than 7 No recent history of endoscopy/colonoscopy Home medication reveals use of clopidogrel and aspirin No evidence of anticoagulant GI consulted and appreciate recommendations No acute intervention from GI Patient will be transferred to tertiary care hospital if she needs angiogram (2) Diabetes mellitus: Qualifiers: Diabetes mellitus complication status: without complication Diabetes mellitus residential insulin use: without residential use Diabetes mellitus type: type 2 Qualified Code(s): E11.9 - Type 2 diabetes mellitus without complications Code(s): E11.9 - Type 2 diabetes mellitus without complications Status: Acute Assessment and Plan: SSI Low-dose sliding scale Hypoglycemia protocol (3) HTN (hypertension): Qualifiers: Hypertension type: essential hypertension Qualified Code(s): I10 - Essential (primary) hypertension Code(s): I10 - Essential (primary) hypertension Status: Acute Assessment and Plan: hold losartan 25 mg p.o. q.d. hold metoprolol 100 mg p.o. q.d. hold amlodipine 5 mg p.o. q.d. (4) HLD (hyperlipidemia): Qualifiers: Hyperlipidemia type: mixed hyperlipidemia Qualified Code(s): E78.2 - Mixed hyperlipidemia Code(s): E78.5 - Hyperlipidemia, unspecified Status: Acute Assessment and Plan: Continue atorvastatin 40 mg p.o. q.d. (5) Bradycardia: Code(s): R00.1 - Bradycardia, unspecified Status: Acute Assessment and Plan: Hold metoprolol if necessary (6) CVA (cerebral vascular accident): Code(s): I63.9 - Cerebral infarction, unspecified Status: Acute Assessment and Plan: Hold aspirin and Plavix MRI 03/25/2025 :Moderate-sized likely early subacute infarct with secondary gyral enhancement and some associated petechial hemorrhage in the left occipital lobe. Plan Code status: Full code No DVT prophylaxis due to possible GI bleed Subjective Date/time seen: 04/16/25 12:26 Interval history: Patient had episode of hemoglobin 6.9 yesterday night and was given 1 unit PRBC. Will repeat the H&H at 4:00 p.m.. Patient is followed by GI who recommends CT angiogram if her hemodynamic status worsens. If patient needs CT angiogram she needs to be transferred to tertiary care hospital. Son agrees with the plan Review of Systems Review of Systems: All systems are reviewed and are negative unless stated otherwise in the HPI. Exam Narrative: General: Alert, awake, afebrile, in no acute distress. HEENT: PERRL, no rhinorrhea, no post nasal drip, oropharynx clear. Neck: Trachea midline, no JVD, no lymphadenopathy. Cardiovascular: Regular rate and rhythm, no murmurs, rubs or gallops, no peripheral edema. Respiratory: Clear to auscultation bilaterally, no tachypnea, no wheezing, no rhonchi, no rubs, no respiratory distress. Abdomen: Soft, nontender, nondistended, no rebound, no guarding, no peritoneal signs. Rectal: Good rectal tone, patient is passing large amount of small blood clots, bright red blood, no stool identified. Musculoskeletal: No joint swelling or deformity, normal muscle tone. Skin: No rashes or petechia, no signs of infection. Psychiatric: Alert and oriented, normal behavior and judgment for situation. Neurological: Alert and oriented to person, place, and time. Follows all commands. No focal deficits, speech is clear and fluent. Objective Data Vital Signs Vital Signs: Vital Signs - 24 hr 04/15/25 16:00 04/15/25 21:06 04/15/25 21:55 Temperature 97.4 F L 96.6 F L Pulse Rate 62 64 Respiratory Rate 20 16 Blood Pressure 95/49 L 81/55 L Pulse Oximetry 99 99 Oxygen Delivery Room Air 04/15/25 23:07 04/16/25 00:00 04/16/25 00:02 Temperature 97.5 F L 97.6 F Pulse Rate 62 56 L Respiratory Rate 20 18 Blood Pressure 94/45 L 94/38 L Pulse Oximetry 99 100 100 Oxygen Delivery Room Air 04/16/25 00:21 04/16/25 00:25 04/16/25 02:25 Temperature 97.5 F L 97 F L 97.3 F L Pulse Rate 64 63 71 Respiratory Rate 18 20 24 H Blood Pressure 99/60 L 118/59 L 124/69 Pulse Oximetry 100 100 99 Oxygen Delivery 04/16/25 02:25 04/16/25 04:25 04/16/25 05:30 Temperature 97.2 F L 96.5 F L 97.9 F Pulse Rate 59 L 61 62 Respiratory Rate 26 H 24 H 20 Blood Pressure 101/47 L 100/53 L 120/61 Pulse Oximetry 98 100 100 Oxygen Delivery 04/16/25 08:00 04/16/25 08:51 Temperature 98.6 F Pulse Rate 70 Respiratory Rate 20 Blood Pressure 109/47 L Pulse Oximetry 100 Oxygen Delivery Room Air Intake/Output Intake/Output: Intake & Output 04/13/25 04/14/25 04/15/25 04/16/25 23:59 23:59 23:59 23:59 Intake Total 540 850 751 Balance 540 850 751 Meds/Results Medications: Active Medications Generic Name Dose Route Start Last Admin Trade Name Freq PRN Reason Stop Dose Admin Acetaminophen 500 mg 04/14/25 13:37 Acetaminophen 500 Mg Tablet PO DAILY PRN Pain Atorvastatin Calcium 40 mg 04/14/25 13:40 04/16/25 08:51 Atorvastatin 40 Mg Tablet PO 40 mg QAM ARTURO Administration Donepezil HCl 10 mg 04/14/25 13:40 04/16/25 08:51 Donepezil Hcl 10 Mg Tablet PO 10 mg QAM ARTURO Administration Oxybutynin Chloride 5 mg 04/14/25 21:00 04/14/25 20:44 Oxybutynin Chloride 5 Mg Tablet PO 5 mg On Hold: 04/15/25 01:10 Q12HR ARTURO Administration Pantoprazole Sodium 40 mg 04/14/25 21:00 04/16/25 08:51 Pantoprazole Sodium Iv 40 Mg Vial IV PUSH 40 mg Q12HR ARTURO Administration Polyethylene Glycol 17 gm 04/14/25 17:00 04/16/25 08:51 Polyethylene Glycol 3350 17 Gm Powd.Pack PO Not Given BID ARTURO Potassium Chloride 20 meq 04/14/25 13:45 04/16/25 08:51 Potassium Chloride 20 Meq Er Tablet PO 20 meq QAM ARTURO Administration Labs Labs: Laboratory Results - last 24 hr 04/14/25 04/15/25 04/15/25 05:24 11:45 16:44 Hgb Hct POC Capillary Glucose 143 H 171 H Blood Type B Positive Antibody Screen Negative Crossmatch See Detail 04/15/25 04/15/25 04/16/25 19:49 22:00 05:38 Hgb 6.9 L* 7.7 L Hct 21.6 L 24.7 L POC Capillary Glucose 164 H Blood Type Antibody Screen Crossmatch 04/16/25 04/16/25 08:03 12:03 Hgb Hct POC Capillary Glucose 144 H 249 H Blood Type Antibody Screen Crossmatch Hospitalist MIPS Advance Care Plan I have confirmed that the patient's Advanced Care Plan is present, code status is documented, or surrogate decision maker is listed in patient medical record.: Yes Medication Reconciliation I have utilized all available resources to obtain, update and review the patients current medications (includes all prescriptions, OTC, herbals, cannabis, and nutritional supplements).: Yes
[2025-04-16 15:32] LABS: Hematocrit 21.4 % (37.0-47.0); Mean Corpuscular HGB Conc 31.8 g/dl (32-36); Mean Corpuscular Hemoglobin 27.3 pg (26-34); Mean Corpuscular Volume 85.9 fl (80-100); Platelet Count Result 167 k/mm3 (150-375); Red Blood Count 2.49 M/mm3 (4.2-5.4); White Blood Count 8.0 K/mm3 (4.5-10.0)
[2025-04-16 15:35] LABS: Hemoglobin 6.8 g/dL (12.0-15.0)
[2025-04-16 15:39] LABS: Alanine Aminotransferase 15 U/L (6-35); Albumin Level 2.6 g/dL (3.5-5.1); Alkaline Phosphatase 67 U/L (38-126); Anion Gap 3 mmol/L (4-12); Aspartate Amino Transferase 20 U/L (14-36); Bilirubin,Total 0.3 mg/dL (0.2-1.3); Blood Urea Nitrogen 27 mg/dL (7-17); Calcium 8.6 mg/dL (8.4-10.2); Carbon Dioxide 22 mmol/L (22-30); Chloride 110 mmol/L (98-107); Estimated CRCL calculation 34 ml/min; Estimated Glomerular Filt Rate 54; Glucose 232 mg/dL (65-110); Potassium 4.5 mmol/L (3.4-5.0); Sodium 135 mmol/L (137-145); Total Protein 4.9 g/dL (6.3-8.2)
[2025-04-16] MEDS: TUBING, BLOOD PLUM PUMP TUBING 1 EACH XX (16:28)
[2025-04-16 20:39] LABS: Hematocrit 24.4 % (37.0-47.0); Hemoglobin 7.8 g/dL (12.0-15.0)
[2025-04-16] MEDS: MIDODRINE HCL 10 MG TABLET PO (21:41)
[2025-04-17] VITALS (7 sets, daily range): BP systolic 90–140; BP diastolic 48–65; PULSE 62–77; RESP 14–24; TEMP 36–37.1; O2SAT 100
[2025-04-17 06:02] LABS: Hematocrit 25.0 % (37.0-47.0); Hemoglobin 7.9 g/dL (12.0-15.0); Mean Corpuscular HGB Conc 31.6 g/dl (32-36); Mean Corpuscular Hemoglobin 27.7 pg (26-34); Mean Corpuscular Volume 87.7 fl (80-100); Platelet Count Result 174 k/mm3 (150-375); Red Blood Count 2.85 M/mm3 (4.2-5.4); White Blood Count 6.6 K/mm3 (4.5-10.0)
[2025-04-17 06:59] LABS: Alanine Aminotransferase 13 U/L (6-35); Albumin Level 2.7 g/dL (3.5-5.1); Alkaline Phosphatase 65 U/L (38-126); Anion Gap 2 mmol/L (4-12); Aspartate Amino Transferase 21 U/L (14-36); Bilirubin,Total 0.4 mg/dL (0.2-1.3); Blood Urea Nitrogen 24 mg/dL (7-17); Calcium 8.8 mg/dL (8.4-10.2); Carbon Dioxide 23 mmol/L (22-30); Chloride 112 mmol/L (98-107); Estimated CRCL calculation 37 ml/min; Estimated Glomerular Filt Rate 60; Glucose 139 mg/dL (65-110); Potassium 3.8 mmol/L (3.4-5.0); Sodium 137 mmol/L (137-145); Total Protein 5.0 g/dL (6.3-8.2)
[2025-04-17] MEDS: ATORVASTATIN 40 MG TABLET PO (08:48)
[2025-04-17] MEDS: PANTOPRAZOLE SODIUM IV 40 MG VIAL IV PUSH ×2 (08:48→21:03)
[2025-04-17] MEDS: DONEPEZIL HCL 10 MG TABLET PO (08:48)
[2025-04-17] MEDS: POTASSIUM CHLORIDE 20 MEQ ER TABLET PO (08:49)
--- NOTE | 2025-04-17 09:04 | PCPTNOTE ---
Addendum entered by Eva Grimm, PT 04/17/25 11:20: Spoke with hospitalist again. OK to remove therapy orders at this time. Original Note: Spoke with current hospitalist. Per hospitalist, do not see pt this date due to being hemodynamically unstable. Nursing aware.
[2025-04-17 14:52] LABS: Hematocrit 24.7 % (37.0-47.0); Hemoglobin 7.8 g/dL (12.0-15.0)
--- NOTE | 2025-04-17 15:11 | P.PNGI_ITS ---
Progress Note: A&P Assessment and Plan (1) Acute lower GI bleeding: Code(s): K92.2 - Gastrointestinal hemorrhage, unspecified Status: Acute Assessment and Plan: probably diverticular source based on previous colonoscopy about 2 years ago received one more unit prbc high risk for anesthesia, plavix on hold now (recent CVA) agree to transfer for evaluation for IR embolization if evidence of ongoing bleeding (2) Acute on chronic anemia: Code(s): D64.9 - Anemia, unspecified Status: Acute (3) CVA (cerebral vascular accident): Code(s): I63.9 - Cerebral infarction, unspecified Status: Acute (4) Blood thinned due to long-term anticoagulant use: Code(s): Z79.01 - correction (current) use of anticoagulants Status: Acute (5) Colon, diverticulosis: Code(s): K57.30 - Diverticulosis of large intestine without perforation or abscess without bleeding Status: Acute Subjective Date/time seen: 04/17/25 15:11 Interval history: comfortable but soft BP Review of Systems Review of Systems: All systems reviewed & are unremarkable except as noted in HPI and below Exam Const: General: comfortable and no acute distress Other: pleasant elderly HENMT: Face/Nose/Sinus: Normal nares present Eyes: General: appearance normal, both eyes and all related structures Neck: Neck: supple Resp: Auscultation: clear to auscultation bilaterally Cardio: Rate: regular rate Rhythm: regular rhythm GI: Inspection: non-distended GI Palp: Yes Soft to palpation and No Tenderness to palpation present (GI) Skin: General skin exam: no rashes or lesions noted Neuro: Speech: normal speech Extrem: General: normal to inspection Psych: Mental Status: mental status grossly normal Objective Data Vital Signs Vital Signs: Vital Signs - 24 hr 04/16/25 16:00 04/16/25 16:10 04/16/25 16:25 Temperature 98.2 F 98.2 F 98.2 F Pulse Rate 85 85 85 Respiratory Rate 20 20 20 Blood Pressure 105/83 105/85 105/85 Pulse Oximetry 100 100 100 Oxygen Delivery 04/16/25 16:39 04/16/25 17:39 04/16/25 18:39 Temperature 98.4 F 97.7 F 98.2 F Pulse Rate 77 76 78 Respiratory Rate 20 20 20 Blood Pressure 98/70 L 113/69 98/55 L Pulse Oximetry 100 100 100 Oxygen Delivery 04/16/25 19:20 04/16/25 20:00 04/16/25 23:00 Temperature 98.8 F 97.2 F L 97.7 F Pulse Rate 73 71 65 Respiratory Rate 20 16 20 Blood Pressure 94/60 L 88/60 L 101/50 L Pulse Oximetry 100 92 100 Oxygen Delivery 04/17/25 00:00 04/17/25 00:53 04/17/25 04:00 Temperature 96.8 F L 98.8 F Pulse Rate 67 66 Respiratory Rate 24 H 14 Blood Pressure 97/49 L 90/64 L 100/48 L Pulse Oximetry 100 100 Oxygen Delivery 04/17/25 08:00 04/17/25 08:00 04/17/25 12:00 Temperature 97.8 F 98.4 F Pulse Rate 73 62 Respiratory Rate 18 18 Blood Pressure 140/65 100/62 Pulse Oximetry 100 100 Oxygen Delivery Room Air Intake/Output Intake/Output: Intake & Output 04/14/25 04/15/25 04/16/25 04/17/25 23:59 23:59 23:59 23:59 Intake Total 540 1100 1451 660 Balance 540 1100 1451 660 Meds/Results Medications: Active Medications Generic Name Dose Route Start Last Admin Trade Name Freq PRN Reason Stop Dose Admin Acetaminophen 500 mg 04/14/25 13:37 Acetaminophen 500 Mg Tablet PO DAILY PRN Pain Atorvastatin Calcium 40 mg 04/14/25 13:40 04/17/25 08:48 Atorvastatin 40 Mg Tablet PO 40 mg QAM ARTURO Administration Dextrose 12.5 gm 04/16/25 15:02 Dextrose 50% 25 Gm/50 Ml Syringe IV PUSH PRN PRN Hypoglycemia Protocol Donepezil HCl 10 mg 04/14/25 13:40 04/17/25 08:48 Donepezil Hcl 10 Mg Tablet PO 10 mg QAM ARTURO Administration Glucagon 1 mg 04/16/25 15:02 Glucagon For Inj 1 Mg Vial IM PRN PRN Hypoglycemia Protocol Glucose 15 gm 04/16/25 15:02 Glucose Oral Gel 15 Gm Of Glucse In 37.5 Gm Tube PO PRN PRN Hypoglycemia Protocol Dextrose 1,000 mls @ 100 mls/hr 04/16/25 15:02 Dextrose 5% 1,000 Ml IVPB PRN PRN Hypoglycemia Protocol Insulin Aspart 2 - 5 units 04/16/25 17:00 04/17/25 12:08 Insulin Aspart (*Bkc) 100 Units/Ml SUB-Q Not Given [facility] Protocol Oxybutynin Chloride 5 mg 04/14/25 21:00 04/14/25 20:44 Oxybutynin Chloride 5 Mg Tablet PO 5 mg On Hold: 04/15/25 01:10 Q12HR ARTURO Administration Pantoprazole Sodium 40 mg 04/14/25 21:00 04/17/25 08:48 Pantoprazole Sodium Iv 40 Mg Vial IV PUSH 40 mg Q12HR ARTURO Administration Polyethylene Glycol 17 gm 04/14/25 17:00 04/17/25 08:50 Polyethylene Glycol 3350 17 Gm Powd.Pack PO 17 gm BID ARTURO Administration Potassium Chloride 20 meq 04/14/25 13:45 04/17/25 08:49 Potassium Chloride 20 Meq Er Tablet PO 20 meq QAM ARTURO Administration Labs Labs: Laboratory Results - last 24 hr 04/14/25 04/16/25 04/16/25 05:24 15:18 16:44 WBC 8.0 RBC 2.49 L Hgb 6.8 L* Hct 21.4 L MCV 85.9 MCH 27.3 MCHC 31.8 L RDW 15.6 H Plt Count 167 MPV 10.7 H Sodium 135 L Potassium 4.5 Chloride 110 H Carbon Dioxide 22 Anion Gap 3 L BUN 27 H Creatinine 0.97 Estim Creat Clear Calc 34 Estimated GFR 54 L Glucose 232 H POC Capillary Glucose 199 H Calcium 8.6 Total Bilirubin 0.3 AST 20 ALT 15 Alkaline Phosphatase 67 Total Protein 4.9 L Albumin 2.6 L Blood Type B Positive Antibody Screen Negative Crossmatch See Detail 04/16/25 04/16/25 04/17/25 20:34 22:06 05:22 WBC 6.6 RBC 2.85 L Hgb 7.8 L 7.9 L Hct 24.4 L 25.0 L MCV 87.7 MCH 27.7 MCHC 31.6 L RDW 15.4 H Plt Count 174 MPV 10.7 H Sodium 137 Potassium 3.8 Chloride 112 H Carbon Dioxide 23 Anion Gap 2 L BUN 24 H Creatinine 0.89 Estim Creat Clear Calc 37 Estimated GFR 60 Glucose 139 H POC Capillary Glucose 219 H Calcium 8.8 Total Bilirubin 0.4 AST 21 ALT 13 Alkaline Phosphatase 65 Total Protein 5.0 L Albumin 2.7 L Blood Type Antibody Screen Crossmatch 04/17/25 04/17/25 04/17/25 07:53 11:57 14:47 WBC RBC Hgb 7.8 L Hct 24.7 L MCV MCH MCHC RDW Plt Count MPV Sodium Potassium Chloride Carbon Dioxide Anion Gap BUN Creatinine Estim Creat Clear Calc Estimated GFR Glucose POC Capillary Glucose 145 H 182 H Calcium Total Bilirubin AST ALT Alkaline Phosphatase Total Protein Albumin Blood Type Antibody Screen Crossmatch
--- NOTE | 2025-04-17 16:19 | PM.IMPN ---
Progress Note: A&P Assessment and Plan (1) Acute lower GI bleeding: Code(s): K92.2 - Gastrointestinal hemorrhage, unspecified Status: Acute Assessment and Plan: PPI b.i.d. Started regular diet Monitor H&H Transfuse blood if less than 7 No recent history of endoscopy/colonoscopy Home medication reveals use of clopidogrel and aspirin No evidence of anticoagulant GI consulted and appreciate recommendations No acute intervention from GI Patient will be transferred to tertiary care hospital if she needs angiogram (2) Diabetes mellitus: Qualifiers: Diabetes mellitus complication status: without complication Diabetes mellitus usp insulin use: without usp use Diabetes mellitus type: type 2 Qualified Code(s): E11.9 - Type 2 diabetes mellitus without complications Code(s): E11.9 - Type 2 diabetes mellitus without complications Status: Acute Assessment and Plan: SSI Low-dose sliding scale Hypoglycemia protocol (3) HTN (hypertension): Qualifiers: Hypertension type: essential hypertension Qualified Code(s): I10 - Essential (primary) hypertension Code(s): I10 - Essential (primary) hypertension Status: Acute Assessment and Plan: hold losartan 25 mg p.o. q.d. hold metoprolol 100 mg p.o. q.d. hold amlodipine 5 mg p.o. q.d. (4) HLD (hyperlipidemia): Qualifiers: Hyperlipidemia type: mixed hyperlipidemia Qualified Code(s): E78.2 - Mixed hyperlipidemia Code(s): E78.5 - Hyperlipidemia, unspecified Status: Acute Assessment and Plan: Continue atorvastatin 40 mg p.o. q.d. (5) Bradycardia: Code(s): R00.1 - Bradycardia, unspecified Status: Acute Assessment and Plan: Hold metoprolol if necessary (6) CVA (cerebral vascular accident): Code(s): I63.9 - Cerebral infarction, unspecified Status: Acute Assessment and Plan: Hold aspirin and Plavix MRI 03/25/2025 :Moderate-sized likely early subacute infarct with secondary gyral enhancement and some associated petechial hemorrhage in the left occipital lobe. Plan Code status: Full code No DVT prophylaxis due to possible GI bleed Subjective Date/time seen: 04/17/25 16:19 Interval history: Interval HPI: 84-year-old female with history of hypertension, hyperlipidemia, dementia, GERD, [id number] diabetes mellitus, hypertensive retinopathy, nonproliferative diabetic retinopathy, left eye posterior vitreous detachment, bilateral cataracts status post extraction with intra-ocular lens insertion, presents to [facility] ER due to lower GI bleed. Patient was recently admitted on 03/21/25 due to weakness, confusion, white spots and decreased vision on the right visual Flied. MRI was performed during that admission which showed Moderate-sized likely early subacute infarct with secondary gyral enhancement and some associated petechial hemorrhage in the left occipital lobe. Neurology was consulted and patient was started on clopidogrel 3 weeks ago during discharge in addition to aspirin. Yesterday at the [facility]-term patient had bright red stool around 11:00 p.m. and was brought to ED. Called her son who reports patient do not have any major medical history including CAD or cancer. As per his son colonoscopy was performed by many years ago and no significant finding. In general patient lives by herself and uses cane for mobility. During the evaluation discussed with her son who agrees to holding aspirin and Plavix for now.GI evaluated the patient and reports high risk candidate for colonoscopy and wanted to be transfer to tertiary care center for CT angiogram with possible embolization.Initiated transfer to [facility].Spoke to at [facility] and accepted the patient Review of Systems Review of Systems: All systems are reviewed and are negative unless stated otherwise in the HPI. Exam Narrative: General: Alert, awake, afebrile, in no acute distress. HEENT: PERRL, no rhinorrhea, no post nasal drip, oropharynx clear. Neck: Trachea midline, no JVD, no lymphadenopathy. Cardiovascular: Regular rate and rhythm, no murmurs, rubs or gallops, no peripheral edema. Respiratory: Clear to auscultation bilaterally, no tachypnea, no wheezing, no rhonchi, no rubs, no respiratory distress. Abdomen: Soft, nontender, nondistended, no rebound, no guarding, no peritoneal signs. Rectal: Good rectal tone, patient is passing large amount of small blood clots, bright red blood, no stool identified. Musculoskeletal: No joint swelling or deformity, normal muscle tone. Skin: No rashes or petechia, no signs of infection. Psychiatric: Alert and oriented, normal behavior and judgment for situation. Neurological: Alert and oriented to person, place, and time. Follows all commands. No focal deficits, speech is clear and fluent. Objective Data Vital Signs Vital Signs: Vital Signs - 24 hr 04/16/25 16:25 04/16/25 16:39 04/16/25 17:39 Temperature 98.2 F 98.4 F 97.7 F Pulse Rate 85 77 76 Respiratory Rate 20 20 20 Blood Pressure 105/85 98/70 L 113/69 Pulse Oximetry 100 100 100 Oxygen Delivery 04/16/25 18:39 04/16/25 19:20 04/16/25 20:00 Temperature 98.2 F 98.8 F 97.2 F L Pulse Rate 78 73 71 Respiratory Rate 20 20 16 Blood Pressure 98/55 L 94/60 L 88/60 L Pulse Oximetry 100 100 92 Oxygen Delivery 04/16/25 23:00 04/17/25 00:00 04/17/25 00:53 Temperature 97.7 F 96.8 F L Pulse Rate 65 67 Respiratory Rate 20 24 H Blood Pressure 101/50 L 97/49 L 90/64 L Pulse Oximetry 100 100 Oxygen Delivery 04/17/25 04:00 04/17/25 08:00 04/17/25 08:00 Temperature 98.8 F 97.8 F Pulse Rate 66 73 Respiratory Rate 14 18 Blood Pressure 100/48 L 140/65 Pulse Oximetry 100 100 Oxygen Delivery Room Air 04/17/25 12:00 Temperature 98.4 F Pulse Rate 62 Respiratory Rate 18 Blood Pressure 100/62 Pulse Oximetry 100 Oxygen Delivery Intake/Output Intake/Output: Intake & Output 04/14/25 04/15/25 04/16/25 04/17/25 23:59 23:59 23:59 23:59 Intake Total 540 1100 1451 660 Balance 540 1100 1451 660 Meds/Results Medications: Active Medications Generic Name Dose Route Start Last Admin Trade Name Freq PRN Reason Stop Dose Admin Acetaminophen 500 mg 04/14/25 13:37 Acetaminophen 500 Mg Tablet PO DAILY PRN Pain Atorvastatin Calcium 40 mg 04/14/25 13:40 04/17/25 08:48 Atorvastatin 40 Mg Tablet PO 40 mg QAM ARTURO Administration Dextrose 12.5 gm 04/16/25 15:02 Dextrose 50% 25 Gm/50 Ml Syringe IV PUSH PRN PRN Hypoglycemia Protocol Donepezil HCl 10 mg 04/14/25 13:40 04/17/25 08:48 Donepezil Hcl 10 Mg Tablet PO 10 mg QAM ARTURO Administration Glucagon 1 mg 04/16/25 15:02 Glucagon For Inj 1 Mg Vial IM PRN PRN Hypoglycemia Protocol Glucose 15 gm 04/16/25 15:02 Glucose Oral Gel 15 Gm Of Glucse In 37.5 Gm Tube PO PRN PRN Hypoglycemia Protocol Dextrose 1,000 mls @ 100 mls/hr 04/16/25 15:02 Dextrose 5% 1,000 Ml IVPB PRN PRN Hypoglycemia Protocol Insulin Aspart 2 - 5 units 04/16/25 17:00 04/17/25 12:08 Insulin Aspart (*Bkc) 100 Units/Ml SUB-Q Not Given TIDWM ARTURO Protocol Oxybutynin Chloride 5 mg 04/14/25 21:00 04/14/25 20:44 Oxybutynin Chloride 5 Mg Tablet PO 5 mg On Hold: 04/15/25 01:10 Q12HR ARTURO Administration Pantoprazole Sodium 40 mg 04/14/25 21:00 04/17/25 08:48 Pantoprazole Sodium Iv 40 Mg Vial IV PUSH 40 mg Q12HR ARTURO Administration Polyethylene Glycol 17 gm 04/14/25 17:00 04/17/25 08:50 Polyethylene Glycol 3350 17 Gm Powd.Pack PO 17 gm BID ARTURO Administration Potassium Chloride 20 meq 04/14/25 13:45 04/17/25 08:49 Potassium Chloride 20 Meq Er Tablet PO 20 meq QAM ARTURO Administration Labs Labs: Laboratory Results - last 24 hr 04/14/25 04/16/25 04/16/25 05:24 16:44 20:34 WBC RBC Hgb 7.8 L Hct 24.4 L MCV MCH MCHC RDW Plt Count MPV Sodium Potassium Chloride Carbon Dioxide Anion Gap BUN Creatinine Estim Creat Clear Calc Estimated GFR Glucose POC Capillary Glucose 199 H Calcium Total Bilirubin AST ALT Alkaline Phosphatase Total Protein Albumin Blood Type B Positive Antibody Screen Negative Crossmatch See Detail 04/16/25 04/17/25 04/17/25 22:06 05:22 07:53 WBC 6.6 RBC 2.85 L Hgb 7.9 L Hct 25.0 L MCV 87.7 MCH 27.7 MCHC 31.6 L RDW 15.4 H Plt Count 174 MPV 10.7 H Sodium 137 Potassium 3.8 Chloride 112 H Carbon Dioxide 23 Anion Gap 2 L BUN 24 H Creatinine 0.89 Estim Creat Clear Calc 37 Estimated GFR 60 Glucose 139 H POC Capillary Glucose 219 H 145 H Calcium 8.8 Total Bilirubin 0.4 AST 21 ALT 13 Alkaline Phosphatase 65 Total Protein 5.0 L Albumin 2.7 L Blood Type Antibody Screen Crossmatch 04/17/25 04/17/25 11:57 14:47 WBC RBC Hgb 7.8 L Hct 24.7 L MCV MCH MCHC RDW Plt Count MPV Sodium Potassium Chloride Carbon Dioxide Anion Gap BUN Creatinine Estim Creat Clear Calc Estimated GFR Glucose POC Capillary Glucose 182 H Calcium Total Bilirubin AST ALT Alkaline Phosphatase Total Protein Albumin Blood Type Antibody Screen Crossmatch Hospitalist MIPS Advance Care Plan I have confirmed that the patient's Advanced Care Plan is present, code status is documented, or surrogate decision maker is listed in patient medical record.: Yes Medication Reconciliation I have utilized all available resources to obtain, update and review the patients current medications (includes all prescriptions, OTC, herbals, cannabis, and nutritional supplements).: Yes
--- NOTE | 2025-04-19 07:28 | PM.TDS ---
Transfer Discharge Sum: Prov Provider Date of admission: 04/14/25 06:14 Primary care physician: Rafal Meraz MD Admitting clinician: Bob Roldan MD Consults: 04/14/25 06:15 Consult to Physician Routine Comment: Consulting Provider: Rayray Blake Reason for consultation: Lower GI bleed Has provider been notified: Yes DS: Admitting Diagnosis Discharge Date 04/17/25 Admitting Diagnosis GI bleed DS: Discharge Diagnosis Discharge Diagnosis (1) Acute lower GI bleeding: Code(s): K92.2 - Gastrointestinal hemorrhage, unspecified Status: Acute Assessment and Plan: PPI b.i.d. 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 q.d. hold metoprolol 100 mg p.o. q.d. hold amlodipine 5 mg p.o. q.d. (4) HLD (hyperlipidemia): Qualifiers: Hyperlipidemia type: mixed hyperlipidemia Qualified Code(s): E78.2 - Mixed hyperlipidemia Code(s): E78.5 - Hyperlipidemia, unspecified Status: Acute Assessment and Plan: Continue atorvastatin 40 mg p.o. q.d. (5) Bradycardia: Code(s): R00.1 - Bradycardia, unspecified Status: Acute Assessment and Plan: Hold metoprolol if necessary (6) CVA (cerebral vascular accident): Code(s): I63.9 - Cerebral infarction, unspecified Status: Acute Assessment and Plan: Hold aspirin and Plavix MRI 03/25/2025 :Moderate-sized likely early subacute infarct with secondary gyral enhancement and some associated petechial hemorrhage in the left occipital lobe. Plan Code status: Full code No DVT prophylaxis due to possible GI bleed Transfer Discharge Sum: Med Medications Active and Home Medications: Home Medications acetaminophen 500 mg tablet (Tylenol Extra Strength) 500 mg PO DAILY PRN Pain 09/15/19 [History Confirmed 04/14/25] aspirin 81 mg tablet 81 mg PO DAILY 12/04/20 [History Confirmed 04/14/25] calcium carbonate (Antacid (calcium carbonate)) 200 mg PO BID PRN Heartburn 12/04/20 [History Confirmed 04/14/25] [id number] 8 mg-folic 400 mcg-K 50 mcg-lutein 300 mcg tablet (Centrum Silver Women) 1 tablet PO DAILY 12/04/20 [History Confirmed 04/14/25] metoprolol succinate 100 mg tablet,extended release 24 hr See Rx Instructions .Route .COMPLEX #90 tabs 08/26/24 [Rx Confirmed 04/14/25] potassium chloride 20 mEq tablet,extended release(part/cryst) See Rx Instructions .Route .COMPLEX #90 tabs 08/26/24 [Rx Confirmed 04/14/25] amlodipine 5 mg tablet See Rx Instructions .Route .COMPLEX #90 tabs 09/25/24 [Rx Confirmed 04/14/25] metformin 1,000 mg tablet See Rx Instructions .Route .COMPLEX #180 tabs 11/19/24 [Rx Confirmed 04/14/25] losartan 25 mg tablet 25 mg PO DAILY #90 tabs 12/08/24 [Rx Confirmed 04/14/25] atorvastatin 40 mg tablet See Rx Instructions .Route .COMPLEX #90 tabs 02/06/25 [Rx Confirmed 04/14/25] cephalexin 500 mg capsule 500 mg PO Q12HR #6 caps 03/24/25 [Rx Confirmed 04/14/25] clopidogrel 75 mg tablet 75 mg PO QAM #90 tabs 03/24/25 [Rx Confirmed 04/14/25] donepezil 10 mg tablet See Rx Instructions .Route .COMPLEX #90 tabs 04/06/25 [Rx Confirmed 04/14/25] oxybutynin chloride 5 mg tablet See Rx Instructions .Route .COMPLEX #180 tabs 04/06/25 [Rx Confirmed 04/14/25] Transfer Discharge Sum: Hosp Hospital Course Hospital course: Luna Conner is a 84-year-old female with history of hypertension, hyperlipidemia, dementia, GERD, [id number] diabetes mellitus, hypertensive retinopathy, nonproliferative diabetic retinopathy, left eye posterior vitreous detachment, bilateral cataracts status post extraction with intra-ocular lens insertion, presents to [facility] ER due to lower GI bleed. Patient was recently admitted on 03/21/25 due to weakness, confusion, white spots and decreased vision on the right visual Flied. MRI was performed during that admission which showed Moderate-sized likely early subacute infarct with secondary gyral enhancement and some associated petechial hemorrhage in the left occipital lobe. Neurology was consulted and patient was started on clopidogrel 3 weeks ago during discharge in addition to aspirin. Yesterday at the [facility] patient had bright red stool around 11:00 p.m. and was brought to ED. Called her son who reports patient do not have any major medical history including CAD or cancer. As per his son colonoscopy was performed by many years ago and no significant finding. In general patient lives by herself and uses cane for mobility. During the evaluation discussed with her son who agrees to holding aspirin and Plavix for now.GI evaluated the patient and reports high risk candidate for colonoscopy and wanted to be transfer to tertiary care center for CT angiogram with possible embolization.Initiated transfer to [facility].Spoke to at [facility] and accepted the patient Patient Condition: Gaurded Prognosis Time Spent with Patient Time attestation: Total time spent providing and/or coordinating transfer services: 45 minute Exam Narrative: General: Alert, awake, afebrile, in no acute distress. HEENT: PERRL, no rhinorrhea, no post nasal drip, oropharynx clear. Neck: Trachea midline, no JVD, no lymphadenopathy. Cardiovascular: Regular rate and rhythm, no murmurs, rubs or gallops, no peripheral edema. Respiratory: Clear to auscultation bilaterally, no tachypnea, no wheezing, no rhonchi, no rubs, no respiratory distress. Abdomen: Soft, nontender, nondistended, no rebound, no guarding, no peritoneal signs. Rectal: Good rectal tone, patient is passing large amount of small blood clots, bright red blood, no stool identified. Musculoskeletal: No joint swelling or deformity, normal muscle tone. Skin: No rashes or petechia, no signs of infection. Psychiatric: Alert and oriented, normal behavior and judgment for situation. Neurological: Alert and oriented to person, place, and time. Follows all commands. No focal deficits, speech is clear and fluent.
== END 2025-04-17 22:00 | disposition short-term general hospital (02) | DRG 379 ==
LOC: ANHED 06:28 → ANH3MEDSUR 06:46
PROVIDERS: Internal Medicine Gastroenterology; Admitting Provider Internal Medicine; Emergency Provider Emergency Medicine; PCP Emergency Medicine; Visit Provider General Practice
DX: K92.2 Gastrointestinal hemorrhage, unspecified (principal); Z86.73 Personal history of transient ischemic attack (TIA), and cerebral infarction without residual deficits; D64.9 Anemia, unspecified; E78.2 Mixed hyperlipidemia; E11.319 Type 2 diabetes mellitus with unspecified diabetic retinopathy without macular edema; F03.90 Unspecified dementia, unspecified severity, without behavioral disturbance, psychotic disturbance, mood disturbance, and anxiety; H40.9 Unspecified glaucoma; H35.039 Hypertensive retinopathy, unspecified eye; I10 Essential (primary) hypertension; K21.9 Gastro-esophageal reflux disease without esophagitis; Z79.02 Long term (current) use of antithrombotics/antiplatelets; Z79.82 Long term (current) use of aspirin; Z98.41 Cataract extraction status, right eye; Z98.42 Cataract extraction status, left eye; Z96.1 Presence of intraocular lens; Z90.49 Acquired absence of other specified parts of digestive tract; Z87.891 Personal history of nicotine dependence; Z79.84 Long term (current) use of oral hypoglycemic drugs
CPT/HCPCS: 36415; 36430; 80053; 82948; 83690; 83735; 85014; 85018; 85025; 85027; 86850; 86900; 86901; 86923; 93005; 96365; 99285; A9270; J2470; J3475; J7030; J7050; P9016; P9041